=== PATIENT | female | born 1940 | race Caucasian/White ===

== ENCOUNTER 2016-08-23 03:33 | Inpatient (IN) | payer MEDICARE, BC ==
[2016-08-23] MEDS ORDERED: ONDANSETRON 4 MG/2 ML VIAL IVP STA (04:11)
[2016-08-23 04:33] LABS: Basophils % (A) 0 %; CH 25.3; CHCM 30.8; Eosinophils # (A) 0.2 k/uL (0-0.7); Eosinophils % (A) 2 %; HDW 3.01; HGB 10.3 gm/dL (11.4-16.0); Hypochromasia Moderate; Luc # (Auto) 0.08; Luc % (Auto) 1; Lymphocytes # (A) 0.9 k/uL (1.0-4.8); Lymphocytes % (A) 8 %; MCH 25.7 pg (25.0-35.0); MCHC 31.2 g/dL (31.0-37.0); MCV 82.6 fL (80.0-100.0); Mean Platelet Volume 7.1; Monocytes # (A) 0.6 k/uL (0-1.0); Monocytes % (A) 5 %; Neutrophils # (A) 9.7 k/uL (1.3-7.7); Neutrophils % (A) 85 %; RDW 15.3 % (11.5-15.5); WBC 11.5 k/uL (3.8-10.6); WBC (Perox) 11.06
[2016-08-23 04:45] LABS: Calcium 9.3 mg/dL (8.4-10.2); Potassium 4.7 mmol/L (3.5-5.1); Total Bilirubin 0.3 mg/dL (0.2-1.3); Total Protein 6.6 g/dL (6.3-8.2)
--- NOTE | 2016-08-23 05:02 | XR ---
EXAM: XR Chest, 1 View CLINICAL HISTORY: Reason: Fever TECHNIQUE: Frontal view of the chest. COMPARISON: No relevant prior studies available. FINDINGS: Lungs: Unremarkable. No consolidation. Pleural space: Unremarkable. No pneumothorax. Heart: Unremarkable. No cardiomegaly. Mediastinum: Unremarkable. Bones/joints: Unremarkable. Soft tissues: Left axillary surgical clips. Vasculature: Atherosclerosis of the aorta. IMPRESSION: No acute findings.
[2016-08-23 05:05] LABS: Appearance,Urine Clear (Clear); Bacteria,Urine Rare /hpf; Bilirubin,Urine Negative (Negative); Glucose,Urine (UA) Negative (Negative); Ketones,Urine Negative (Negative); Leukocyte Esterase,Urine Negative (Negative); Nitrite,Urine Negative (Negative); Particle Count 752; Protein,Urine Negative (Negative); RBC,Urine 1 /hpf (0-5); Specific Gravity,Urine 1.009 (1.001-1.035); Squamous Epithelial Cell,Urine <1 /hpf (0-4); UA Billing (MACRO vs. MICRO) MICRO; Urobilinogen,Urine <2.0 mg/dL (<2.0); WBC,Urine 1 /hpf (0-5)
[2016-08-23 05:07] LABS: Partial Thromboplastin Time 21.5 sec (22.0-30.0)
[2016-08-23] MEDS ORDERED: ACETAMINOPHEN TAB 325 MG TAB PO STA (05:14)
[2016-08-23] MEDS ORDERED: IV VANCOMYCIN PER PHARMACY 1 EACH MISC MISCELLANE PRN (05:15)
[2016-08-23] MEDS ORDERED: LEVOFLOXACIN 750MG-D5W PMX 750 MG in DEXTROSE/WATER 1 150ML.BAG IVPB STA (05:15)
--- NOTE | 2016-08-23 05:25 | ED ---
Skin/Abscess/FB HPI - General Chief complaint: Skin/Abscess/Foreign Body Stated complaint: Sick Time Seen by Provider: 08/23/16 04:00 Source: patient Mode of arrival: wheelchair Limitations: no limitations - History of Present Illness Initial comments: This patient is a 76-year-old woman who presents tonight because she was having shaking chills. The symptoms started earlier in the night and continued until she felt that she was shaking so bad she can no longer stay home. The patient also noted that she had some redness to the skin of her breasts and that she has previously had this with cellulitis. She did not measure her temperature but she did feel warm. MD complaint: rash, discoloration -: hour(s) Tetanus Up to Date: yes Location: chest Severity: moderate Improves with: none Worsens with: none Associated symptoms: chills, rigors Treatments Prior to Arrival: none - Related Data Home Medications Medication Instructions Recorded Confirmed Aspirin 81 mg PO DAILY 08/23/16 08/23/16 Atenolol 100 mg PO DAILY 08/23/16 08/23/16 Furosemide [Lasix] 20 mg PO DAILY 08/23/16 08/23/16 Levothyroxine Sodium [Tirosint] 100 mcg PO DAILY 08/23/16 08/23/16 Lisinopril [Zestril] 10 mg PO DAILY 08/23/16 08/23/16 Omeprazole 20 mg PO DAILY 08/23/16 08/23/16 Potassium Chloride [Klor-Con 10] 10 meq PO BID 08/23/16 08/23/16 Simvastatin [Zocor] 20 mg PO DAILY 08/23/16 08/23/16 amLODIPine BESYLATE [Norvasc] 10 mg PO DAILY 08/23/16 08/23/16 rOPINIRole HCL 1 mg PO HS 08/23/16 08/23/16 Allergies Allergy/AdvReac Type Severity Reaction Status Date / Time meperidine [From Demerol] AdvReac Nausea & Verified 08/23/16 04:04 Vomiting Review of Systems ROS Statement: Those systems with pertinent positive or pertinent negative responses have been documented in the HPI. ROS Other: All systems not noted in ROS Statement are negative. Constitutional: Reports: fever, chills. Denies: weakness Respiratory: Reports: cough. Denies: dyspnea, wheezes, hemoptysis Cardiovascular: Denies: chest pain, palpitations, edema Gastrointestinal: Denies: abdominal pain, nausea, vomiting, diarrhea Genitourinary: Denies: dysuria, hematuria Musculoskeletal: Denies: back pain Skin: Reports: as per HPI, rash, change in color Neurological: Denies: headache, weakness, numbness Past Medical History Past Medical History: Cancer, GERD/Reflux, Hyperlipidemia, Hypertension, Osteoarthritis (OA), Thyroid Disorder Additional Past Medical History / Comment(s): bilat breast CA "25 yrs ago" History of Any Multi-Drug Resistant Organisms: None Reported Past Surgical History: Appendectomy, Section, Orthopedic Surgery Additional Past Surgical History / Comment(s): portion of left breast and right breast removed, c- sect x 4, "tailbone removed" Past Psychological History: No Psychological Hx Reported Smoking Status: Former smoker Past Alcohol Use History: None Reported Past Drug Use History: None Reported General Exam Limitations: no limitations General appearance: alert, in no apparent distress Head exam: Present: atraumatic, normocephalic Eye exam: Present: normal appearance. Absent: scleral icterus, conjunctival injection Neck exam: Present: normal inspection. Absent: meningismus Respiratory exam: Present: normal lung sounds bilaterally. Absent: respiratory distress, wheezes, rales, rhonchi, stridor Cardiovascular Exam: Present: regular rate, normal rhythm, normal heart sounds. Absent: systolic murmur, diastolic murmur, rubs, gallop GI/Abdominal exam: Present: soft. Absent: distended, tenderness, guarding, rebound, mass Extremities exam: Present: normal inspection, normal capillary refill. Absent: pedal edema, calf tenderness Neurological exam: Present: alert Skin exam: Present: warm, dry, erythema, other (There is erythema, warmth to the anterior chest, overlying the breasts. The area of involvement of the right breast is larger than on the left side. There is no ulceration. No drainage.) Course Vital Signs 08/23/16 08/23/16 03:45 05:16 Temperature 100.7 F H 102.4 F H Pulse Rate 86 85 Respiratory 18 18 Rate Blood Pressure 195/77 167/72 O2 Sat by Pulse 95 98 Oximetry Medical Decision Making - Lab Data Result diagrams: 08/23/16 04:03 08/23/16 04:03 Lab Results 0508/23/16 08/23/16 Range/Units 04:03 04:03 04:03 WBC 11.5 H (3.8-10.6) k/uL RBC 4.00 (3.80-5.40) m/uL Hgb 10.3 L (11.4-16.0) gm/dL Hct 33.0 L (34.0-46.0) % MCV 82.6 (80.0-100.0) fL MCH 25.7 (25.0-35.0) pg MCHC 31.2 (31.0-37.0) g/dL RDW 15.3 (11.5-15.5) % Plt Count 233 (150-450) k/uL Neutrophils % 85 % Lymphocytes % 8 % Monocytes % 5 % Eosinophils % 2 % Basophils % 0 % Neutrophils # 9.7 H (1.3-7.7) k/uL Lymphocytes # 0.9 L (1.0-4.8) k/uL Monocytes # 0.6 (0-1.0) k/uL Eosinophils # 0.2 (0-0.7) k/uL Basophils # 0.0 (0-0.2) k/uL Hypochromasia Moderate PT (9.0-12.0) sec INR (<1.1) APTT (22.0-30.0) sec Sodium 141 (137-145) mmol/L Potassium 4.7 (3.5-5.1) mmol/L Chloride 110 H (98-107) mmol/L Carbon Dioxide 22 (22-30) mmol/L Anion Gap 9 mmol/L BUN 21 H (7-17) mg/dL Creatinine 1.10 H (0.52-1.04) mg/dL Est GFR (MDRD) Af Amer 58 (>60 ml/min/1.73 sqM) Est GFR (MDRD) Non-Af 48 (>60 ml/min/1.73 sqM) Glucose 112 H (74-99) mg/dL Plasma Lactic Acid Jovani 1.6 (0.7-2.0) mmol/L Calcium 9.3 (8.4-10.2) mg/dL Total Bilirubin 0.3 (0.2-1.3) mg/dL AST 21 (14-36) U/L ALT 22 (9-52) U/L Alkaline Phosphatase 77 (38-126) U/L Total Protein 6.6 (6.3-8.2) g/dL Albumin 3.8 (3.5-5.0) g/dL Urine Color Urine Appearance (Clear) Urine pH (5.0-8.0) Ur Specific [place] (1.001-1.035) Urine Protein (Negative) Urine Glucose (UA) (Negative) Urine Ketones (Negative) Urine Blood (Negative) Urine Nitrite (Negative) Urine Bilirubin (Negative) Urine Urobilinogen (<2.0) mg/dL Ur Leukocyte Esterase (Negative) Urine RBC (0-5) /hpf Urine WBC (0-5) /hpf Ur Squamous Epith Cells (0-4) /hpf Urine Bacteria (None) /hpf 08/23/16 08/23/16 Range/Units 04:03 04:39 WBC (3.8-10.6) k/uL RBC (3.80-5.40) m/uL Hgb (11.4-16.0) gm/dL Hct (34.0-46.0) % MCV (80.0-100.0) fL MCH (25.0-35.0) pg MCHC (31.0-37.0) g/dL RDW (11.5-15.5) % Plt Count (150-450) k/uL Neutrophils % % Lymphocytes % % Monocytes % % Eosinophils % % Basophils % % Neutrophils # (1.3-7.7) k/uL Lymphocytes # (1.0-4.8) k/uL Monocytes # (0-1.0) k/uL Eosinophils # (0-0.7) k/uL Basophils # (0-0.2) k/uL Hypochromasia PT 10.0 (9.0-12.0) sec INR 1.0 (<1.1) APTT 21.5 L (22.0-30.0) sec Sodium (137-145) mmol/L Potassium (3.5-5.1) mmol/L Chloride (98-107) mmol/L Carbon Dioxide (22-30) mmol/L Anion Gap mmol/L BUN (7-17) mg/dL Creatinine (0.52-1.04) mg/dL Est GFR (MDRD) Af Amer (>60 ml/min/1.73 sqM) Est GFR (MDRD) Non-Af (>60 ml/min/1.73 sqM) Glucose (74-99) mg/dL Plasma Lactic Acid Jovani (0.7-2.0) mmol/L Calcium (8.4-10.2) mg/dL Total Bilirubin (0.2-1.3) mg/dL AST (14-36) U/L ALT (9-52) U/L Alkaline Phosphatase (38-126) U/L Total Protein (6.3-8.2) g/dL Albumin (3.5-5.0) g/dL Urine Color Light Yellow Urine Appearance Clear (Clear) Urine pH 5.0 (5.0-8.0) Ur Specific [place] 1.009 (1.001-1.035) Urine Protein Negative (Negative) Urine Glucose (UA) Negative (Negative) Urine Ketones Negative (Negative) Urine Blood Trace H (Negative) Urine Nitrite Negative (Negative) Urine Bilirubin Negative (Negative) Urine Urobilinogen <2.0 (<2.0) mg/dL Ur Leukocyte Esterase Negative (Negative) Urine RBC 1 (0-5) /hpf Urine WBC 1 (0-5) /hpf Ur Squamous Epith Cells <1 (0-4) /hpf Urine Bacteria Rare H (None) /hpf Disposition Clinical Impression: Cellulitis Disposition: ADMITTED IP TO THIS HOSP Condition: Fair Referrals: Marta Burgess DO [Primary Care Provider] - 1-2 days
[2016-08-23] MEDS ORDERED: NALOXONE 0.4 MG/ML 1 ML VIAL IV PRN (05:26)
[2016-08-23] MEDS ORDERED: VANCOMYCIN 1,500 MG in SODIUM CHLORIDE 0.9% 250 ML IVPB STA (05:27)
[2016-08-23] MEDS: SODIUM CHLORIDE 0.9% 1,000 ML IV SCH ×2 (05:36→17:49)
[2016-08-23] MEDS: ATORVASTATIN 10 MG TAB PO SCH (09:54)
[2016-08-23] MEDS: amLODIPine 10 MG TAB PO SCH (09:55)
[2016-08-23] MEDS: ASPIRIN 81 MG CHEW PO SCH (09:55)
[2016-08-23] MEDS: POTASSIUM CHLORIDE ER 10 MEQ TAB.ER.PRT PO SCH ×2 (09:55→19:54)
[2016-08-23] MEDS: LISINOPRIL 10 MG TAB PO SCH (09:55)
[2016-08-23] MEDS: FUROSEMIDE 20 MG TAB PO SCH (09:55)
[2016-08-23] MEDS: PANTOPRAZOLE 40 MG TABLET PO SCH (09:55)
[2016-08-23] MEDS: LEVOTHYROXINE 100 MCG TAB PO SCH (09:55)
[2016-08-23] MEDS: ATENOLOL 50 MG TAB PO SCH (09:55)
[2016-08-23] MEDS: NAFCILLIN 2 GM in SODIUM CHLORIDE 0.9% 100 ML IVPB SCH ×3 (11:20→17:53)
--- NOTE | 2016-08-23 11:22 | P.HPIM ---
History of Present Illness H&P Date: 08/23/16 Chief Complaint: Fever chills cellulitis both breasts Pleasant 76-year-old female whose primary care provider is Dr. santiago who Dr. Moya is covering for presented to the emergency room with a chief complaint of waking up shaking feeling chilled. Patient stated that she got up out of bed went into the bathroom stated she had pain in her bilateral breast noted significant redness to the skin of the breast right greater than the left.. Patient stated that she did not take her temperature felt warm. Patient stated that she was concerned and came into the emergency room to be evaluated for the above-mentioned symptoms. In the emergency room the temp was elevated 102.4. With a white count of 11.5 Patient states she has had a similar episode a cellulitis involving the bilateral breasts. Patient states about 6-8 weeks ago she was treated in the outpatient setting for cellulitis involving the left breast. Patient states she was given a prescription for an oral antibiotic not sure of the name of the antibiotic took it until it was gone did note that there was an improvement in the redness involving the left breast. Patient does give a history of having breast cancer left breast 25 years ago treated with radiation treatment and chemotherapy. Patient stated about 15 years ago had bilateral breast reductions done. Patient's states that the right breast increased swelling and increased tenderness compared to the left breast. Denies any chest pain dizziness lightheadedness or shortness of breath states that she is normally an active individual is on no new medication Review of Systems Essentially unremarkable except as mentioned in the present illness Past Medical History Past Medical History: Cancer, GERD/Reflux, Hyperlipidemia, Hypertension, Osteoarthritis (OA), Thyroid Disorder Additional Past Medical History / Comment(s): bilat breast CA "25 yrs ago" History of Any Multi-Drug Resistant Organisms: None Reported Past Surgical History: Appendectomy, Section, Orthopedic Surgery Additional Past Surgical History / Comment(s): portion of left breast and right breast removed, c- sect x 4, "tailbone removed" Past Psychological History: No Psychological Hx Reported Smoking Status: Former smoker Past Alcohol Use History: None Reported Past Drug Use History: None Reported - Past Family History Sister(s) Family Medical History: Cancer Additional Family Medical History / Comment(s): Patient's sister had leukemia Brother(s) Family Medical History: Coronary Artery Disease (CAD) Medications and Allergies Home Medications Medication Instructions Recorded Confirmed Type Acetaminophen [Tylenol Arthritis] 1,300 mg PO DAILY 08/23/16 08/23/16 History Aspirin 81 mg PO DAILY 08/23/16 08/23/16 History Atenolol 100 mg PO DAILY 08/23/16 08/23/16 History Celecoxib [CeleBREX] 200 mg PO DAILY 08/23/16 08/23/16 History Diclofenac Sodium [Voltaren Gel] 1 applic TOPICAL Q6H PRN 08/23/16 08/23/16 History Fexofenadine HCl [Anali Allergy] 180 mg PO DAILY 08/23/16 08/23/16 History Furosemide [Lasix] 20 mg PO DAILY 08/23/16 08/23/16 History Levothyroxine Sodium [Tirosint] 100 mcg PO DAILY 08/23/16 08/23/16 History Lisinopril [Zestril] 10 mg PO DAILY 08/23/16 08/23/16 History Omeprazole 20 mg PO DAILY PRN 08/23/16 08/23/16 History Potassium Chloride [Klor-Con 10] 10 meq PO BID 08/23/16 08/23/16 History Simvastatin [Zocor] 20 mg PO DAILY@1200 08/23/16 08/23/16 History amLODIPine BESYLATE [Norvasc] 10 mg PO DAILY 08/23/16 08/23/16 History rOPINIRole HCL 1 mg PO HS 08/23/16 08/23/16 History rOPINIRole HCL [Requip] 0.5 mg PO DAILY PRN 08/23/16 08/23/16 History Allergies Allergy/AdvReac Type Severity Reaction Status Date / Time meperidine [From Demerol] AdvReac Nausea & Verified 08/23/16 13:27 Vomiting Physical Exam Vitals: Vital Signs Temp Pulse Pulse Resp BP BP Pulse Ox 08/23/16 08:00 99.4 F 73 16 128/67 93 L 08/23/16 06:39 97.2 F L 74 18 137/63 98 08/23/16 05:37 100.8 F H 72 18 165/75 98 08/23/16 05:16 102.4 F H 85 18 167/72 98 08/23/16 03:45 100.7 F H 86 18 195/77 95 Intake and Output 08/22/16 08/23/16 08/23/16 22:59 06:59 14:59 Other: Weight 78.925 kg GENERAL APPEARANCE: 76-year-old female pleasant talkative patient is alert, oriented, in no acute distress. VITAL SIGNS: Reviewed HEENT: Head is normocephalic and atraumatic. Pupils are equal and reactive. The nares are patent. Oropharynx is clear without lesions. NECK: Supple without lymphadenopathy. Traches midline. Chest significant erythrema warmth to the anterior chest wall involving the bilateral breast. The right breast is larger with more tenderness compared to the left breast. There is no open ulceration areas. The skin is intact. With palpitation the right breast is tender. Surgically the nipples have been removed HEART: S1, S2. Regular rate and rhythm. No murmur noted denying chest pain LUNGS: No crackles or wheezes are heard. On room air adequate air movement ABDOMEN: Soft, nontender, nondistended with good bowel sounds. No peritoneal signs. No palpable organomegaly or masses. EXTREMITIES: Normal skin color and turgor. No cyanosis, rash, ulceration, clubbing or edema. Radial pedal pulses are 2/4 bilaterally. NEUROLOGICAL: No focal deficits. Strength and sensation are grossly intact. Results CBC & Chem 7: 08/24/16 07:16 08/24/16 07:16 Labs: Abnormal Lab Results - Last 24 Hours (Table) 08/23/16 08/23/16 08/23/16 Range/Units 04:03 04:03 04:03 WBC 11.5 H (3.8-10.6) k/uL Hgb 10.3 L (11.4-16.0) gm/dL Hct 33.0 L (34.0-46.0) % Neutrophils # 9.7 H (1.3-7.7) k/uL Lymphocytes # 0.9 L (1.0-4.8) k/uL APTT 21.5 L (22.0-30.0) sec Chloride 110 H (98-107) mmol/L BUN 21 H (7-17) mg/dL Creatinine 1.10 H (0.52-1.04) mg/dL Glucose 112 H (74-99) mg/dL Urine Blood (Negative) Urine Bacteria (None) /hpf 08/23/16 Range/Units 04:39 WBC (3.8-10.6) k/uL Hgb (11.4-16.0) gm/dL Hct (34.0-46.0) % Neutrophils # (1.3-7.7) k/uL Lymphocytes # (1.0-4.8) k/uL APTT (22.0-30.0) sec Chloride (98-107) mmol/L BUN (7-17) mg/dL Creatinine (0.52-1.04) mg/dL Glucose (74-99) mg/dL Urine Blood Trace H (Negative) Urine Bacteria Rare H (None) /hpf Assessment and Plan Plan: Impression Present on admission leukocytosis febrile suspect sepsis due to cellulitis bilateral breast Present on admission cellulitis bilateral breasts failed outpatient treatment oral antibiotic treatment 6 weeks prior History of breast cancer left breast 25 years ago History of breast reduction 15 years ago Hypertension essential benign Plan Resume home meds as appropriate Infectious disease consultation IV vancomycin and nafcillin as ordered DVT and GI prophylaxis Repeat labs in the morning Further recommendations pending will follow Pain control The above dictated assessment and findings were discussed with dr moya . Impression and the plan of care have been dictated as directed. Johana Frausto nurse practitioner acting as a scribe for dr moya
[2016-08-23 14:42] VITALS: BMI 31.8
[2016-08-23] MEDS: MELOXICAM 7.5 MG TAB PO SCH (19:04)
[2016-08-23] MEDS: ACETAMINOPHEN TAB 325 MG TAB PO PRN (19:53)
[2016-08-23] MEDS ORDERED: VANCOMYCIN 1,250 MG in SODIUM CHLORIDE 0.9% 250 ML IVPB SCH (21:00)
[2016-08-24] MEDS: NAFCILLIN 2 GM in SODIUM CHLORIDE 0.9% 100 ML IVPB SCH ×2 (00:31→06:15)
[2016-08-24] MEDS: SODIUM CHLORIDE 0.9% 1,000 ML IV SCH ×3 (00:31→21:38)
[2016-08-24] MEDS: LEVOTHYROXINE 100 MCG TAB PO SCH (06:15)
[2016-08-24 08:10] LABS: Basophils % (A) 0 %; CH 25.1; CHCM 29.5; Eosinophils # (A) 0.1 k/uL (0-0.7); Eosinophils % (A) 1 %; HCT 28.7 % (34.0-46.0); HDW 2.84; Hypochromasia Marked; Luc # (Auto) 0.12; Luc % (Auto) 2; Lymphocytes % (A) 16 %; MCHC 30.4 g/dL (31.0-37.0); MCV 85.4 fL (80.0-100.0); Mean Platelet Volume 6.7; Monocytes # (A) 0.3 k/uL (0-1.0); Monocytes % (A) 5 %; Neutrophils # (A) 4.6 k/uL (1.3-7.7); Neutrophils % (A) 76 %; RBC 3.36 m/uL (3.80-5.40); RDW 15.6 % (11.5-15.5); WBC 6.1 k/uL (3.8-10.6); WBC (Perox) 6.19
[2016-08-24 08:14] LABS: HGB 8.7 gm/dL (11.4-16.0)
[2016-08-24 08:20] LABS: Calcium 8.3 mg/dL (8.4-10.2); Total Bilirubin 0.8 mg/dL (0.2-1.3); Total Protein 5.2 g/dL (6.3-8.2)
[2016-08-24] MEDS: LISINOPRIL 10 MG TAB PO SCH (09:46)
[2016-08-24] MEDS: MELOXICAM 7.5 MG TAB PO SCH (09:46)
[2016-08-24] MEDS: FUROSEMIDE 20 MG TAB PO SCH (09:46)
[2016-08-24] MEDS: amLODIPine 10 MG TAB PO SCH (09:46)
[2016-08-24] MEDS: PANTOPRAZOLE 40 MG TABLET PO SCH (09:46)
[2016-08-24] MEDS: ASPIRIN 81 MG CHEW PO SCH (09:46)
[2016-08-24] MEDS: ATORVASTATIN 10 MG TAB PO SCH (09:46)
[2016-08-24] MEDS: POTASSIUM CHLORIDE ER 10 MEQ TAB.ER.PRT PO SCH ×2 (09:47→21:37)
--- NOTE | 2016-08-24 09:59 | P.PN ---
Subjective 76-year-old female being seen on rounds this morning there is increased redness and tenderness to the bilateral breast impaired to admission patient states the breast more "tender to the touch" patient's temp this morning 97.9 with white count down to 6.1 Hospital course Patient's initial presentation to the emergency room with a sudden onset of fever chills with bilateral cellulitis involving both breasts. In the emergency room the temp was 102 with a white count 11.5. Patient stated that she had a similar episode 6-8 weeks ago was treated in the outpatient setting for cellulitis involving the left breast with a course of antibiotics that she did complete and did follow-up with one week later and the PCPs office with a noted improvement. Patient does have a history of having breast cancer left breast 25 years ago with bilateral breast reduction 15 years ago the breast cancer on the left breast was treated with radiation treatment 25 years ago no chemotherapy Objective - Vital Signs Vital signs: Vital Signs Temp 97.9 F 08/24/16 07:00 Pulse 58 L 08/24/16 09:44 Resp 16 08/24/16 07:00 BP 124/60 08/24/16 09:44 Pulse Ox 95 08/24/16 07:00 Intake & Output 08/23/16 08/24/16 08/24/16 18:59 06:59 18:59 Intake Total 2019 1099 Balance 2019 1100 Weight 79 kg Intake: Intake, IV Titration 1300 800 Amount Nafcillin 2 gm In Sodium 100 100 Chloride 0.9% 100 ml @ 100 mls/min IVPB Q6H [facility] Rx#:[id number] Sodium Chloride 0.9% 1, 800 700 000 ml @ 100 mls/hr IV . Q10H [facility] Rx#:[id number] Vancomycin 1,250 mg In 250 Sodium Chloride 0.9% 250 ml @ 125 mls/hr IVPB Q24H [facility] Rx#:[id number] Vancomycin 1,500 mg In 150 Sodium Chloride 0.9% 250 ml @ 125 mls/hr IVPB ONCE STA Rx#:[id number] Oral 720 300 Other: Voiding Method Toilet # Voids 3 1 - Exam Physical exam 76-year-old female resting in bed states the bilateral breast are more tender to the touch Lungs essentially clear adequate air movement on room air Heart S1-S2 audible and regular Abdomen soft nontender no reports of nausea vomiting no frequent stooling Chest bilateral breast cellulitis positive tenderness soft Extremities no edema noted - Labs CBC & Chem 7: 08/24/16 07:16 08/24/16 07:16 Labs: Abnormal Lab Results - Last 24 Hours (Table) 08/24/16 08/24/16 Range/Units 07:16 07:16 RBC 3.36 L (3.80-5.40) m/uL Hgb 8.7 L D (11.4-16.0) gm/dL Hct 28.7 L (34.0-46.0) % MCHC 30.4 L (31.0-37.0) g/dL RDW 15.6 H (11.5-15.5) % Chloride 110 H (98-107) mmol/L BUN 18 H (7-17) mg/dL Creatinine 1.30 H (0.52-1.04) mg/dL Calcium 8.3 L (8.4-10.2) mg/dL Total Protein 5.2 L (6.3-8.2) g/dL Albumin 2.6 L (3.5-5.0) g/dL Microbiology - Last 24 Hours (Table) 08/23/16 04:03 Blood Culture - Preliminary Blood No Growth after 24 hours 08/23/16 04:39 Urine Culture - Preliminary Urine,Voided Assessment and Plan Plan: Impression Present on admission leukocytosis febrile suspect sepsis due to cellulitis bilateral breast Present on admission cellulitis bilateral breasts failed outpatient treatment oral antibiotic treatment 6 weeks prior History of breast cancer left breast 25 years ago treated with radiation therapy History of breast reduction 15 years ago Hypertension essential benign Present on admission acute renal failure suspect due to poor oral intake Plan Resume home meds as appropriate Infectious disease consultation IV vancomycin and nafcillin as ordered DVT and GI prophylaxis Repeat labs in the morning Further recommendations pending will follow Pain control The above dictated assessment and findings were discussed with dr mack . Impression and the plan of care have been dictated as directed. Johana Frausto nurse practitioner acting as a scribe for dr mack
[2016-08-24] MEDS: ACETAMINOPHEN TAB 325 MG TAB PO PRN ×2 (10:50→20:21)
--- NOTE | 2016-08-24 11:30 | P.CONS ---
History of Present Illness - Reason for Consult Consult date: 08/24/16 - Chief Complaint Pain and swelling to the breasts - History of Present Illness 76-year-old female who presents to Hospital with a several-day history of present discomfort to her right breast. Associated with increasing amounts of erythema. She had fever and chills occurred. The erythema crossed onto her left breast. The patient relates that in the past she's had more difficulties with her left breast with cellulitis. She has the somewhat remote history of a left breast carcinoma. She underwent a lumpectomy and axillary dissection at the time of her cancer. She was treated with radiation therapy and chemotherapy therapy. She relates in the years since that she's had an occasional bout of difficulty with her left breast. She relates that she did not search developed cellulitis events until she had a bilateral breast reduction. She does believe that this is the first time that the right breast has been in the first point of infection. She does relate that she is still having some discomfort. Fever has slightly improved. The redness to the chest has not had significant improvement as of yet. Review of Systems Gen. she did have fever and chills. HEENT:Denies headache or acute visual change. Denies sinus or mouth discomforts. Denies neck stiffness or pain. Denies significant oral cavity pain. Denies difficulty on swallowing. Lungs: Denies significant shortness of breath, cough, sputum production, or hemoptysis. Cardiovascular: Denies significant shortness of breath, chest pain, chest wall pain, orthopnea, dyspnea on exertion, syncope Gastrointestinal:Denies nausea, vomiting, diarrhea, constipation, hematemesis, melena, hematochezia. No no significant change of bowel habit noticed. Musculoskeletal: denies significant myalgias or arthralgias. No new joint swelling. Denies new back pain. Skin: The significant erythema and tenderness the bilateral breast as noted in the HPI no other skin lesions. Denies any significant difficulty with upper extremity swelling after her surgeries. Does not have difficulties with lymphedema or lymphangitis in the past. Neuro: Denies headache or visual change. Denies any new onset weakness or difficulty with ambulation. Denies falls or seizures. Psychiatric:Denies anxiety or depression. Endocrine: Denies significant fatigue, denies significant weight loss or weight gain. Past Medical History Past Medical History: Cancer, GERD/Reflux, Hyperlipidemia, Hypertension, Osteoarthritis (OA), Thyroid Disorder Additional Past Medical History / Comment(s): bilat breast CA "25 yrs ago" History of Any Multi-Drug Resistant Organisms: None Reported Past Surgical History: Appendectomy, Section, Orthopedic Surgery Additional Past Surgical History / Comment(s): portion of left breast and right breast removed, c- sect x 4, "tailbone removed" Past Psychological History: No Psychological Hx Reported Additional Psychological History / Comment(s): lives with the family. No animal exposures. Retired. No experience. Travel history Smoking Status: Former smoker (Briefly many years ago for no more than about a month) Past Alcohol Use History: None Reported Past Drug Use History: None Reported - Past Family History Sister(s) Family Medical History: Cancer Additional Family Medical History / Comment(s): Patient's sister had leukemia Brother(s) Family Medical History: Coronary Artery Disease (CAD) Medications and Allergies Home Medications and Allergies Comment(s): Current Medications Acetaminophen (Tylenol Tab) 650 mg PO Q6HR PRN PRN Reason: Mild Pain or Fever > 100.5 Last Admin: 08/24/16 10:50 Dose: 650 mg Amlodipine Besylate (Norvasc) 10 mg PO DAILY [facility] Last Admin: 08/24/16 09:46 Dose: 10 mg Aspirin (Aspirin) 81 mg PO DAILY [facility] Last Admin: 08/24/16 09:46 Dose: 81 mg Atenolol (Tenormin) 100 mg PO DAILY [facility] Last Admin: 08/23/16 09:55 Dose: 100 mg Atorvastatin Calcium (Lipitor) 10 mg PO DAILY [facility] Last Admin: 08/24/16 09:46 Dose: 10 mg Furosemide (Lasix) 20 mg PO DAILY [facility] Last Admin: 08/24/16 09:46 Dose: 20 mg Sodium Chloride (Saline 0.9%) 1,000 mls @ 100 mls/hr IV .Q10H [facility] Last Admin: 08/24/16 00:31 Dose: 100 mls/hr Daptomycin 500 mg/ Sodium (Chloride) 50 mls @ 100 mls/hr IV Q24H [facility] Ketorolac Tromethamine (Toradol) 15 mg IVP Q6HR [facility] Stop: 08/25/16 06:01 Levothyroxine Sodium (Synthroid) 100 mcg PO 0630 [facility] Last Admin: 08/24/16 06:15 Dose: 100 mcg Lisinopril (Zestril) 10 mg PO DAILY [facility] Last Admin: 08/24/16 09:46 Dose: 10 mg Naloxone HCl (Narcan) 0.2 mg IV Q2M PRN PRN Reason: Opioid Reversal Pantoprazole Sodium (Protonix) 40 mg PO AC-BRKFST [facility] Last Admin: 08/24/16 09:46 Dose: 40 mg Potassium Chloride (K-Dur 10) 10 meq PO BID [facility] Last Admin: 08/24/16 09:47 Dose: 10 meq Ropinirole HCl (Requip) 1 mg PO HS [facility] Last Admin: 08/23/16 19:54 Dose: 1 mg Home Medications Medication Instructions Recorded Confirmed Type Acetaminophen [Tylenol Arthritis] 1,300 mg PO DAILY 08/23/16 08/23/16 History Aspirin 81 mg PO DAILY 08/23/16 08/23/16 History Atenolol 100 mg PO DAILY 08/23/16 08/23/16 History Celecoxib [CeleBREX] 200 mg PO DAILY 08/23/16 08/23/16 History Diclofenac Sodium [Voltaren Gel] 1 applic TOPICAL Q6H PRN 08/23/16 08/23/16 History Fexofenadine HCl [Anali Allergy] 180 mg PO DAILY 08/23/16 08/23/16 History Furosemide [Lasix] 20 mg PO DAILY 08/23/16 08/23/16 History Levothyroxine Sodium [Tirosint] 100 mcg PO DAILY 08/23/16 08/23/16 History Lisinopril [Zestril] 10 mg PO DAILY 08/23/16 08/23/16 History Omeprazole 20 mg PO DAILY PRN 08/23/16 08/23/16 History Potassium Chloride [Klor-Con 10] 10 meq PO BID 08/23/16 08/23/16 History Simvastatin [Zocor] 20 mg PO DAILY@1200 08/23/16 08/23/16 History amLODIPine BESYLATE [Norvasc] 10 mg PO DAILY 08/23/16 08/23/16 History rOPINIRole HCL 1 mg PO HS 08/23/16 08/23/16 History rOPINIRole HCL [Requip] 0.5 mg PO DAILY PRN 08/23/16 08/23/16 History Allergies Allergy/AdvReac Type Severity Reaction Status Date / Time meperidine [From Demerol] AdvReac Nausea & Verified 08/23/16 13:27 Vomiting Physical Exam Vitals: Vital Signs Temp Pulse Resp BP BP Pulse Ox 08/24/16 09:44 58 L 124/60 08/24/16 07:00 97.9 F 64 16 98/46 95 08/23/16 23:25 98.5 F 65 16 111/52 93 L 08/23/16 15:41 73 16 08/23/16 15:00 99 F 68 16 137/63 96 Intake and Output 08/23/16 08/24/16 08/24/16 22:59 06:59 14:59 Intake Total 1100 Balance 1100 Intake: Intake, IV Titration 800 Amount Nafcillin 2 gm In Sodium 100 Chloride 0.9% 100 ml @ 100 mls/min IVPB Q6H [facility] Rx#:[id number] Sodium Chloride 0.9% 1, 700 000 ml @ 100 mls/hr IV . Q10H [facility] Rx#:[id number] Oral 300 Other: Voiding Method Toilet # Voids 3 1 Pleasant 76-year-old woman who is mildly uncomfortable but not in distress HEENT: Anicteric conjunctiva are pink and moist nasal mucosa grossly intact without significant lesions, there is no thrush. Neck: The neck is supple without significant lymphadenopathy or thyromegaly. Lungs: Good bilateral air entry without significant crackles or wheezing. There is no significant bronchial sounds. There is no egophony or dullness. Heart: Regular rate and rhythm with an audible S1-S2, no S3 no S4. There is no significant murmur click or rub, PMI was nondisplaced. Abdomen: Obese, Positive bowel sounds soft and nontender without palpable masses or organomegaly. There was no guarding or rebound. Extremities: The upper extremities have excellent pulses they are symmetric, no significant petechiae or telangiectasia. No splinter hemorrhages were noted. The lower extremities are free from significant edema. The peripheral pulses were 2+ and symmetric. Neuro: Awake alert oriented to person place and time. There are no acute new gross focal sensory motor deficits. Breasts: With the nurse present the patient is evaluated. There is evidence of the prior breast reduction. There is not extensive swelling to either breast. However there is dense erythema to both breasts. The left breast does have evidence of the prior surgery. And there is the woody texture to the breast since his radiation therapy. It however is not very tender. There is no left axillary tenderness. No other abnormal lymph nodes are noted. In the left arm has no evidence of any lymphedema or lymphangitis. The erythema does travel minimally onto the left chest wall just above the breast Results CBC & Chem 7: 08/24/16 07:16 08/24/16 07:16 Labs: Abnormal Lab Results - Last 24 Hours (Table) 08/24/16 08/24/16 Range/Units 07: 07:16 RBC 3.36 L (3.80-5.40) m/uL Hgb 8.7 L D (11.4-16.0) gm/dL Hct 28.7 L (34.0-46.0) % MCHC 30.4 L (31.0-37.0) g/dL RDW 15.6 H (11.5-15.5) % Chloride 110 H (98-107) mmol/L BUN 18 H (7-17) mg/dL Creatinine 1.30 H (0.52-1.04) mg/dL Calcium 8.3 L (8.4-10.2) mg/dL Total Protein 5.2 L (6.3-8.2) g/dL Albumin 2.6 L (3.5-5.0) g/dL Microbiology - Last 24 Hours (Table) 08/23/16 04:03 Blood Culture - Preliminary Blood No Growth after 24 hours 08/23/16 04:39 Urine Culture - Preliminary Urine,Voided Laboratory Results WBC 6.1 k/uL (3.8-10.6) 08/24/16 07:16 RBC 3.36 m/uL (3.80-5.40) L 08/24/16 07:16 Hgb 8.7 gm/dL (11.4-16.0) L D 08/24/16 07:16 Hct 28.7 % (34.0-46.0) L 08/24/16 07:16 MCV 85.4 fL (80.0-100.0) 08/24/16 07:16 MCH 26.0 pg (25.0-35.0) 08/24/16 07:16 MCHC 30.4 g/dL (31.0-37.0) L 08/24/16 07:16 RDW 15.6 % (11.5-15.5) H 08/24/16 07:16 Plt Count 172 k/uL (150-450) 08/24/16 07:16 Neutrophils % 76 % 08/24/16 07:16 Lymphocytes % 16 % 08/24/16 07:16 Monocytes % 5 % 08/24/16 07:16 Eosinophils % 1 % 08/24/16 07:16 Basophils % 0 % 08/24/16 07:16 Neutrophils # 4.6 k/uL (1.3-7.7) 08/24/16 07:16 Lymphocytes # 1.0 k/uL (1.0-4.8) 08/24/16 07:16 Monocytes # 0.3 k/uL (0-1.0) 08/24/16 07:16 Eosinophils # 0.1 k/uL (0-0.7) 08/24/16 07:16 Basophils # 0.0 k/uL (0-0.2) 08/24/16 07:16 Hypochromasia Marked 08/24/16 07:16 PT 10.0 sec (9.0-12.0) 08/23/16 04:03 INR 1.0 (<1.1) 08/23/16 04:03 APTT 21.5 sec (22.0-30.0) L 08/23/16 04:03 Sodium 138 mmol/L (137-145) 08/24/16 07:16 Potassium 4.0 mmol/L (3.5-5.1) 08/24/16 07:16 Chloride 110 mmol/L (98-107) H 08/24/16 07:16 Carbon Dioxide 22 mmol/L (22-30) 08/24/16 07:16 Anion Gap 6 mmol/L 08/24/16 07:16 BUN 18 mg/dL (7-17) H 08/24/16 07:16 Creatinine 1.30 mg/dL (0.52-1.04) H 08/24/16 07:16 Est GFR (MDRD) Af Amer 48 (>60 ml/min/1.73 sqM) 08/24/16 07:16 Est GFR (MDRD) Non-Af 40 (>60 ml/min/1.73 sqM) 08/24/16 07:16 Glucose 89 mg/dL (74-99) 08/24/16 07:16 Plasma Lactic Acid Jovani 1.6 mmol/L (0.7-2.0) 08/23/16 04:03 Calcium 8.3 mg/dL (8.4-10.2) L 08/24/16 07:16 Total Bilirubin 0.8 mg/dL (0.2-1.3) 08/24/16 07:16 AST 26 U/L (14-36) 08/24/16 07:16 ALT 29 U/L (9-52) 08/24/16 07:16 Alkaline Phosphatase 65 U/L (38-126) 08/24/16 07:16 Total Protein 5.2 g/dL (6.3-8.2) L 08/24/16 07:16 Albumin 2.6 g/dL (3.5-5.0) L 08/24/16 07:16 Urine Color Light Yellow 08/23/16 04:39 Urine Appearance Clear (Clear) 08/23/16 04:39 Urine pH 5.0 (5.0-8.0) 08/23/16 04:39 Ur Specific [place] 1.009 (1.001-1.035) 08/23/16 04:39 Urine Protein Negative (Negative) 08/23/16 04:39 Urine Glucose (UA) Negative (Negative) 08/23/16 04:39 Urine Ketones Negative (Negative) 08/23/16 04:39 Urine Blood Trace (Negative) H 08/23/16 04:39 Urine Nitrite Negative (Negative) 08/23/16 04:39 Urine Bilirubin Negative (Negative) 08/23/16 04:39 Urine Urobilinogen <2.0 mg/dL (<2.0) 08/23/16 04:39 Ur Leukocyte Esterase Negative (Negative) 08/23/16 04:39 Urine RBC 1 /hpf (0-5) 08/23/16 04:39 Urine WBC 1 /hpf (0-5) 08/23/16 04:39 Ur Squamous Epith Cells <1 /hpf (0-4) 08/23/16 04:39 Urine Bacteria Rare /hpf (None) H 08/23/16 04:39 Microbiology 08/23/16 04:03 Blood Blood Culture - Preliminary No Growth after 24 hours 08/23/16 04:39 Urine,Voided Urine Culture - Preliminary Assessment and Plan (1) Cellulitis of female breast Narrative/Plan: 76-year-old female who has a remote history of left breast carcinoma status post lumpectomy, left axillary dissection followed by radiation and chemotherapy. His is some difficulties with intermittent bouts of left breast cellulitis. This time over she developed some erythema to her right breast. Despite a course of oral antibiotic therapy did not improve and then it spread to her left breast. Developed a fever to 102. Developed leukocytosis and discomfort. Because he presented to the hospital for failure of outpatient antibiotic therapy. Here she's been treated with nafcillin and vancomycin therapy. Her fever has improved but she still feels somewhat poorly. The breasts are still erythematous slightly swollen and tender. If this time would alter antibiotic therapy to daptomycin. This will give us a rapidly bacteriocidal treatment for potentially resistant pathogens. Nafcillin and vancomycin are discontinued. A couple doses of Toradol will be utilized in [place] meloxicam. Her creatinine is being monitored. Will expect improvement in the next 24-48 hours. Status: Acute (2) History of left breast cancer Status: Acute (3) Leukocytosis Status: Acute (4) Fever Status: Acute
[2016-08-24] MEDS: ATENOLOL 50 MG TAB PO SCH (13:04)
[2016-08-24] MEDS: KETOROLAC 30 MG/ML 1 ML VIAL IVP SCH ×3 (13:07→23:59)
[2016-08-24] MEDS: DAPTOmycin 500 MG in SODIUM CHLORIDE 0.9% 50 ML IV SCH (13:08)
[2016-08-25] MEDS: LEVOTHYROXINE 100 MCG TAB PO SCH (06:21)
[2016-08-25] MEDS: KETOROLAC 30 MG/ML 1 ML VIAL IVP SCH (06:21)
[2016-08-25 07:52] LABS: Basophils % (A) 0 %; CH 24.8; CHCM 28.5; Eosinophils # (A) 0.2 k/uL (0-0.7); Eosinophils % (A) 4 %; HDW 2.88; HGB 8.1 gm/dL (11.4-16.0); Hypochromasia Marked; Luc % (Auto) 4; Lymphocytes # (A) 1.1 k/uL (1.0-4.8); Lymphocytes % (A) 21 %; MCH 25.4 pg (25.0-35.0); MCHC 29.1 g/dL (31.0-37.0); MCV 87.4 fL (80.0-100.0); Mean Platelet Volume 7.9; Monocytes # (A) 0.4 k/uL (0-1.0); Monocytes % (A) 7 %; Neutrophils # (A) 3.4 k/uL (1.3-7.7); Neutrophils % (A) 64 %; RDW 15.8 % (11.5-15.5); WBC 5.3 k/uL (3.8-10.6)
[2016-08-25 08:19] LABS: Calcium 8.5 mg/dL (8.4-10.2); Potassium 4.1 mmol/L (3.5-5.1); Total Bilirubin 0.4 mg/dL (0.2-1.3); Total Protein 5.4 g/dL (6.3-8.2)
[2016-08-25] MEDS: PANTOPRAZOLE 40 MG TABLET PO SCH (09:39)
[2016-08-25] MEDS: ATENOLOL 50 MG TAB PO SCH (09:39)
[2016-08-25] MEDS: POTASSIUM CHLORIDE ER 10 MEQ TAB.ER.PRT PO SCH ×2 (09:39→19:16)
[2016-08-25] MEDS: LISINOPRIL 10 MG TAB PO SCH (09:39)
[2016-08-25] MEDS: FUROSEMIDE 20 MG TAB PO SCH (09:39)
[2016-08-25] MEDS: amLODIPine 10 MG TAB PO SCH (09:40)
[2016-08-25] MEDS: ASPIRIN 81 MG CHEW PO SCH (09:40)
[2016-08-25] MEDS: SODIUM CHLORIDE 0.9% 1,000 ML IV SCH (09:40)
[2016-08-25] MEDS: ATORVASTATIN 10 MG TAB PO SCH (09:40)
[2016-08-25 12:29] LABS: % Iron Saturation 4.2 % (20-50)
[2016-08-25] MEDS: DAPTOmycin 500 MG in SODIUM CHLORIDE 0.9% 50 ML IV SCH (13:19)
--- NOTE | 2016-08-25 13:53 | P.PN ---
Subjective This is a 76-year-old female who presented with redness and swelling of bilateral breasts. She is being treated for acute cellulitis. Dr. Merchant's adjusted antibiotics and has placed her on daptomycin. She reports a slight increase in redness up into the chest wall on the left side of her breast. Patient also reporting diarrhea she had about 3 watery stools. Stool for C. diff has been ordered. She also reported a nonproductive cough. Her fluids will be hep-locked. She denies any chest pain. Denies any nausea or vomiting. Denies any urinary symptoms. Objective - Vital Signs Vital signs: Vital Signs Temp 98 F 08/25/16 07:00 Pulse 65 08/25/16 07:00 Resp 16 08/25/16 08:00 BP 138/54 08/25/16 07:00 Pulse Ox 93 L 08/25/16 07:00 Intake & Output 08/24/16 08/25/16 08/25/16 18:59 06:59 18:59 Intake Total 1870 1500 Balance 1870 1500 Intake: Intake, IV Titration 1150 1500 Amount Nafcillin 2 gm In Sodium 100 Chloride 0.9% 100 ml @ 100 mls/min IVPB Q6H [facility] Rx#:[id number] Sodium Chloride 0.9% 1, 800 1500 000 ml @ 100 mls/hr IV . Q10H [facility] Rx#:[id number] Vancomycin 1,250 mg In 250 Sodium Chloride 0.9% 250 ml @ 125 mls/hr IVPB Q24H [facility] Rx#:[id number] Oral 720 Other: Voiding Method Toilet Toilet Toilet # Voids 1 2 - Exam Head normocephalic Neck supple Lungs clear to auscultation bilaterally no wheezing or crackles Heart regular rate and rhythm S1-S2, no rub or gallop Abdomen is soft nontender nondistended positive bowel sounds no hepatosplenomegaly Extremities no edema Neuro alert and orientated to 3 Breast exam patient's breasts are swollen and red bilaterally. There is slight increase in the erythema into the chest wall on the left side - Labs CBC & Chem 7: 08/25/16 07:30 08/25/16 07:30 Labs: Abnormal Lab Results - Last 24 Hours (Table) 08/25/16 08/25/16 08/25/16 Range/Units 07:30 07:30 07:30 RBC 3.20 L (3.80-5.40) m/uL Hgb 8.1 L (11.4-16.0) gm/dL Hct 28.0 L (34.0-46.0) % MCHC 29.1 L (31.0-37.0) g/dL RDW 15.8 H (11.5-15.5) % Chloride 117 H (98-107) mmol/L Carbon Dioxide 18 L (22-30) mmol/L BUN 19 H (7-17) mg/dL Creatinine 1.27 H (0.52-1.04) mg/dL Iron 12 L (37-170) ug/dL % Saturation 4.2 L (20-50) % Total Protein 5.4 L (6.3-8.2) g/dL Albumin 2.7 L (3.5-5.0) g/dL Microbiology - Last 24 Hours (Table) 08/23/16 04:03 Blood Culture - Preliminary Blood No Growth after 48 hours 08/23/16 04:39 Urine Culture - Final Urine,Voided Assessment and Plan Plan: 1. Bilateral breast cellulitis failed outpatient antibiotic treatment. Evaluated by infectious disease. Antibiotics switched to daptomycin. Continue to monitor. Continue with current pain control 2. Sepsis secondary to bilateral breast cellulitis. Improving 3. History of breast cancer of the left breast 25 years ago treated with radiation treatment 4. History of breast reduction about 15 years ago 5. Essential hypertension 6. Acute kidney injury likely related to poor oral intake. Monitor closely. Slight improvement in creatinine to 1.27 continue with oral intake of fluids 7. Iron deficiency anemia: Hemoglobin 8.1. Start patient on ferrous sulfate 325 mg twice a day. Repeat labs in a.m. 8. Check stool for C. diff patient reporting diarrhea 9. Hep-Lock IV fluids patient complaining of cough GI prophylaxis Protonix and DVT prophylaxis subcu heparin I performed an examination of the patient and discussed their management with the physician Diagrammer And Seamer. I have reviewed the Physician Diagrammer And Seamer's notes and agree with the documented findings and plan of care
[2016-08-25] MEDS: ACETAMINOPHEN TAB 325 MG TAB PO PRN (16:08)
[2016-08-25] MEDS: FERROUS SULFATE 325 MG TAB PO SCH (19:15)
[2016-08-25] MEDS: HEPARIN SODIUM,PORCINE 5,000 UNIT/ML 1 ML VIAL SQ SCH (19:16)
[2016-08-26] MEDS: LEVOTHYROXINE 100 MCG TAB PO SCH (06:24)
[2016-08-26 07:44] LABS: Basophils % (A) 0 %; CH 25.4; Eosinophils # (A) 0.2 k/uL (0-0.7); Eosinophils % (A) 4 %; HGB 8.4 gm/dL (11.4-16.0); Hypochromasia Marked; Luc # (Auto) 0.14; Luc % (Auto) 3; Lymphocytes # (A) 1.3 k/uL (1.0-4.8); Lymphocytes % (A) 25 %; MCH 26.6 pg (25.0-35.0); MCHC 31.2 g/dL (31.0-37.0); MCV 85.2 fL (80.0-100.0); Mean Platelet Volume 7.4; Monocytes # (A) 0.3 k/uL (0-1.0); Monocytes % (A) 5 %; Neutrophils # (A) 3.2 k/uL (1.3-7.7); Neutrophils % (A) 62 %; RBC 3.17 m/uL (3.80-5.40); RDW 15.9 % (11.5-15.5); WBC 5.1 k/uL (3.8-10.6); WBC (Perox) 4.92
[2016-08-26] MEDS: FERROUS SULFATE 325 MG TAB PO SCH ×2 (07:46→20:31)
[2016-08-26] MEDS: HEPARIN SODIUM,PORCINE 5,000 UNIT/ML 1 ML VIAL SQ SCH ×2 (07:46→20:31)
[2016-08-26] MEDS: ATENOLOL 50 MG TAB PO SCH (07:46)
[2016-08-26] MEDS: amLODIPine 10 MG TAB PO SCH (07:46)
[2016-08-26] MEDS: PANTOPRAZOLE 40 MG TABLET PO SCH (07:46)
[2016-08-26] MEDS: ATORVASTATIN 10 MG TAB PO SCH (07:46)
[2016-08-26] MEDS: LISINOPRIL 10 MG TAB PO SCH (07:46)
[2016-08-26] MEDS: FUROSEMIDE 20 MG TAB PO SCH (07:46)
[2016-08-26] MEDS: ASPIRIN 81 MG CHEW PO SCH (07:46)
[2016-08-26] MEDS: ACETAMINOPHEN TAB 325 MG TAB PO PRN ×2 (07:48→14:45)
[2016-08-26] MEDS: POTASSIUM CHLORIDE ER 10 MEQ TAB.ER.PRT PO SCH ×2 (07:48→20:31)
[2016-08-26 08:11] LABS: Calcium 8.6 mg/dL (8.4-10.2); Potassium 4.3 mmol/L (3.5-5.1); Total Bilirubin 0.4 mg/dL (0.2-1.3); Total Protein 5.4 g/dL (6.3-8.2)
[2016-08-26] MEDS: DAPTOmycin 500 MG in SODIUM CHLORIDE 0.9% 50 ML IV SCH (14:47)
--- NOTE | 2016-08-26 20:09 | P.PN ---
Subjective This is a 76-year-old female who presented with redness and swelling of bilateral breasts. She is being treated for acute cellulitis. Dr. Merchant's adjusted antibiotics and has placed her on daptomycin. She reports a slight increase in redness up into the chest wall on the left side of her breast. Patient also reporting diarrhea she had about 3 watery stools. Stool for C. diff has been ordered. She also reported a nonproductive cough. Her fluids will be hep-locked. She denies any chest pain. Denies any nausea or vomiting. Denies any urinary symptoms. Objective - Vital Signs Vital signs: Vital Signs Temp 97.9 F 08/26/16 15:00 Pulse 63 08/26/16 15:00 Resp 16 08/26/16 15:48 BP 179/69 08/26/16 15:00 Pulse Ox 96 08/26/16 15:00 Intake & Output 08/26/16 08/26/16 08/27/16 06:59 18:59 06:59 Intake Total 1120 50 Balance 1120 50 Intake: Intake, IV Titration 50 Amount DAPTOmycin 500 mg In 50 Sodium Chloride 0.9% 50 ml @ 100 mls/hr IV Q24H [facility] Rx#:[id number] Oral 1120 Other: Voiding Method Toilet Toilet # Voids 2 - Exam Breast exam patient's breasts are swollen and red bilaterally. There is slight improvement in the erythema into the chest wall on the left side HEENT head normocephalic and atraumatic Neck is supple no JVD no goiter no lymphadenopathy Chest is clear to auscultation no wheezing Cardiac exam reveals regular heart sounds no gallops no murmurs Abdomen is soft nontender no organomegaly Extremity exam reveals no edema - Labs CBC & Chem 7: 08/26/16 07:13 08/26/16 07:13 Labs: Abnormal Lab Results - Last 24 Hours (Table) 08/26/16 08/26/16 Range/Units 07:13 07:13 RBC 3.17 L (3.80-5.40) m/uL Hgb 8.4 L (11.4-16.0) gm/dL Hct 27.0 L (34.0-46.0) % RDW 15.9 H (11.5-15.5) % Chloride 113 H (98-107) mmol/L Creatinine 1.12 H (0.52-1.04) mg/dL Total Protein 5.4 L (6.3-8.2) g/dL Albumin 2.7 L (3.5-5.0) g/dL Microbiology - Last 24 Hours (Table) 08/23/16 04:03 Blood Culture - Preliminary Blood No Growth after 72 hours Assessment and Plan Plan: 1. Bilateral breast cellulitis failed outpatient antibiotic treatment. Evaluated by infectious disease. Antibiotics switched to daptomycin. Continue to monitor. Continue with current pain control 2. Sepsis secondary to bilateral breast cellulitis. Improving 3. History of breast cancer of the left breast 25 years ago treated with radiation treatment 4. History of breast reduction about 15 years ago 5. Essential hypertension 6. Acute kidney injury likely related to poor oral intake. Monitor closely. Slight improvement in creatinine to 1.27 continue with oral intake of fluids 7. Iron deficiency anemia: Hemoglobin 8.1. Start patient on ferrous sulfate 325 mg twice a day. Repeat labs in a.m. 8. Check stool for C. diff patient reporting diarrhea 9. Hep-Lock IV fluids patient complaining of cough GI prophylaxis Protonix and DVT prophylaxis subcu heparin
--- NOTE | 2016-08-26 22:30 | P.PN ---
Subjective Principal diagnosis: bilat breast cellulitis 76-year-old female who presents to Hospital with a several-day history of present discomfort to her right breast. Associated with increasing amounts of erythema. She had fever and chills occurred. The erythema crossed onto her left breast. The patient relates that in the past she's had more difficulties with her left breast with cellulitis. She has the somewhat remote history of a left breast carcinoma. She underwent a lumpectomy and axillary dissection at the time of her cancer. She was treated with radiation therapy and chemotherapy therapy. She relates in the years since that she's had an occasional bout of difficulty with her left breast. She relates that she did not search developed cellulitis events until she had a bilateral breast reduction. She does believe that this is the first time that the right breast has been in the first point of infection. She does relate that she is still having some discomfort. Fever has improved. The redness to the chest started to improve. There is much less tenderness to Left axillary tenderness is also improved. Objective - Vital Signs Vital signs: Vital Signs Temp 97.9 F 08/26/16 15:00 Pulse 63 08/26/16 15:00 Resp 16 08/26/16 15:48 BP 140/80 08/26/16 22:23 Pulse Ox 96 08/26/16 15:00 Intake & Output 08/26/16 08/26/16 08/27/16 06:59 18:59 06:59 Intake Total 1120 50 Balance 1120 50 Intake: Intake, IV Titration 50 Amount DAPTOmycin 500 mg In 50 Sodium Chloride 0.9% 50 ml @ 100 mls/hr IV Q24H [facility] Rx#:[id number] Oral 1120 Other: Voiding Method Toilet Toilet # Voids 2 - Exam Pleasant 76-year-old woman who is mildly uncomfortable but not in distress HEENT: Anicteric conjunctiva are pink and moist nasal mucosa grossly intact without significant lesions, there is no thrush. Neck: The neck is supple without significant lymphadenopathy or thyromegaly. Lungs: Good bilateral air entry without significant crackles or wheezing. There is no significant bronchial sounds. There is no egophony or dullness. Heart: Regular rate and rhythm with an audible S1-S2, no S3 no S4. There is no significant murmur click or rub, PMI was nondisplaced. Abdomen: Obese, Positive bowel sounds soft and nontender without palpable masses or organomegaly. There was no guarding or rebound. Extremities: The upper extremities have excellent pulses they are symmetric, no significant petechiae or telangiectasia. No splinter hemorrhages were noted. The lower extremities are free from significant edema. The peripheral pulses were 2+ and symmetric. Neuro: Awake alert oriented to person place and time. There are no acute new gross focal sensory motor deficits. Breasts: With the nurse present the patient is evaluated. There is evidence of the prior breast reduction. There is not extensive swelling to either breast. However there is dense erythema to both breasts. The left breast does have evidence of the prior surgery. And there is the woody texture to the breast since his radiation therapy. It however is not very tender. There is mild left axillary tenderness. No other abnormal lymph nodes are noted. In the left arm has no evidence of any lymphedema or lymphangitis. The erythema has no spreading today, is improved. - Labs CBC & Chem 7: 08/26/16 07:13 08/26/16 07:13 Labs: Abnormal Lab Results - Last 24 Hours (Table) 08/26/16 08/26/16 Range/Units 07:13 07:13 RBC 3.17 L (3.80-5.40) m/uL Hgb 8.4 L (11.4-16.0) gm/dL Hct 27.0 L (34.0-46.0) % RDW 15.9 H (11.5-15.5) % Chloride 113 H (98-107) mmol/L Creatinine 1.12 H (0.52-1.04) mg/dL Total Protein 5.4 L (6.3-8.2) g/dL Albumin 2.7 L (3.5-5.0) g/dL Microbiology - Last 24 Hours (Table) 08/23/16 04:03 Blood Culture - Preliminary Blood No Growth after 72 hours Laboratory Results WBC 5.1 k/uL (3.8-10.6) 08/26/16 07:13 RBC 3.17 m/uL (3.80-5.40) L 08/26/16 07:13 Hgb 8.4 gm/dL (11.4-16.0) L 08/26/16 07:13 Hct 27.0 % (34.0-46.0) L 08/26/16 07:13 MCV 85.2 fL (80.0-100.0) 08/26/16 07:13 MCH 26.6 pg (25.0-35.0) 08/26/16 07:13 MCHC 31.2 g/dL (31.0-37.0) 08/26/16 07:13 RDW 15.9 % (11.5-15.5) H 08/26/16 07:13 Plt Count 187 k/uL (150-450) 08/26/16 07:13 Neutrophils % 62 % 08/26/16 07:13 Lymphocytes % 25 % 08/26/16 07:13 Monocytes % 5 % 08/26/16 07:13 Eosinophils % 4 % 08/26/16 07:13 Basophils % 0 % 08/26/16 07:13 Neutrophils # 3.2 k/uL (1.3-7.7) 08/26/16 07:13 Lymphocytes # 1.3 k/uL (1.0-4.8) 08/26/16 07:13 Monocytes # 0.3 k/uL (0-1.0) 08/26/16 07:13 Eosinophils # 0.2 k/uL (0-0.7) 08/26/16 07:13 Basophils # 0.0 k/uL (0-0.2) 08/26/16 07:13 Hypochromasia Marked 08/26/16 07:13 PT 10.0 sec (9.0-12.0) 08/23/16 04:03 INR 1.0 (<1.1) 08/23/16 04:03 APTT 21.5 sec (22.0-30.0) L 08/23/16 04:03 Sodium 142 mmol/L (137-145) 08/26/16 07:13 Potassium 4.3 mmol/L (3.5-5.1) 08/26/16 07:13 Chloride 113 mmol/L (98-107) H 08/26/16 07:13 Carbon Dioxide 24 mmol/L (22-30) 08/26/16 07:13 Anion Gap 5 mmol/L 08/26/16 07:13 BUN 14 mg/dL (7-17) 08/26/16 07:13 Creatinine 1.12 mg/dL (0.52-1.04) H 08/26/16 07:13 Est GFR (MDRD) Af Amer 57 (>60 ml/min/1.73 sqM) 08/26/16 07:13 Est GFR (MDRD) Non-Af 47 (>60 ml/min/1.73 sqM) 08/26/16 07:13 Glucose 91 mg/dL (74-99) 08/26/16 07:13 Plasma Lactic Acid Jovani 1.6 mmol/L (0.7-2.0) 08/23/16 04:03 Calcium 8.6 mg/dL (8.4-10.2) 08/26/16 07:13 Iron 12 ug/dL (37-170) L 08/25/16 07:30 TIBC 284 ug/dL (265-497) 08/25/16 07:30 % Saturation 4.2 % (20-50) L 08/25/16 07:30 Ferritin 24 ng/mL (11-264) 08/25/16 07:30 Total Bilirubin 0.4 mg/dL (0.2-1.3) 08/26/16 07:13 AST 14 U/L (14-36) 08/26/16 07:13 ALT 26 U/L (9-52) 08/26/16 07:13 Alkaline Phosphatase 67 U/L (38-126) 08/26/16 07:13 Total Protein 5.4 g/dL (6.3-8.2) L 08/26/16 07:13 Albumin 2.7 g/dL (3.5-5.0) L 08/26/16 07:13 Urine Color Light Yellow 08/23/16 04:39 Urine Appearance Clear (Clear) 08/23/16 04:39 Urine pH 5.0 (5.0-8.0) 08/23/16 04:39 Ur Specific [place] 1.009 (1.001-1.035) 08/23/16 04:39 Urine Protein Negative (Negative) 08/23/16 04:39 Urine Glucose (UA) Negative (Negative) 08/23/16 04:39 Urine Ketones Negative (Negative) 08/23/16 04:39 Urine Blood Trace (Negative) H 08/23/16 04:39 Urine Nitrite Negative (Negative) 08/23/16 04:39 Urine Bilirubin Negative (Negative) 08/23/16 04:39 Urine Urobilinogen <2.0 mg/dL (<2.0) 08/23/16 04:39 Ur Leukocyte Esterase Negative (Negative) 08/23/16 04:39 Urine RBC 1 /hpf (0-5) 08/23/16 04:39 Urine WBC 1 /hpf (0-5) 08/23/16 04:39 Ur Squamous Epith Cells <1 /hpf (0-4) 08/23/16 04:39 Urine Bacteria Rare /hpf (None) H 08/23/16 04:39 Microbiology 08/23/16 04:03 Blood Blood Culture - Preliminary No Growth after 72 hours 08/23/16 04:39 Urine,Voided Urine Culture - Final Assessment and Plan (1) Cellulitis of female breast Narrative/Plan: 76-year-old female who has a remote history of left breast carcinoma status post lumpectomy, left axillary dissection followed by radiation and chemotherapy. His is some difficulties with intermittent bouts of left breast cellulitis. This time over she developed some erythema to her right breast. Despite a course of oral antibiotic therapy did not improve and then it spread to her left breast. Developed a fever to 102. Developed leukocytosis and discomfort. Because he presented to the hospital for failure of outpatient antibiotic therapy. Here she's been treated with nafcillin and vancomycin therapy. Her fever has improved but she still feels somewhat poorly. The breasts are still erythematous slightly swollen and tender. If this time would alter antibiotic therapy to daptomycin. This will give us a rapidly bacteriocidal treatment for potentially resistant pathogens. Nafcillin and vancomycin are discontinued. A couple doses of Toradol will be utilized and meloxicam is held with improvement of pain. Her creatinine is being monitored. Will expect improvement in the next 24-48 hours. Status: Acute (2) History of left breast cancer Status: Acute (3) Leukocytosis Status: Acute (4) Fever Status: Acute
[2016-08-27] MEDS: LEVOTHYROXINE 100 MCG TAB PO SCH (06:15)
[2016-08-27] MEDS: ASPIRIN 81 MG CHEW PO SCH (07:50)
[2016-08-27] MEDS: FERROUS SULFATE 325 MG TAB PO SCH ×2 (07:50→21:44)
[2016-08-27] MEDS: LISINOPRIL 10 MG TAB PO SCH ×2 (07:50→21:45)
[2016-08-27] MEDS: FUROSEMIDE 20 MG TAB PO SCH (07:50)
[2016-08-27] MEDS: PANTOPRAZOLE 40 MG TABLET PO SCH (07:50)
[2016-08-27] MEDS: POTASSIUM CHLORIDE ER 10 MEQ TAB.ER.PRT PO SCH ×2 (07:50→21:44)
[2016-08-27] MEDS: amLODIPine 10 MG TAB PO SCH (07:50)
[2016-08-27] MEDS: HEPARIN SODIUM,PORCINE 5,000 UNIT/ML 1 ML VIAL SQ SCH ×2 (07:51→21:44)
[2016-08-27] MEDS: ATORVASTATIN 10 MG TAB PO SCH (07:51)
[2016-08-27] MEDS: ATENOLOL 50 MG TAB PO SCH (07:51)
[2016-08-27 09:15] LABS: Calcium 8.8 mg/dL (8.4-10.2); Potassium 4.4 mmol/L (3.5-5.1); Total Bilirubin 0.5 mg/dL (0.2-1.3); Total Protein 5.7 g/dL (6.3-8.2)
[2016-08-27 09:53] LABS: Basophils % (A) 1 %; CH 25.2; CHCM 29.2; Eosinophils # (A) 0.2 k/uL (0-0.7); Eosinophils % (A) 4 %; HCT 28.1 % (34.0-46.0); HDW 2.97; HGB 8.3 gm/dL (11.4-16.0); Hypochromasia Marked; Luc # (Auto) 0.14; Luc % (Auto) 3; Lymphocytes # (A) 1.2 k/uL (1.0-4.8); Lymphocytes % (A) 24 %; MCH 25.8 pg (25.0-35.0); MCHC 29.7 g/dL (31.0-37.0); MCV 86.9 fL (80.0-100.0); Mean Platelet Volume 7.4; Monocytes # (A) 0.3 k/uL (0-1.0); Monocytes % (A) 6 %; Neutrophils # (A) 3.3 k/uL (1.3-7.7); Neutrophils % (A) 64 %; RBC 3.23 m/uL (3.80-5.40); RDW 15.8 % (11.5-15.5); WBC 5.2 k/uL (3.8-10.6); WBC (Perox) 5.42
[2016-08-27] MEDS ORDERED: DAPTOmycin 500 MG in SODIUM CHLORIDE 0.9% 50 ML IV SCH (12:00)
--- NOTE | 2016-08-27 12:50 | P.PN ---
Subjective This is a 76-year-old female who presented with redness and swelling of bilateral breasts. She is being treated for acute cellulitis. Dr. Mecrhant's adjusted antibiotics and has placed her on daptomycin. She reports a slight increase in redness up into the chest wall on the left side of her breast. Patient also reporting diarrhea she had about 3 watery stools. Stool for C. diff has been ordered. She also reported a nonproductive cough. Her fluids will be hep-locked. She denies any chest pain. Denies any nausea or vomiting. Denies any urinary symptoms. Objective - Vital Signs Vital signs: Vital Signs Temp 97.6 F 08/27/16 07:30 Pulse 53 L 08/27/16 10:37 Resp 16 08/27/16 10:37 BP 172/73 08/27/16 10:37 Pulse Ox 97 08/27/16 10:37 Intake & Output 08/26/16 08/27/16 08/27/16 18:59 06:59 18:59 Intake Total 50 740 Balance 50 740 Weight 79 kg Intake: Intake, IV Titration 50 Amount DAPTOmycin 500 mg In 50 Sodium Chloride 0.9% 50 ml @ 100 mls/hr IV Q24H [facility] Rx#:[id number] Oral 740 Other: Voiding Method Toilet Toilet Toilet # Voids 1 1 - Exam Breast exam patient's breasts are swollen and red bilaterally. There is slight improvement in the erythema into the chest wall on the left side HEENT head normocephalic and atraumatic Neck is supple no JVD no goiter no lymphadenopathy Chest is clear to auscultation no wheezing Cardiac exam reveals regular heart sounds no gallops no murmurs Abdomen is soft nontender no organomegaly Extremity exam reveals no edema - Labs CBC & Chem 7: 08/27/16 07:58 08/27/16 07:58 Labs: Abnormal Lab Results - Last 24 Hours (Table) 08/27/16 08/27/16 Range/Units 07:58 07:58 RBC 3.23 L (3.80-5.40) m/uL Hgb 8.3 L (11.4-16.0) gm/dL Hct 28.1 L (34.0-46.0) % MCHC 29.7 L (31.0-37.0) g/dL RDW 15.8 H (11.5-15.5) % Chloride 111 H (98-107) mmol/L Creatinine 1.09 H (0.52-1.04) mg/dL Total Protein 5.7 L (6.3-8.2) g/dL Albumin 2.9 L (3.5-5.0) g/dL Microbiology - Last 24 Hours (Table) 08/23/16 04:03 Blood Culture - Preliminary Blood No Growth after 96 hours Assessment and Plan Plan: 1. Bilateral breast cellulitis failed outpatient antibiotic treatment. Evaluated by infectious disease. Antibiotics switched to daptomycin. Continue to monitor. Continue with current pain control 2. Sepsis secondary to bilateral breast cellulitis. Improving 3. History of breast cancer of the left breast 25 years ago treated with radiation treatment 4. History of breast reduction about 15 years ago 5. Essential hypertension, not well controlled we will increase lisinopril dose to 10 mg twice daily 6. Acute kidney injury likely related to poor oral intake. Monitor closely. Slight improvement in creatinine to 1.27 continue with oral intake of fluids 7. Iron deficiency anemia: Hemoglobin 8.1. Start patient on ferrous sulfate 325 mg twice a day. Repeat labs in a.m. 8. Check stool for C. diff patient reporting diarrhea 9. Hep-Lock IV fluids patient complaining of cough GI prophylaxis Protonix and DVT prophylaxis subcu heparin
[2016-08-27] MEDS: DAPTOmycin 500 MG in SODIUM CHLORIDE 0.9% 50 ML IV SCH (15:24)
[2016-08-27] MEDS: ACETAMINOPHEN TAB 325 MG TAB PO PRN (17:11)
--- NOTE | 2016-08-27 21:22 | P.PN ---
Subjective Principal diagnosis: bilat breast cellulitis 76-year-old female who presents to Hospital with a several-day history of present discomfort to her right breast. Associated with increasing amounts of erythema. She had fever and chills occurred. The erythema crossed onto her left breast. The patient relates that in the past she's had more difficulties with her left breast with cellulitis. She has the somewhat remote history of a left breast carcinoma. She underwent a lumpectomy and axillary dissection at the time of her cancer. She was treated with radiation therapy and chemotherapy therapy. She relates in the years since that she's had an occasional bout of difficulty with her left breast. She relates that she did not search developed cellulitis events until she had a bilateral breast reduction. She does believe that this is the first time that the right breast has been in the first point of infection. She does relate that she is still having some discomfort. Fever has improved. The redness to the chest started to improve. There is much less tenderness and Left axillary tenderness is resolved. Patient now developed some shortness of breath improved this PM. Objective - Vital Signs Vital signs: Vital Signs Temp 97.2 F L 08/27/16 14:48 Pulse 53 L 08/27/16 15:36 Resp 16 08/27/16 15:36 BP 134/85 08/27/16 14:48 Pulse Ox 95 08/27/16 14:48 Intake & Output 08/27/16 08/27/16 08/28/16 06:59 18:59 06:59 Intake Total 740 480 Balance 740 480 Weight 79 kg Intake: Oral 740 480 Other: Voiding Method Toilet Toilet # Voids 1 4 # Bowel Movements 2 - Exam Pleasant 76-year-old woman who is mildly uncomfortable but not in distress HEENT: Anicteric conjunctiva are pink and moist nasal mucosa grossly intact without significant lesions, there is no thrush. Neck: The neck is supple without significant lymphadenopathy or thyromegaly. Lungs: Good bilateral air entry few basilar crackles no wheezing. There are no significant bronchial sounds. There is no egophony or dullness. Heart: Regular rate and rhythm with an audible S1-S2, no S3 no S4. There is no significant murmur click or rub, PMI was nondisplaced. Abdomen: Obese, Positive bowel sounds soft and nontender without palpable masses or organomegaly. There was no guarding or rebound. Extremities: The upper extremities have excellent pulses they are symmetric, no significant petechiae or telangiectasia. No splinter hemorrhages were noted. The lower extremities are free from significant edema. The peripheral pulses were 2+ and symmetric. Neuro: Awake alert oriented to person place and time. There are no acute new gross focal sensory motor deficits. Breasts: With the nurse present the patient is evaluated. There is evidence of the prior breast reduction. There is not extensive swelling to either breast. However there is dense erythema to both breasts. The left breast does have evidence of the prior surgery. And there is the woody texture to the breast since his radiation therapy. It however is not very tender. There isno left axillary tenderness. No other abnormal lymph nodes are noted. In the left arm has no evidence of any lymphedema or lymphangitis. The erythema has no spreading today, is improved. - Labs CBC & Chem 7: 08/27/16 07:58 08/27/16 07:58 Labs: Abnormal Lab Results - Last 24 Hours (Table) 08/27/16 08/27/16 Range/Units 07:58 07:58 RBC 3.23 L (3.80-5.40) m/uL Hgb 8.3 L (11.4-16.0) gm/dL Hct 28.1 L (34.0-46.0) % MCHC 29.7 L (31.0-37.0) g/dL RDW 15.8 H (11.5-15.5) % Chloride 111 H (98-107) mmol/L Creatinine 1.09 H (0.52-1.04) mg/dL Total Protein 5.7 L (6.3-8.2) g/dL Albumin 2.9 L (3.5-5.0) g/dL Microbiology - Last 24 Hours (Table) 08/23/16 04:03 Blood Culture - Preliminary Blood No Growth after 96 hours Assessment and Plan (1) Cellulitis of female breast Narrative/Plan: 76-year-old female who has a remote history of left breast carcinoma status post lumpectomy, left axillary dissection followed by radiation and chemotherapy. His is some difficulties with intermittent bouts of left breast cellulitis. This time over she developed some erythema to her right breast. Despite a course of oral antibiotic therapy did not improve and then it spread to her left breast. Developed a fever to 102. Developed leukocytosis and discomfort. Because he presented to the hospital for failure of outpatient antibiotic therapy. Here she's been treated with nafcillin and vancomycin therapy. Her fever has improved but some SOB. The breasts are improved less erythema and tenderness. antibiotic therapy with daptomycin. This will give us a rapidly bacteriocidal treatment for potentially resistant pathogens. Nafcillin and vancomycin are discontinued. A couple doses of Toradol were utilized and meloxicam is held with improvement of pain. Her creatinine is being monitored. Now improved. As improves will transition to oral cefuroxime for home therapy. Status: Acute (2) History of left breast cancer Status: Acute (3) Leukocytosis Status: Acute (4) Fever Status: Acute
[2016-08-28] MEDS: LEVOTHYROXINE 100 MCG TAB PO SCH (06:20)
[2016-08-28 07:49] VITALS: BP 149/96; RESP 20; TEMP 97.4
[2016-08-28] MEDS: ATORVASTATIN 10 MG TAB PO SCH (08:45)
[2016-08-28] MEDS: amLODIPine 10 MG TAB PO SCH (08:45)
[2016-08-28] MEDS: FUROSEMIDE 20 MG TAB PO SCH (08:45)
[2016-08-28] MEDS: POTASSIUM CHLORIDE ER 10 MEQ TAB.ER.PRT PO SCH (08:45)
[2016-08-28] MEDS: PANTOPRAZOLE 40 MG TABLET PO SCH (08:45)
[2016-08-28] MEDS: FERROUS SULFATE 325 MG TAB PO SCH (08:45)
[2016-08-28] MEDS: ATENOLOL 50 MG TAB PO SCH (08:46)
[2016-08-28] MEDS: ASPIRIN 81 MG CHEW PO SCH (08:46)
[2016-08-28] MEDS: HEPARIN SODIUM,PORCINE 5,000 UNIT/ML 1 ML VIAL SQ SCH (08:46)
[2016-08-28] MEDS: LISINOPRIL 10 MG TAB PO SCH (08:46)
[2016-08-28 09:09] LABS: Basophils % (A) 0 %; CH 25.3; CHCM 29.7; Eosinophils # (A) 0.3 k/uL (0-0.7); Eosinophils % (A) 7 %; HCT 31.4 % (34.0-46.0); HDW 3.02; HGB 9.5 gm/dL (11.4-16.0); Hypochromasia Marked; Luc % (Auto) 2; Lymphocytes # (A) 1.3 k/uL (1.0-4.8); Lymphocytes % (A) 28 %; MCH 25.8 pg (25.0-35.0); MCHC 30.1 g/dL (31.0-37.0); MCV 85.5 fL (80.0-100.0); Monocytes # (A) 0.2 k/uL (0-1.0); Monocytes % (A) 4 %; Neutrophils # (A) 2.7 k/uL (1.3-7.7); Neutrophils % (A) 59 %; RBC 3.67 m/uL (3.80-5.40); RDW 15.8 % (11.5-15.5); WBC 4.6 k/uL (3.8-10.6); WBC (Perox) 4.57
[2016-08-28 09:48] LABS: Calcium 9.1 mg/dL (8.4-10.2); Potassium 4.1 mmol/L (3.5-5.1); Total Bilirubin 0.5 mg/dL (0.2-1.3); Total Protein 6.3 g/dL (6.3-8.2)
[2016-08-28 10:49] VITALS: PULSE 60
--- NOTE | 2016-08-28 12:26 | P.DS ---
Providers Date of admission: 08/23/16 05:25 Expected date of discharge: 08/28/16 Attending physician: Mayda Moya Consults: 08/23/16 10:21 Consult Physician Urgent Consulting Provider: Christianne Yee Consult Reason/Comments: Periodic recommendations cellulitis breast Do you want consulting provider notified?: Yes Dr. Merchant Primary care physician: [facility] Course: Discharge diagnosis 1. Bilateral breast cellulitis failed outpatient antibiotic treatment. Evaluated by infectious disease. Patient be discharged with Ceftin for 14 days 2. Sepsis secondary to bilateral breast cellulitis. Improving 3. History of breast cancer of the left breast 25 years ago treated with radiation treatment 4. History of breast reduction about 15 years ago 5. Essential hypertension 6. Acute kidney injury likely related to poor oral intake. Monitor closely. Creatinine at discharge is 1.12 improved with fluids and increasing her oral intake 7. Iron deficiency anemia: Hemoglobin 8.1. Start patient on ferrous sulfate 325 mg twice a day. Repeat labs in a.m. Hospital course This is a 76-year-old female who presented with redness and swelling of the bilateral breasts. She's was treated for an acute cellulitis. Started on IV antibiotics and was evaluated by infectious disease. He did treat her with daptomycin. In the recommending to switch patient over to Ceftin at the time of discharge for 14 days. Patient did fail outpatient antibiotic treatment. Her symptoms have improved greatly. And she is stable for discharge. She did have evidence of iron deficiency anemia was started on ferrous sulfate. Hemoglobin at discharge is 9.5. Patient also had evidence of some acute kidney injury creatinine as high as 1.30. At discharge creatinine is 1.12. Her kidney function did improve with IV fluids. Recommend to monitor his in the outpatient setting. Her actual baseline creatinine is unknown. On admission creatinine was 1.10. We will have her check a CBC and BMP in 1 week when she follows up with her PCP. Patient Condition at Discharge: Stable Plan - Discharge Summary New Discharge Prescriptions: Cefuroxime Axetil [Cefuroxime] 500 mg PO BID #14 tab Ferrous Sulfate [Iron (65 MG Elemental)] 325 mg PO BID #60 tab Discharge Medication List Acetaminophen [Tylenol Arthritis] 1,300 mg PO DAILY 08/23/16 [History] Aspirin 81 mg PO DAILY 08/23/16 [History] Atenolol 100 mg PO DAILY 08/23/16 [History] Celecoxib [CeleBREX] 200 mg PO DAILY 08/23/16 [History] Diclofenac Sodium [Voltaren Gel] 1 applic TOPICAL Q6H PRN 08/23/16 [History] Fexofenadine HCl [Anali Allergy] 180 mg PO DAILY 08/23/16 [History] Furosemide [Lasix] 20 mg PO DAILY 08/23/16 [History] Levothyroxine Sodium [Tirosint] 100 mcg PO DAILY 08/23/16 [History] Lisinopril [Zestril] 10 mg PO DAILY 08/23/16 [History] Omeprazole 20 mg PO DAILY PRN 08/23/16 [History] Potassium Chloride [Klor-Con 10] 10 meq PO BID 08/23/16 [History] Simvastatin [Zocor] 20 mg PO DAILY@1200 08/23/16 [History] amLODIPine BESYLATE [Norvasc] 10 mg PO DAILY 08/23/16 [History] rOPINIRole HCL 1 mg PO HS 08/23/16 [History] rOPINIRole HCL [Requip] 0.5 mg PO DAILY PRN 08/23/16 [History] Cefuroxime Axetil [Cefuroxime] 500 mg PO BID #14 tab 08/28/16 [Rx] Ferrous Sulfate [Iron (65 MG Elemental)] 325 mg PO BID #60 tab 08/28/16 [Rx] Follow up Appointment(s)/Referral(s): Marta Burgess DO [Primary Care Provider] - 1 Week Activity/Diet/Wound Care/Special Instructions: Diet: cardiac Activity: as tolerated Check CBC, BMP in 1 week Discharge Disposition: HOME SELF-CARE
[2016-08-28] MEDS: DAPTOmycin 500 MG in SODIUM CHLORIDE 0.9% 50 ML IV SCH (12:59)
[2016-08-28] MEDS: ACETAMINOPHEN TAB 325 MG TAB PO PRN (13:03)
--- NOTE | 2016-08-28 20:44 | P.PN ---
Subjective Principal diagnosis: bilat breast cellulitis 76-year-old female who presents to Hospital with a several-day history of present discomfort to her right breast. Associated with increasing amounts of erythema. She had fever and chills occurred. The erythema crossed onto her left breast. The patient relates that in the past she's had more difficulties with her left breast with cellulitis. She has the somewhat remote history of a left breast carcinoma. She underwent a lumpectomy and axillary dissection at the time of her cancer. She was treated with radiation therapy and chemotherapy therapy. She relates in the years since that she's had an occasional bout of difficulty with her left breast. She relates that she did not search developed cellulitis events until she had a bilateral breast reduction. She does believe that this is the first time that the right breast has been in the first point of infection. She does relate that she is still having some discomfort. Fever has improved. The redness to the chest started to improve. There is much less tenderness and Left axillary tenderness is resolved. Feeling better today Objective - Vital Signs Vital signs: Vital Signs Temp 97.4 F L 08/28/16 07:00 Pulse 60 08/28/16 08:00 Resp 20 08/28/16 08:00 BP 149/96 08/28/16 07:00 Pulse Ox 97 08/28/16 07:00 Intake & Output 08/28/16 08/28/16 08/29/16 06:59 18:59 06:59 Intake Total 790 340 Balance 790 340 Weight 79 kg Intake: Intake, IV Titration 100 Amount DAPTOmycin 500 mg In 100 Sodium Chloride 0.9% 50 ml @ 100 mls/hr IV Q24H [facility] Rx#:[id number] Oral 790 240 Other: Voiding Method Toilet Toilet # Voids 2 2 - Exam Pleasant 76-year-old woman who is mildly uncomfortable but not in distress HEENT: Anicteric conjunctiva are pink and moist nasal mucosa grossly intact without significant lesions, there is no thrush. Neck: The neck is supple without significant lymphadenopathy or thyromegaly. Lungs: Good bilateral air entry few basilar crackles no wheezing. There are no significant bronchial sounds. There is no egophony or dullness. Heart: Regular rate and rhythm with an audible S1-S2, no S3 no S4. There is no significant murmur click or rub, PMI was nondisplaced. Abdomen: Obese, Positive bowel sounds soft and nontender without palpable masses or organomegaly. There was no guarding or rebound. Extremities: The upper extremities have excellent pulses they are symmetric, no significant petechiae or telangiectasia. No splinter hemorrhages were noted. The lower extremities are free from significant edema. The peripheral pulses were 2+ and symmetric. Neuro: Awake alert oriented to person place and time. There are no acute new gross focal sensory motor deficits. Breasts: With the nurse present the patient is evaluated. There is evidence of the prior breast reduction. There is not extensive swelling to either breast. However there is dense erythema to both breasts. The left breast does have evidence of the prior surgery. And there is the woody texture to the breast since his radiation therapy. It however is not very tender. There is no left axillary tenderness. No other abnormal lymph nodes are noted. In the left arm has no evidence of any lymphedema or lymphangitis. The erythema has no spreading today, is improved. - Labs CBC & Chem 7: 08/28/16 08:32 08/28/16 08:32 Labs: Abnormal Lab Results - Last 24 Hours (Table) 08/28/16 08/28/16 Range/Units 08:32 08:32 RBC 3.67 L (3.80-5.40) m/uL Hgb 9.5 L (11.4-16.0) gm/dL Hct 31.4 L (34.0-46.0) % MCHC 30.1 L (31.0-37.0) g/dL RDW 15.8 H (11.5-15.5) % Chloride 110 H (98-107) mmol/L Creatinine 1.12 H (0.52-1.04) mg/dL Glucose 121 H (74-99) mg/dL Albumin 3.3 L (3.5-5.0) g/dL Microbiology - Last 24 Hours (Table) 08/23/16 04:03 Blood Culture - Preliminary Blood No Growth after 120 hours Laboratory Results WBC 4.6 k/uL (3.8-10.6) 08/28/16 08:32 RBC 3.67 m/uL (3.80-5.40) L 08/28/16 08:32 Hgb 9.5 gm/dL (11.4-16.0) L 08/28/16 08:32 Hct 31.4 % (34.0-46.0) L 08/28/16 08:32 MCV 85.5 fL (80.0-100.0) 08/28/16 08:32 MCH 25.8 pg (25.0-35.0) 08/28/16 08:32 MCHC 30.1 g/dL (31.0-37.0) L 08/28/16 08:32 RDW 15.8 % (11.5-15.5) H 08/28/16 08:32 Plt Count 226 k/uL (150-450) 08/28/16 08:32 Neutrophils % 59 % 08/28/16 08:32 Lymphocytes % 28 % 08/28/16 08:32 Monocytes % 4 % 08/28/16 08:32 Eosinophils % 7 % 08/28/16 08:32 Basophils % 0 % 08/28/16 08:32 Neutrophils # 2.7 k/uL (1.3-7.7) 08/28/16 08:32 Lymphocytes # 1.3 k/uL (1.0-4.8) 08/28/16 08:32 Monocytes # 0.2 k/uL (0-1.0) 08/28/16 08:32 Eosinophils # 0.3 k/uL (0-0.7) 08/28/16 08:32 Basophils # 0.0 k/uL (0-0.2) 08/28/16 08:32 Hypochromasia Marked 08/28/16 08:32 PT 10.0 sec (9.0-12.0) 08/23/16 04:03 INR 1.0 (<1.1) 08/23/16 04:03 APTT 21.5 sec (22.0-30.0) L 08/23/16 04:03 Sodium 141 mmol/L (137-145) 08/28/16 08:32 Potassium 4.1 mmol/L (3.5-5.1) 08/28/16 08:32 Chloride 110 mmol/L (98-107) H 08/28/16 08:32 Carbon Dioxide 23 mmol/L (22-30) 08/28/16 08:32 Anion Gap 8 mmol/L 08/28/16 08:32 BUN 16 mg/dL (7-17) 08/28/16 08:32 Creatinine 1.12 mg/dL (0.52-1.04) H 08/28/16 08:32 Est GFR (MDRD) Af Amer 57 (>60 ml/min/1.73 sqM) 08/28/16 08:32 Est GFR (MDRD) Non-Af 47 (>60 ml/min/1.73 sqM) 08/28/16 08:32 Glucose 121 mg/dL (74-99) H 08/28/16 08:32 Plasma Lactic Acid Jovani 1.6 mmol/L (0.7-2.0) 08/23/16 04:03 Calcium 9.1 mg/dL (8.4-10.2) 08/28/16 08:32 Iron 12 ug/dL (37-170) L 08/25/16 07:30 TIBC 284 ug/dL (265-497) 08/25/16 07:30 % Saturation 4.2 % (20-50) L 08/25/16 07:30 Ferritin 24 ng/mL (11-264) 08/25/16 07:30 Total Bilirubin 0.5 mg/dL (0.2-1.3) 08/28/16 08:32 AST 17 U/L (14-36) 08/28/16 08:32 ALT 21 U/L (9-52) 08/28/16 08:32 Alkaline Phosphatase 81 U/L (38-126) 08/28/16 08:32 Total Protein 6.3 g/dL (6.3-8.2) 08/28/16 08:32 Albumin 3.3 g/dL (3.5-5.0) L 08/28/16 08:32 Urine Color Light Yellow 08/23/16 04:39 Urine Appearance Clear (Clear) 08/23/16 04:39 Urine pH 5.0 (5.0-8.0) 08/23/16 04:39 Ur Specific [place] 1.009 (1.001-1.035) 08/23/16 04:39 Urine Protein Negative (Negative) 08/23/16 04:39 Urine Glucose (UA) Negative (Negative) 08/23/16 04:39 Urine Ketones Negative (Negative) 08/23/16 04:39 Urine Blood Trace (Negative) H 08/23/16 04:39 Urine Nitrite Negative (Negative) 08/23/16 04:39 Urine Bilirubin Negative (Negative) 08/23/16 04:39 Urine Urobilinogen <2.0 mg/dL (<2.0) 08/23/16 04:39 Ur Leukocyte Esterase Negative (Negative) 08/23/16 04:39 Urine RBC 1 /hpf (0-5) 08/23/16 04:39 Urine WBC 1 /hpf (0-5) 08/23/16 04:39 Ur Squamous Epith Cells <1 /hpf (0-4) 08/23/16 04:39 Urine Bacteria Rare /hpf (None) H 08/23/16 04:39 Microbiology 08/23/16 04:03 Blood Blood Culture - Preliminary No Growth after 120 hours 08/23/16 04:39 Urine,Voided Urine Culture - Final Assessment and Plan (1) Cellulitis of female breast Narrative/Plan: 76-year-old female who has a remote history of left breast carcinoma status post lumpectomy, left axillary dissection followed by radiation and chemotherapy. His is some difficulties with intermittent bouts of left breast cellulitis. This time over she developed some erythema to her right breast. Despite a course of oral antibiotic therapy did not improve and then it spread to her left breast. Developed a fever to 102. Developed leukocytosis and discomfort. Because he presented to the hospital for failure of outpatient antibiotic therapy. Here she's been treated with nafcillin and vancomycin therapy. Her fever has improved but some SOB. The breasts are improved less erythema and tenderness. antibiotic therapy with daptomycin. This will give us a rapidly bacteriocidal treatment for potentially resistant pathogens. Nafcillin and vancomycin are discontinued. A couple doses of Toradol were utilized and meloxicam is held with improvement of pain. Her creatinine is being monitored. Now improved. Since improved will transition to oral cefuroxime for home therapy. Status: Acute (2) History of left breast cancer Status: Acute (3) Leukocytosis Status: Acute (4) Fever Status: Acute
== END 2016-08-28 15:05 | disposition home or self-care (01) | DRG 872 ==
LOC: EC 03:33 → 5MS5E 05:25 → 5ONC 17:57
PROVIDERS: ADMIT Internal Medicine; ATTEND Internal Medicine
DX: A41.9 Sepsis, unspecified organism (principal); N17.9 Acute kidney failure, unspecified; I10 Essential (primary) hypertension; N61.0 Mastitis without abscess; K21.9 Gastro-esophageal reflux disease without esophagitis; E78.5 Hyperlipidemia, unspecified; D50.9 Iron deficiency anemia, unspecified; E07.9 Disorder of thyroid, unspecified; M19.91 Primary osteoarthritis, unspecified site; Z87.891 Personal history of nicotine dependence; Z85.3 Personal history of malignant neoplasm of breast; Z92.3 Personal history of irradiation; Z92.21 Personal history of antineoplastic chemotherapy; Z90.49 Acquired absence of other specified parts of digestive tract; Z79.82 Long term (current) use of aspirin; Z79.1 Long term (current) use of non-steroidal anti-inflammatories (NSAID); Z79.899 Other long term (current) drug therapy
CPT/HCPCS: 36415; 71010; 80053; 81001; 82728; 83540; 83550; 83605; 85025; 85610; 85730; 87040; 87086; 93005

== ENCOUNTER 2016-10-22 19:21 | Emergency (ER) | payer MEDICARE, BC ==
[2016-10-22 19:26] VITALS: BP 153/67; PULSE 59; RESP 18; TEMP 98.1
--- NOTE | 2016-10-22 19:56 | ED ---
Wound/Laceration HPI - General Chief Complaint: Wound/Laceration Stated Complaint: L leg laceration Time Seen by Provider: 10/22/16 19:38 Source: patient, family, RN notes reviewed Mode of arrival: ambulatory Limitations: no limitations - History of Present Illness Initial Comments: Patient is 76-year-old female presents to the emergency room for evaluation of left lower leg laceration. Patient states she was opening her car door and sliced her left anterior mercedes area. Patient denies taking blood thinners. Patient states she is up-to-date on her tetanus vaccine. Patient states having a burning pain at the laceration area. Patient denies any other injuries during incident. - Related Data Home Medications Medication Instructions Recorded Confirmed Acetaminophen [Tylenol Arthritis] 1,300 mg PO DAILY 08/23/16 10/22/16 Aspirin 81 mg PO DAILY 08/23/16 10/22/16 Atenolol 100 mg PO DAILY 08/23/16 10/22/16 Celecoxib [CeleBREX] 200 mg PO DAILY 08/23/16 10/22/16 Diclofenac Sodium [Voltaren Gel] 1 applic TOPICAL Q6H PRN 08/23/16 10/22/16 Fexofenadine HCl [Anali Allergy] 180 mg PO DAILY 08/23/16 10/22/16 Furosemide [Lasix] 20 mg PO DAILY 08/23/16 10/22/16 Levothyroxine Sodium [Tirosint] 100 mcg PO DAILY 08/23/16 10/22/16 Lisinopril [Zestril] 10 mg PO DAILY 08/23/16 10/22/16 Omeprazole 20 mg PO DAILY PRN 08/23/16 10/22/16 Potassium Chloride [Klor-Con 10] 10 meq PO BID 08/23/16 10/22/16 Simvastatin [Zocor] 20 mg PO DAILY@1200 08/23/16 10/22/16 amLODIPine BESYLATE [Norvasc] 10 mg PO DAILY 08/23/16 10/22/16 rOPINIRole HCL 1 mg PO HS 08/23/16 10/22/16 rOPINIRole HCL [Requip] 0.5 mg PO DAILY PRN 08/23/16 10/22/16 Previous Rx's Medication Instructions Recorded Cefuroxime Axetil [Cefuroxime] 500 mg PO BID #14 tab 08/28/16 Ferrous Sulfate [Iron (65 MG 325 mg PO BID #60 tab 08/28/16 Elemental)] Allergies Allergy/AdvReac Type Severity Reaction Status Date / Time meperidine [From Demerol] AdvReac Nausea & Verified 10/22/16 19:26 Vomiting Review of Systems ROS Statement: Those systems with pertinent positive or pertinent negative responses have been documented in the HPI. ROS Other: All systems not noted in ROS Statement are negative. Past Medical History Past Medical History: Cancer, GERD/Reflux, Hyperlipidemia, Hypertension, Osteoarthritis (OA), Thyroid Disorder Additional Past Medical History / Comment(s): bilat breast CA "25 yrs ago" History of Any Multi-Drug Resistant Organisms: None Reported Past Surgical History: Appendectomy, Section, Orthopedic Surgery Additional Past Surgical History / Comment(s): portion of left breast and right breast removed, c- sect x 4, "tailbone removed" Past Psychological History: No Psychological Hx Reported Smoking Status: Never smoker Past Alcohol Use History: None Reported Past Drug Use History: None Reported - Past Family History Sister(s) Family Medical History: Cancer Additional Family Medical History / Comment(s): Patient's sister had leukemia Brother(s) Family Medical History: Coronary Artery Disease (CAD) General Exam - General Exam Comments Initial Comments: Sitting in exam room in no acute distress. Limitations: no limitations General appearance: alert, in no apparent distress Head exam: Present: atraumatic, normocephalic, normal inspection Eye exam: Present: normal appearance ENT exam: Present: normal exam Neck exam: Present: normal inspection Respiratory exam: Absent: respiratory distress Left Hip exam: Present: normal inspection Upper Leg exam: Present: normal inspection Knee exam: Present: normal inspection Lower Leg exam: Present: laceration (3 inch V-shaped laceration on mid-anterior mercedes) Ankle exam: Present: normal inspection Foot/Toe exam: Present: normal inspection Neurovascular tendon exam: Present: no vascular compromise. Absent: pulse deficit (2+ dorsal pedal and posterior tibial pulses), abnormal cap refill ( Capillary refill less than 2 seconds) Back exam: Present: normal inspection Neurological exam: Present: alert, oriented X3, CN II-XII intact, normal gait Psychiatric exam: Present: normal affect, normal mood Skin exam: Present: warm, dry. Absent: rash Course Vital Signs 10/22/16 19:22 Temperature 98.1 F Pulse Rate 59 L Respiratory 18 Rate Blood Pressure 153/67 O2 Sat by Pulse 98 Oximetry Procedures - Laceration Laceration #1 Consent Obtained: verbal consent Indication: laceration Site: other (left anterior mid mercedes) Size (cm): 5 Description: flap Depth: simple, single layer Anesthetic Used: lidocaine 1% Anesthesia Technique: local infiltration Amount (mls): 6 Pre-repair: wound explored, irrigated extensively Type of Sutures: nylon Size of Sutures: 5-0 Number of Sutures: 10 Technique: simple, interrupted Complications: pain, bleeding Medical Decision Making - Medical Decision Making Patient is 76-year-old female presents to the emergency room for evaluation of chin laceration. Laceration repaired with sutures. Patient handled procedure well. Advised patient to return in 7-10 days for suture removal. Patient states she understands everything that was discussed with her. Return parameters discussed. Disposition Clinical Impression: Laceration of left leg Disposition: HOME SELF-CARE Condition: Good Instructions: Care For Your Stitches (ED), Laceration (ED) Additional Instructions: Do not soak suture area in water. Clean suture area with a damp cloth. Please return in 7-10 days for suture removal. Take Tylenol or Motrin as needed for pain. If any new symptom arises or symptoms worsen, return to ER as soon as possible. Referrals: Marta Burgess DO [Primary Care Provider] - 1-2 days Time of Disposition: 20:35
== END 2016-10-22 20:47 | disposition home or self-care (01) ==
LOC: EC 19:21
DX: S81.812A Laceration without foreign body, left lower leg, initial encounter (principal); K21.9 Gastro-esophageal reflux disease without esophagitis; E78.5 Hyperlipidemia, unspecified; I10 Essential (primary) hypertension; E07.9 Disorder of thyroid, unspecified; M19.90 Unspecified osteoarthritis, unspecified site; Z79.82 Long term (current) use of aspirin; Z79.891 Long term (current) use of opiate analgesic; Z79.899 Other long term (current) drug therapy; Z88.5 Allergy status to narcotic agent; Z85.3 Personal history of malignant neoplasm of breast; W45.8XXA Other foreign body or object entering through skin, initial encounter; Y93.89 Activity, other specified
CPT/HCPCS: 12002; 99282

== ENCOUNTER 2016-10-29 12:03 | Emergency (ER) | payer MEDICARE, BC ==
[2016-10-29] MEDS ORDERED: IPRATROPIUM-ALBUTEROL 3 ML NEB INHALATION STA (12:34)
[2016-10-29] MEDS ORDERED: SODIUM CHLORIDE 0.9% 500 ML IV STA (12:34)
[2016-10-29] MEDS ORDERED: SODIUM CHLORIDE 0.9% 1,000 ML IV STA (12:34)
[2016-10-29 12:53] LABS: Basophils % (A) 0 %; CH 27.9; Eosinophils # (A) 0.1 k/uL (0-0.7); Eosinophils % (A) 2 %; HCT 37.4 % (34.0-46.0); HDW 2.84; HGB 12.2 gm/dL (11.4-16.0); Hypochromasia Slight; Luc # (Auto) 0.19; Luc % (Auto) 3; Lymphocytes % (A) 36 %; MCH 28.4 pg (25.0-35.0); MCHC 32.6 g/dL (31.0-37.0); MCV 87.3 fL (80.0-100.0); Mean Platelet Volume 7.7; Monocytes # (A) 0.3 k/uL (0-1.0); Monocytes % (A) 5 %; Neutrophils # (A) 2.9 k/uL (1.3-7.7); Neutrophils % (A) 52 %; RBC 4.29 m/uL (3.80-5.40); RDW 14.4 % (11.5-15.5); WBC 5.5 k/uL (3.8-10.6)
--- NOTE | 2016-10-29 12:59 | ED ---
General Adult HPI - General Chief complaint: Shortness of Breath Stated complaint: SOB/Anxiety Time Seen by Provider: 10/29/16 12:10 Source: EMS, RN notes reviewed, old records reviewed Mode of arrival: EMS Limitations: no limitations - History of Present Illness Initial comments: This is a 68-year-old female to the ER for evaluation today. Today's this patient presents to ER for evaluation regarding shortness of breath. Patient states she was doing some activity today and became severely short of breath, she uses oxygen but did not help. She usually uses oxygen all taking showers or doing any real exertional episodes. But is unsure what the cause of her underlying shortness of breath or difficulty breathing is. Denies chest pain. No travel history or sick contacts pain. No recent fevers cough or congestion. Patient states last night and today she was feeling fine until she decided to vacuum the house - Related Data Home Medications Medication Instructions Recorded Confirmed Acetaminophen [Tylenol Arthritis] 1,300 mg PO DAILY 08/23/16 10/29/16 Aspirin 81 mg PO DAILY 08/23/16 10/29/16 Atenolol 100 mg PO DAILY 08/23/16 10/29/16 Celecoxib [CeleBREX] 200 mg PO DAILY 08/23/16 10/29/16 Diclofenac Sodium [Voltaren Gel] 1 applic TOPICAL Q6H PRN 08/23/16 10/29/16 Fexofenadine HCl [Anali Allergy] 180 mg PO DAILY 08/23/16 10/29/16 Furosemide [Lasix] 20 mg PO DAILY 08/23/16 10/29/16 Levothyroxine Sodium [Tirosint] 100 mcg PO DAILY 08/23/16 10/29/16 Lisinopril [Zestril] 10 mg PO DAILY 08/23/16 10/29/16 Omeprazole 20 mg PO DAILY PRN 08/23/16 10/29/16 Potassium Chloride [Klor-Con 10] 10 meq PO BID 08/23/16 10/29/16 Simvastatin [Zocor] 20 mg PO DAILY@1200 08/23/16 10/29/16 amLODIPine BESYLATE [Norvasc] 10 mg PO DAILY 08/23/16 10/29/16 rOPINIRole HCL 1 mg PO HS 08/23/16 10/29/16 rOPINIRole HCL [Requip] 0.5 mg PO DAILY PRN 08/23/16 10/29/16 Previous Rx's Medication Instructions Recorded Cefuroxime Axetil [Cefuroxime] 500 mg PO BID #14 tab 08/28/16 Ferrous Sulfate [Iron (65 MG 325 mg PO BID #60 tab 08/28/16 Elemental)] Allergies Allergy/AdvReac Type Severity Reaction Status Date / Time meperidine [From Demerol] AdvReac Nausea & Verified 10/29/16 12:54 Vomiting Review of Systems ROS Statement: Those systems with pertinent positive or pertinent negative responses have been documented in the HPI. ROS Other: All systems not noted in ROS Statement are negative. Past Medical History Past Medical History: Cancer, GERD/Reflux, Hyperlipidemia, Hypertension, Osteoarthritis (OA), Thyroid Disorder Additional Past Medical History / Comment(s): bilat breast CA "25 yrs ago" History of Any Multi-Drug Resistant Organisms: None Reported Past Surgical History: Appendectomy, Section, Orthopedic Surgery Additional Past Surgical History / Comment(s): portion of left breast and right breast removed, c- sect x 4, "tailbone removed" Past Psychological History: No Psychological Hx Reported Smoking Status: Never smoker Past Alcohol Use History: None Reported Past Drug Use History: None Reported - Past Family History Sister(s) Family Medical History: Cancer Additional Family Medical History / Comment(s): Patient's sister had leukemia Brother(s) Family Medical History: Coronary Artery Disease (CAD) General Exam Limitations: no limitations General appearance: alert, anxious, in distress Head exam: Present: atraumatic, normocephalic, normal inspection Eye exam: Present: normal appearance, PERRL, EOMI. Absent: scleral icterus, conjunctival injection, periorbital swelling ENT exam: Present: normal exam, mucous membranes moist Neck exam: Present: normal inspection. Absent: tenderness, meningismus, lymphadenopathy Respiratory exam: Present: normal lung sounds bilaterally. Absent: respiratory distress, wheezes, rales, rhonchi, stridor Cardiovascular Exam: Present: regular rate, normal rhythm, normal heart sounds. Absent: systolic murmur, diastolic murmur, rubs, gallop, clicks GI/Abdominal exam: Present: soft, normal bowel sounds. Absent: distended, tenderness, guarding, rebound, rigid Extremities exam: Present: normal inspection, full ROM, normal capillary refill. Absent: tenderness, pedal edema, joint swelling, calf tenderness Back exam: Present: normal inspection Neurological exam: Present: alert, oriented X3, CN II-XII intact Psychiatric exam: Present: normal affect, normal mood Skin exam: Present: warm, dry, intact, normal color. Absent: rash Course Vital Signs 10/29/16 10/29/16 10/29/16 12:06 12:44 12:58 Temperature 97.1 F L Pulse Rate 54 L 54 L 67 Respiratory 18 18 Rate Blood Pressure 186/84 O2 Sat by Pulse 100 Oximetry 10/29/16 10/29/16 10/29/16 13:06 14:47 15:19 Temperature 97.3 F L Pulse Rate 69 61 62 Respiratory 18 16 20 Rate Blood Pressure 167/80 156/69 164/77 O2 Sat by Pulse 98 96 96 Oximetry EKG Findings - EKG Comments: EKG Findings:: EKG shows sinus bradycardia rate of 51, [place] 172, QRS 70, QTC 418 Medical Decision Making - Lab Data Result diagrams: 10/29/16 12:26 10/29/16 12:26 Lab Results 10/29/16 10/29/16 10/29/16 Range/Units 12:26 12:26 12:26 WBC 5.5 (3.8-10.6) k/uL RBC 4.29 (3.80-5.40) m/uL Hgb 12.2 (11.4-16.0) gm/dL Hct 37.4 (34.0-46.0) % MCV 87.3 (80.0-100.0) fL MCH 28.4 (25.0-35.0) pg MCHC 32.6 (31.0-37.0) g/dL RDW 14.4 (11.5-15.5) % Plt Count 209 (150-450) k/uL Neutrophils % 52 % Lymphocytes % 36 % Monocytes % 5 % Eosinophils % 2 % Basophils % 0 % Neutrophils # 2.9 (1.3-7.7) k/uL Lymphocytes # 2.0 (1.0-4.8) k/uL Monocytes # 0.3 (0-1.0) k/uL Eosinophils # 0.1 (0-0.7) k/uL Basophils # 0.0 (0-0.2) k/uL Hypochromasia Slight PT (9.0-12.0) sec INR (<1.2) APTT (22.0-30.0) sec D-Dimer (<0.60) mg/L FEU Sodium 139 (137-145) mmol/L Potassium 4.6 (3.5-5.1) mmol/L Chloride 107 (98-107) mmol/L Carbon Dioxide 23 (22-30) mmol/L Anion Gap 9 mmol/L BUN 19 H (7-17) mg/dL Creatinine 1.34 H (0.52-1.04) mg/dL Est GFR (MDRD) Af Amer 46 (>60 ml/min/1.73 sqM) Est GFR (MDRD) Non-Af 38 (>60 ml/min/1.73 sqM) Glucose 88 (74-99) mg/dL Calcium 9.4 (8.4-10.2) mg/dL Magnesium 1.8 (1.6-2.3) mg/dL Total Bilirubin 0.4 (0.2-1.3) mg/dL AST 19 (14-36) U/L ALT 26 (9-52) U/L Alkaline Phosphatase 90 (38-126) U/L Total Creatine Kinase 46 (30-135) U/L CK-MB (CK-2) 0.4 (0.0-2.4) ng/mL CK-MB (CK-2) Rel Index 0.9 Troponin I <0.012 (0.000-0.034) ng/mL NT-Pro-B Natriuret Pep pg/mL Total Protein 6.4 (6.3-8.2) g/dL Albumin 3.8 (3.5-5.0) g/dL 10/29/16 10/29/16 Range/Units 12:26 12:26 WBC (3.8-10.6) k/uL RBC (3.80-5.40) m/uL Hgb (11.4-16.0) gm/dL Hct (34.0-46.0) % MCV (80.0-100.0) fL MCH (25.0-35.0) pg MCHC (31.0-37.0) g/dL RDW (11.5-15.5) % Plt Count (150-450) k/uL Neutrophils % % Lymphocytes % % Monocytes % % Eosinophils % % Basophils % % Neutrophils # (1.3-7.7) k/uL Lymphocytes # (1.0-4.8) k/uL Monocytes # (0-1.0) k/uL Eosinophils # (0-0.7) k/uL Basophils # (0-0.2) k/uL Hypochromasia PT 10.0 (9.0-12.0) sec INR 1.0 (<1.2) APTT 21.3 L (22.0-30.0) sec D-Dimer 0.73 H (<0.60) mg/L FEU Sodium (137-145) mmol/L Potassium (3.5-5.1) mmol/L Chloride (98-107) mmol/L Carbon Dioxide (22-30) mmol/L Anion Gap mmol/L BUN (7-17) mg/dL Creatinine (0.52-1.04) mg/dL Est GFR (MDRD) Af Amer (>60 ml/min/1.73 sqM) Est GFR (MDRD) Non-Af (>60 ml/min/1.73 sqM) Glucose (74-99) mg/dL Calcium (8.4-10.2) mg/dL Magnesium (1.6-2.3) mg/dL Total Bilirubin (0.2-1.3) mg/dL AST (14-36) U/L ALT (9-52) U/L Alkaline Phosphatase (38-126) U/L Total Creatine Kinase (30-135) U/L CK-MB (CK-2) (0.0-2.4) ng/mL CK-MB (CK-2) Rel Index Troponin I (0.000-0.034) ng/mL NT-Pro-B Natriuret Pep 1620 pg/mL Total Protein (6.3-8.2) g/dL Albumin (3.5-5.0) g/dL Disposition Clinical Impression: Anxiety Disposition: HOME SELF-CARE Condition: Good Instructions: Bronchospasm (ED), Anxiety (ED) Referrals: Marta Burgess DO [Primary Care Provider] - 1-2 days
[2016-10-29 13:06] LABS: Calcium 9.4 mg/dL (8.4-10.2); Magnesium 1.8 mg/dL (1.6-2.3); Potassium 4.6 mmol/L (3.5-5.1); Total Bilirubin 0.4 mg/dL (0.2-1.3); Total Protein 6.4 g/dL (6.3-8.2)
[2016-10-29 13:18] LABS: Partial Thromboplastin Time 21.3 sec (22.0-30.0)
--- NOTE | 2016-10-29 13:22 | XR ---
EXAMINATION TYPE: XR chest 2V DATE OF EXAM: 10/29/2016 COMPARISON: Prior chest x-ray 08/23/2016 HISTORY: Difficulty breathing, weakness and shortness of breath TECHNIQUE: Frontal and lateral views of the chest are obtained. FINDINGS: There is no focal air space opacity, pleural effusion, or pneumothorax seen. The cardiac silhouette size is stable. There are overlying cardiac leads. Postop changes in the left axilla are stable. The osseous structures are intact. IMPRESSION: No acute cardiopulmonary process.
[2016-10-29 13:31] LABS: Creatine Kinase 46 U/L (30-135)
[2016-10-29 13:44] LABS: Creatine Kinase MB 0.4 ng/mL (0.0-2.4); Troponin I <0.012 ng/mL (0.000-0.034)
[2016-10-29] MEDS ORDERED: RX INFO: IV CONTRAST WAS GIVEN 1 EACH MISC MISCELLANE PRN (14:12)
[2016-10-29] MEDS ORDERED: LORazepam 2 MG/ML SYRINGE IV STA (15:10)
--- NOTE | 2016-10-29 15:54 | CT ---
EXAMINATION TYPE: CT angio chest DATE OF EXAM: 10/29/2016 COMPARISON: NONE HISTORY: Shortness of breath. CT DLP: 321.70 mGycm CONTRAST: CT chest with contrast and 3D reconstruction with MIP imaging is performed with IV Contrast, patient injected with 65 mL of Visipaque 320. Contrast-enhanced CT of the chest was performed through the course of the pulmonary arteries with alo g and mediastinal window settings submitted. 3D reconstruction with MIP imaging was also performed. PULMONARY ARTERIES: The pulmonary arteries and their major tributaries are patent. I do not see dmitri dence for sizable filling defect to suggest pulmonary embolic process. LUNGS: The lungs are clear and free of infiltrate. No evidence for atelectasis. No pulmonary nodule or mass is detected. No pleural effusion. MEDIASTINUM: Thoracic aorta is of normal caliber . The heart is not enlarged. No evidence for media stinal mass. No mediastinal lymph nodes greater than 1cm. HILAR STRUCTURES: No evidence for mass. No hilar lymph nodes greater than 1 cm. UPPER ABDOMEN: Small gallstone is seen within the gallbladder. IMPRESSION: 1. No evidence for Pulmonary embolism at this time.
[2016-10-29 16:20] VITALS: BP 152/65; PULSE 61; RESP 16; TEMP 97.5
== END 2016-10-29 16:19 | disposition home or self-care (01) ==
LOC: EC 12:03
DX: F41.9 Anxiety disorder, unspecified (principal); R06.02 Shortness of breath; R00.1 Bradycardia, unspecified; E07.9 Disorder of thyroid, unspecified; K21.9 Gastro-esophageal reflux disease without esophagitis; I10 Essential (primary) hypertension; Z88.5 Allergy status to narcotic agent; Z79.1 Long term (current) use of non-steroidal anti-inflammatories (NSAID); Z79.82 Long term (current) use of aspirin; Z79.899 Other long term (current) drug therapy
CPT/HCPCS: 99285; 96374; 96361 ×3; 36415; 94640; 93005; 85379; 83880; 80053; 82550; 82553; 83735; 84484; 85025; 85610; 85730; 71020; 71275; J2060; Q9967

== ENCOUNTER 2016-11-07 07:21 | Day surgery (SDC) | payer MEDICARE, BC ==
[2016-11-05 09:35] VITALS: BMI 32.0
[~2016-11-07 07:21] MED LIST: LACTATED RINGERS 1,000 ML IV SCH; LIDOCAINE 1% 20 ML VIAL (10MG/ML) FOR IV START INTRADERMA PRN
[2016-11-07 07:57] VITALS: RESP 18; TEMP 97.6
[2016-11-07] MEDS ORDERED: PROPOFOL 10 MG/ML 20 ML VIAL IV ONE (08:31)
--- NOTE | 2016-11-07 08:43 | P.GSHP ---
History of Present Illness H&P Date: 11/07/16 Chief Complaint: Screening colonoscopy Cyst 68-year-old female been safe for screening colonoscopy. Her last colonoscopy was over 10 years ago. She's had no GI complaints. - Constitutional Constitutional: Reports as per HPI Past Medical History Past Medical History: Cancer, GERD/Reflux, Hyperlipidemia, Hypertension, Osteoarthritis (OA), Thyroid Disorder Additional Past Medical History / Comment(s): bilat breast CA "25 yrs ago". RLS. HAS WELL HEALING CUT TO LLE THAT HAD STITCHES IN IT FROM LACERATION-NOW HAS STERI STRIPS History of Any Multi-Drug Resistant Organisms: None Reported Past Surgical History: Appendectomy, Back Surgery, Section, Orthopedic Surgery Additional Past Surgical History / Comment(s): BILAT LUMPECTOMY OF BREAST,c- sect x 4, "tailbone removed". COLONOSCOPY Past Anesthesia/Blood Transfusion Reactions: No Reported Reaction Smoking Status: Never smoker - Past Family History Sister(s) Family Medical History: Cancer Additional Family Medical History / Comment(s): Patient's sister had leukemia Brother(s) Family Medical History: Coronary Artery Disease (CAD) Medications and Allergies Home Medications Medication Instructions Recorded Confirmed Type Acetaminophen [Tylenol Arthritis] 1,300 mg PO DAILY 08/23/16 11/07/16 History Aspirin 162 mg PO DAILY 08/23/16 11/07/16 History Atenolol 33.33 mg PO DAILY 08/23/16 11/07/16 History Celecoxib [CeleBREX] 200 mg PO DAILY 08/23/16 11/07/16 History Diclofenac Sodium [Voltaren Gel] 1 applic TOPICAL Q6H PRN 08/23/16 11/07/16 History Fexofenadine HCl [Anali Allergy] 180 mg PO DAILY 08/23/16 11/07/16 History Furosemide [Lasix] 20 mg PO DAILY 08/23/16 11/07/16 History Levothyroxine Sodium [Tirosint] 100 mcg PO DAILY 08/23/16 11/07/16 History Lisinopril [Zestril] 10 mg PO DAILY 08/23/16 11/07/16 History Omeprazole 20 mg PO DAILY PRN 08/23/16 11/07/16 History Potassium Chloride [Klor-Con 10] 10 meq PO BID 08/23/16 11/07/16 History Simvastatin [Zocor] 20 mg PO DAILY@1200 08/23/16 11/07/16 History amLODIPine BESYLATE [Norvasc] 10 mg PO DAILY 08/23/16 11/07/16 History rOPINIRole HCL 1 mg PO HS 08/23/16 11/07/16 History rOPINIRole HCL [Requip] 0.5 mg PO DAILY PRN 08/23/16 11/05/16 History Allergies Allergy/AdvReac Type Severity Reaction Status Date / Time meperidine [From Demerol] AdvReac Nausea & Verified 11/07/16 07:53 Vomiting Surgical - Exam Vital Signs Temp Pulse Resp BP Pulse Ox 97.6 F 56 L 18 163/70 96 11/07/16 07:55 11/07/16 07:55 11/07/16 07:55 11/07/16 07:55 11/07/16 07:55 - General well developed, no distress - Eyes PERRL - ENT normal pinna - Neck no masses - Respiratory normal expansion - Cardiovascular Rhythm: regular - Abdomen Abdomen: soft, non tender Assessment and Plan Plan: We'll perform screening colonoscopy.
--- NOTE | 2016-11-07 09:00 | P.OP ---
Date of Procedure: 11/07/16 Preoperative Diagnosis: Screening colonoscopy Postoperative Diagnosis: Diverticulosis Procedure(s) Performed: Colonoscopy Implants: Anesthesia: MAC Surgeon: Herve Mcintosh Pathology: none sent Condition: stable Disposition: PACU Indications for Procedure: Operative Findings: Description of Procedure: Patient's placed on the endoscopy table in the lateral position. She received IV sedation. Digital rectal exam was performed which revealed no abnormalities. The flexible colonoscope was then placed patient anus passed throughout the entire colon. The ileocecal valve was visualized. The cecum, ascending colon, transverse colon appeared normal. In the descending and sigmoid colon there was extensive diverticular changes. The scope was then brought back the rectum and this appeared normal. Scope was withdrawn for patient.
[2016-11-07 09:28] VITALS: BP 150/64; PULSE 56
== END 2016-11-07 10:00 | disposition home or self-care (01) ==
LOC: ORWHC2ENDO 07:21
PROVIDERS: ATTEND Surgery
DX: Z12.11 Encounter for screening for malignant neoplasm of colon (principal); I10 Essential (primary) hypertension; M19.90 Unspecified osteoarthritis, unspecified site; E78.5 Hyperlipidemia, unspecified; K21.9 Gastro-esophageal reflux disease without esophagitis; E07.9 Disorder of thyroid, unspecified; G25.81 Restless legs syndrome; Z79.82 Long term (current) use of aspirin; Z79.899 Other long term (current) drug therapy; Z85.3 Personal history of malignant neoplasm of breast; Z88.5 Allergy status to narcotic agent
CPT/HCPCS: J2704; G0121

== ENCOUNTER → 2016-12-19 | Outpatient (CLI) | payer MEDICARE, BC ==
--- NOTE | 2016-12-22 10:02 | MM ---
Reason for exam: screening (asymptomatic). Last mammogram was performed 2 years and 3 months ago. History: Patient is postmenopausal and has history of breast cancer at age 51. Benign excisional biopsy of the right breast, 2011. Reductions of both breasts, 2004. Lumpectomy of the left breast, 1990. Radiation therapy of the left breast, 1990. 2 benign excisional biopsies of the left breast. Physical Findings: A clinical breast exam by your physician is recommended on an annual basis and results should be correlated with mammographic findings. MG 3D Screening Mammo W/Cad Bilateral CC and MLO view(s) were taken. Prior study comparison: September 13, 2014, mammogram. August 30, 2013, mammogram. There are scattered fibroglandular densities. Stable surgical scar upper outer quadrant right breast. Benign oil cyst calcifications in the right breast and areas of fat necrosis. Stable fat necrosis calcifications anterior left breast and prior mammoplasty changes. No significant changes when compared with prior studies. ASSESSMENT: Benign, BI-RAD 2 RECOMMENDATION: Routine screening mammogram of both breasts in 1 year.
== END | disposition home or self-care (01) ==
LOC: RADMAMWWP 10:28
PROVIDERS: ATTEND Family Medicine
DX: Z12.31 Encounter for screening mammogram for malignant neoplasm of breast (principal)
CPT/HCPCS: 77063; G0202

== ENCOUNTER → 2017-02-27 | Outpatient (CLI) | payer MEDICARE, BC ==
--- NOTE | 2017-02-27 08:26 | CT ---
EXAMINATION TYPE: CT brain wo con DATE OF EXAM: 02/27/2017 COMPARISON: NONE HISTORY: Mental Status Changes, dizziness, and weakness in the lower extremities. CT DLP: 981.7 mGycm. Automated Exposure Control for Dose Reduction was Utilized. TECHNIQUE: CT scan of the head is performed without contrast. FINDINGS: There is no acute intracranial hemorrhage or midline shift identified. There is diffuse v entricular and sulcal prominence consistent with diffuse age-related cerebral atrophy. There is low- attenuation in the periventricular white matter most commonly related to chronic small vessel ischemi c change. These findings are most confluent within the subcortical right parietal lobe on series 6 im age 27 and within the periventricular white matter. Old lacunar injury seen of the external capsule o n the right and series 6 image 24 measuring 5 mm. The globes are intact and the visualized sinuses ar e clear. Atherosclerosis is noted of the intracranial vasculature. Incidental note is made of hyper ostosis frontalis internus. IMPRESSION: 1. No acute intracranial hemorrhage or midline shift. 2. Old lacunar injury of the external capsule on the right. 3. Diffuse age-related cerebral atrophy and chronic small vessel ischemic change noted, most confluen t within the right parietal lobe.
== END | disposition home or self-care (01) ==
LOC: RADCTMAIN 07:45
PROVIDERS: ATTEND Family Medicine
DX: I67.82 Cerebral ischemia (principal); G31.1 Senile degeneration of brain, not elsewhere classified
CPT/HCPCS: 70450

== ENCOUNTER → 2018-02-03 | Outpatient (CLI) | payer MEDICARE, BC ==
--- NOTE | 2018-02-04 09:39 | MM ---
Reason for exam: additional evaluation requested from prior study. Last mammogram was performed 1 year and 2 months ago. History: Patient is postmenopausal and has history of breast cancer at age 51. Benign excisional biopsy of the right breast, 2011. Reductions of both breasts, 2004. Lumpectomy of the left breast, 1990. Radiation therapy of the left breast, 1990. 2 benign excisional biopsies of the left breast. Physical Findings: Nurse did not find any significant physical abnormalities on exam. MG 3D Diag Mammo W/Cad LIZ Bilateral CC and MLO view(s) were taken. Prior study comparison: December 19, 2016, bilateral MG 3d screening mammo w/cad. September 13, 2014, mammogram. The breast tissue is heterogeneously dense. This may lower the sensitivity of mammography. There is chronic nodularity bilaterally. There is no dominant lesion. Post operative changes bilaterally are stable. No significant new findings when compared with previous films. These results were verbally communicated with the patient and result sheet given to the patient on 02/03/18. ASSESSMENT: Benign, BI-RAD 2 RECOMMENDATION: Follow-up diagnostic mammogram of both breasts in 1 year.
== END | disposition home or self-care (01) ==
LOC: RADMAMWWP 13:09
PROVIDERS: ATTEND Family Medicine
DX: Z08 Encounter for follow-up examination after completed treatment for malignant neoplasm (principal); Z85.3 Personal history of malignant neoplasm of breast
CPT/HCPCS: 77066; G0279; 77062

== ENCOUNTER 2018-03-10 10:42 | Emergency (ER) | payer MEDICARE, BC ==
[2018-03-10 10:54] VITALS: BP 174/76; PULSE 65; RESP 18; TEMP 98.4
[2018-03-10] MEDS ORDERED: LIDOCAINE 1% INJ 10MG/ML (20 ML MDV) SQ ONE (11:08)
--- NOTE | 2018-03-10 11:08 | ED ---
General Adult HPI - General Chief complaint: Wound/Laceration Stated complaint: left leg laceration Time Seen by Provider: 03/10/18 10:57 Source: patient, RN notes reviewed, old records reviewed Mode of arrival: wheelchair Limitations: no limitations - History of Present Illness Initial comments: 78-year-old female presents with injury to the left leg. Patient states she cut her skin on the anterior portion of her left leg while getting out of the car. Denies significant pain in this extremity. No pain with ambulation. Her tetanus is up-to-date, she received immunization 1 year ago. No blood thinners. No other injury. - Related Data Home Medications Medication Instructions Recorded Confirmed Fexofenadine HCl [Anali Allergy] 180 mg PO DAILY 08/23/16 03/13/17 Furosemide [Lasix] 20 mg PO DAILY 08/23/16 03/13/17 Levothyroxine Sodium [Tirosint] 100 mcg PO DAILY 08/23/16 03/13/17 Lisinopril [Zestril] 10 mg PO BID 08/23/16 03/13/17 Omeprazole 20 mg PO DAILY PRN 08/23/16 03/13/17 Potassium Chloride [Klor-Con 10] 20 meq PO QAM 08/23/16 03/13/17 Simvastatin [Zocor] 20 mg PO HS 08/23/16 03/13/17 amLODIPine BESYLATE [Norvasc] 10 mg PO DAILY 08/23/16 03/13/17 rOPINIRole HCL 1 mg PO HS 08/23/16 03/13/17 rOPINIRole HCL [Requip] 0.5 mg PO DAILY PRN 08/23/16 03/13/17 Acetaminophen Tab [Tylenol Tab] 1,000 mg PO Q6HR PRN 03/13/17 03/13/17 Aspirin 81 mg PO DAILY 03/13/17 03/13/17 Donepezil HCl [Aricept] 5 mg PO HS 03/13/17 03/13/17 Sertraline [Zoloft] 25 mg PO DAILY 03/13/17 03/13/17 Allergies Allergy/AdvReac Type Severity Reaction Status Date / Time meperidine [From Demerol] AdvReac Nausea & Verified 03/10/18 10:54 Vomiting Review of Systems ROS Statement: Those systems with pertinent positive or pertinent negative responses have been documented in the HPI. ROS Other: All systems not noted in ROS Statement are negative. Past Medical History Past Medical History: Hypertension Additional Past Medical History / Comment(s): bilat breast CA "25 yrs ago" History of Any Multi-Drug Resistant Organisms: None Reported Past Surgical History: Appendectomy, Section, Orthopedic Surgery Additional Past Surgical History / Comment(s): portion of left breast and right breast removed, c- sect x 4, "tailbone removed" Past Psychological History: No Psychological Hx Reported Smoking Status: Never smoker Past Alcohol Use History: None Reported Past Drug Use History: None Reported - Past Family History Sister(s) Family Medical History: Cancer Additional Family Medical History / Comment(s): Patient's sister had leukemia Brother(s) Family Medical History: Coronary Artery Disease (CAD) General Exam Limitations: no limitations General appearance: alert, in no apparent distress Head exam: Present: atraumatic, normocephalic Eye exam: Present: normal appearance, PERRL Respiratory exam: Present: normal lung sounds bilaterally. Absent: respiratory distress Cardiovascular Exam: Present: regular rate, normal rhythm Extremities exam: Present: other (6 cm laceration to the anterior mid leg) Course Vital Signs 03/10/18 10:52 Temperature 98.4 F Pulse Rate 65 Respiratory 18 Rate Blood Pressure 174/76 O2 Sat by Pulse 96 Oximetry Procedures - Laceration Laceration #1 Consent Obtained: verbal consent Time Out Performed: Yes Indication: laceration Site: lower extremity Description: stellate, flap, avulsion Depth: simple, single layer Anesthetic Used: lidocaine 1% Anesthesia Technique: local infiltration Amount (mls): 10 Pre-repair: wound explored, irrigated extensively, deep structures intact, extensive debridement, wound margins revised Type of Sutures: nylon Size of Sutures: 4-0 Number of Sutures: 6 Technique: simple, interrupted Patient Tolerated Procedure: well, no complications Medical Decision Making - Medical Decision Making 78-year-old female with laceration and skin avulsion to the left anterior mercedes. Patient's tetanus is up-to-date. Wound is anesthetized, irrigated and closed with nylon suture. Patient tolerates procedure well. She will change dressings daily, apply topical antibiotic ointment. Return to sinus infection. Return with the primary care physician or return to emergency department for suture removal in 14 days. Disposition Clinical Impression: Laceration Disposition: HOME SELF-CARE Condition: Good Instructions: Laceration (ED), Care For Your Stitches (ED) Additional Instructions: Return for suture removal in 14 days. Is patient prescribed a controlled substance at d/c from ED?: No Referrals: Marta Burgess DO [Primary Care Provider] - 1-2 days Time of Disposition: 11:36
== END 2018-03-10 11:53 | disposition home or self-care (01) ==
LOC: EC 10:42
DX: S81.812A Laceration without foreign body, left lower leg, initial encounter (principal); I10 Essential (primary) hypertension; Z88.5 Allergy status to narcotic agent; Z79.82 Long term (current) use of aspirin; Z79.899 Other long term (current) drug therapy; Z85.3 Personal history of malignant neoplasm of breast; Z98.890 Other specified postprocedural states; W45.8XXA Other foreign body or object entering through skin, initial encounter; Y93.89 Activity, other specified; Y92.89 Other specified places as the place of occurrence of the external cause
CPT/HCPCS: 99283; 12002; J2001

== ENCOUNTER → 2019-02-11 | Outpatient (CLI) | payer MEDICARE, BC ==
--- NOTE | 2019-02-14 09:04 | MM ---
Reason for exam: additional evaluation requested from prior study. Last mammogram was performed 1 year ago. History: Patient is postmenopausal and has history of breast cancer at age 51. Benign excisional biopsy of the right breast, 2011. Reductions of both breasts, 2004. Lumpectomy of the left breast, 1990. Radiation therapy of the left breast, 1990. 2 benign excisional biopsies of the left breast. Physical Findings: Nurse did not find any significant physical abnormalities on exam. MG 3D Diag Mammo W/Cad LIZ Bilateral CC and MLO view(s) were taken. XCCL view(s) were taken of the left breast. Prior study comparison: February 03, 2018, bilateral MG 3d diag mammo w/cad LIZ. December 19, 2016, bilateral MG 3d screening mammo w/cad. There are scattered fibroglandular densities. No suspicious abnormality. Bilateral post surgical change. Multiple areas of benign fat necrosis bilaterally. These results were verbally communicated with the patient and result sheet given to the patient on 02/11/19. ASSESSMENT: Benign, BI-RAD 2 RECOMMENDATION: Routine screening mammogram of both breasts in 1 year.
== END | disposition home or self-care (01) ==
LOC: RADMAMWWP 13:07
PROVIDERS: ATTEND Family Medicine
DX: R92.8 Other abnormal and inconclusive findings on diagnostic imaging of breast (principal)
CPT/HCPCS: 77066; G0279; 77062

== ENCOUNTER → 2019-04-07 | Outpatient (CLI) | payer MEDICARE, BC ==
--- NOTE | 2019-04-08 11:37 | CT ---
EXAMINATION TYPE: CT angio neck DATE OF EXAM: 04/07/2019 HISTORY: Carotid stenosis. COMPARISON: None CT DLP: 328.6 mGycm. Automated Exposure Control for Dose Reduction was Utilized. TECHNIQUE: CTA scan of the neck is performed with IV Contrast, patient injected with 65ml mL of Isov ue 370, axial images are obtained, coronal and sagittal reformatted images are reviewed. Three-D george nstructed images are created on an independent workstation and reviewed. Source images are reviewed. FINDINGS: Carotid/Vascular Structures: There is a three-vessel arch. Vertebral arteries are codominant. There m ay be some vascular narrowing at the right internal carotid artery origin measuring 50%. Mild plaque without significant stenosis is present on the left. Other: Certified Teacher Assistant spaces appear normal. Torus tubarius and fossa Rosenmuller appear within normal urena its. Parotid glands appear unremarkable. Submandibular glands appear normal. Lung apices within the f [id number] are clear. IMPRESSION: 1. 50% narrowing right internal carotid artery origin.
== END | disposition home or self-care (01) ==
LOC: RADCTMAIN 15:47
PROVIDERS: ATTEND Surgery
DX: I65.21 Occlusion and stenosis of right carotid artery (principal)
CPT/HCPCS: 82565; 84520; 70498; 36415; Q9967

== ENCOUNTER → 2019-12-23 | Outpatient (CLI) | payer MEDICARE, BC ==
--- NOTE | 2019-12-23 17:54 | CT ---
EXAMINATION TYPE: CT angio neck DATE OF EXAM: 12/23/2019 HISTORY: Carotid stenosis COMPARISON: CT neck 04/07/2019 CT DLP: 334 mGycm. Automated Exposure Control for Dose Reduction was Utilized. TECHNIQUE: CTA scan of the neck is performed without and with IV Contrast, patient injected with 65 ml mL of Isovue 370, axial images are obtained, coronal and sagittal reformatted images are reviewed. Three-D reconstructed images are created on an independent workstation and reviewed. NASCET criteria utilized. FINDINGS: Carotid/Vascular Structures: Three-vessel arch. Codominant vertebrobasilar system. Atherosclerotic di sease of the bilateral carotid bulbs. There is 50 narrowing of the proximal right internal carotid ar josé at the bulb. No significant stenosis on the left. Other: Lung apices unremarkable. No cervical lymphadenopathy seen. Degenerative changes of the cervic al spine. IMPRESSION: 50% stenosis of the origin of the right internal carotid artery, similar to 04/07/2019 CTA comparison.
== END | disposition home or self-care (01) ==
LOC: RADCTMAIN 09:59
PROVIDERS: ATTEND Surgery
DX: I65.21 Occlusion and stenosis of right carotid artery (principal)
CPT/HCPCS: 82565; 84520; 70498; 36415; Q9967

== ENCOUNTER 2020-02-03 07:50 | Day surgery (SDC) | payer MEDICARE, BC ==
[2020-01-27 13:44] VITALS: BMI 35.6
[~2020-02-03 07:50] MED LIST changes: +ASPIRIN 325 MG TAB PO STA; +CLOPIDOGREL 75 MG TAB PO STA; +DEXAMETHASONE SOD PHOSPHATE 10 MG/ML 1 ML VIAL IV ONE; +HYDROmorphone 0.5 MG/0.5 ML SYRINGE IVP PRN; +LIDOCAINE 1% (10MG/ML) FOR IV START INTRADERMA PRN; -LIDOCAINE 1% 20 ML VIAL (10MG/ML) FOR IV START INTRADERMA PRN; +NITROGLYCERIN SL TABS 0.4 MG TAB SUBLINGUAL PRN; +ONDANSETRON 4 MG/2 ML VIAL IVP ONE; +SODIUM CHLORIDE 0.9% 1,000 ML in EMPTY BAG 1 BAG IV ONE
[2020-02-03] MEDS ORDERED: SODIUM CHLORIDE 0.9% 1,000 ML IV ONE (08:08)
[2020-02-03 08:38] LABS: Basophils % (A) 1 %; Eosinophils # (A) 0.1 k/uL (0-0.7); Eosinophils % (A) 2 %; HGB 13.6 gm/dL (11.4-16.0); Lymphocytes # (A) 1.6 k/uL (1.0-4.8); Lymphocytes % (A) 25 %; MCH 30.1 pg (25.0-35.0); MCHC 31.6 g/dL (31.0-37.0); MCV 95.2 fL (80.0-100.0); Mean Platelet Volume 7.8; Monocytes # (A) 0.4 k/uL (0-1.0); Monocytes % (A) 7 %; Neutrophils # (A) 4.3 k/uL (1.3-7.7); Neutrophils % (A) 65 %; Platelet Count 184 k/uL (150-450); RBC 4.52 m/uL (3.80-5.40); RDW 12.7 % (11.5-15.5); WBC 6.6 k/uL (3.8-10.6)
[2020-02-03 08:57] LABS: Calcium 9.2 mg/dL (8.4-10.2); Potassium 4.6 mmol/L (3.5-5.1); Total Bilirubin 0.5 mg/dL (0.2-1.3); Total Protein 7.1 g/dL (6.3-8.2)
[2020-02-03] MEDS ORDERED: ceFAZolin 1,000 MG in SODIUM CHLORIDE 0.9% IRRIGATIO 250 ML IRRIGATION NR (09:00)
[2020-02-03] MEDS ORDERED: ceFAZolin 1,000 MG in SODIUM CHLORIDE 0.9% IRRIGATIO 1,000 ML IRRIGATION ONE (09:00)
[2020-02-03] MEDS ORDERED: DEXMEDETOMIDINE/0.9% NACL(PMX) 400 MCG in EMPTY BAG 1 BAG IV SCH (09:30)
[2020-02-03] MEDS ORDERED: ASPIRIN 81 MG ONE (10:22)
[2020-02-03] MEDS ORDERED: PHENYLEPHRINE-0.9% NACL SYG 1 MG/10 ML SYRINGE ONE (10:35)
[2020-02-03] MEDS ORDERED: HEPARIN SODIUM,PORCINE 10,000 UNIT/ML 1 ML VIAL ONE (10:35)
[2020-02-03] MEDS ORDERED: GLYCOPYRROLATE 0.2 MG/ML 2 ML VIAL ONE (10:35)
[2020-02-03] MEDS ORDERED: PROTAMINE SULFATE 10 MG/ML 5 ML VIAL IV ONE ×2 (10:35→12:00)
[2020-02-03] MEDS ORDERED: DEXMEDETOMIDINE 200 MCG/2 ML VIAL IV ONE (10:35)
[2020-02-03] MEDS ORDERED: fentaNYL (PF) 50 MCG/ML 2 ML AMP ONE (10:35)
[2020-02-03] MEDS ORDERED: LIDOCAINE 1% INJ 10MG/ML (20 ML MDV) SQ ONE (10:58)
[2020-02-03] MEDS ORDERED: IOPAMIDOL-370 100ML BTL INJ ONE (11:54)
[2020-02-03] MEDS ORDERED: SODIUM CHLORIDE 0.9% 500 ML 500 ML IV ONE (12:09)
[2020-02-03] MEDS ORDERED: ATROPINE SULFATE 0.1 MG/ML 10ML SYRINGE IV PRN (12:33)
[2020-02-03] MEDS ORDERED: RX INFO: IV CONTRAST WAS GIVEN 1 EACH MISC MISCELLANE PRN (12:33)
[2020-02-03] MEDS ORDERED: MAG HYDROX/AL HYDROX/SIMETH 30 ML CUP PO PRN (12:33)
--- NOTE | 2020-02-03 12:33 | P.OP ---
Description of Procedure: Date: 02/03/2020 Preoperative diagnosis: Asymptomatic right internal carotid artery stenosis greater than 90% Postoperative diagnosis: Same Procedure: 1. Right Transcarotid artery revascularization with stenting 2. Left common femoral vein ultrasound-guided central venous catheter 3. Right carotid angiogram Surgeon: Vicente Pa DO Hand Driller: Chacha Alonso DO Anesthesia: Local with sedation Complications: None Condition: Stable Findings: Complete resolution of stenosis after stenting Indication for procedure: 79-year-old female presented to the office secondary to carotid stenosis found on carotid Doppler and CT angiogram. Discussion was had about possible open versus transfer carotid artery revascularization and stenting and due to her comorbidities and age it was determined to perform a TCAR procedure. She presents today for such procedure. Operative narrative: After written and informed consent was obtained the patient all risks benefits and competitions were described the patient was brought to the [place] and laid in a supine position. The area of the neck and groins were prepped and draped in usual sterile fashion after appropriate anesthetic was performed per the anesthesiologist. A timeout was performed in normal fashion and antibiotics were administered prior to incision. Utilizing u ltrasound the right common carotid artery was located and a transverse incision was created overlying this area. Dissection was carried between the sternocleidomastoid musculature down to the carotid sheath. The sheath was then incised and the common carotid artery was located and dissected free in a circumferential manner and controlled with umbilical tape. Once controlled attention was placed down to the common femoral vein on the left and utilizing ultrasound the vein was cannulated and the 8-Maltese sheath was placed in normal fashion. Attention was then placed back to the carotid artery and the patient was administered heparin and followed with ACTs and redosed as needed for ACT above 200. A pursestring suture was then placed at the common carotid artery with 5-0 Prolene and utilizing a multipurpose needle the common carotid artery was accessed and wire was placed followed by a 4-Maltese sheath. Carotid angiogram was then obtained demonstrating significant stenosis 90% in the internal carotid artery. Stiff wire was then placed followed by the 8 Maltese Sil[place] sheath. Flow reversal was then established with the enroute DIRECTOR OF CODING system after patient's blood pressure was increased to above 160, heart rate above 60 and ACT above 250. 014 wire was then placed across the lesion followed by a 5.5x30mm Ingram balloon and balloon angioplasty was performed followed by an 9 x 40 mm Silkroad stent. Postdilatation was not performed and final angiogram was obtained demonstrating complete resolution of the stenosis. All guidewires and catheters were removed and the sheath was removed and the arteriotomy was secured with the previously placed pursestring suture. Hemostasis was assured with Surgicel. The femoral sheath was also removed and pressure was held for hemostasis. The patient all procedure well and was moving all extremities and following commands. She was then sent to PACU for recovery.
[2020-02-03] MEDS ORDERED: LORATADINE 10 MG TAB PO PRN (12:41)
[2020-02-03] MEDS ORDERED: GLYCOPYRROLATE 0.2 MG/ML 2 ML VIAL IVP ONE (13:02)
[2020-02-03 14:04] LABS: Glucose,Whole Blood 92 mg/dL (75-99)
[2020-02-03] MEDS: SODIUM CHLORIDE 0.9% 1,000 ML IV SCH ×2 (14:15→23:10)
--- NOTE | 2020-02-03 14:28 | IR ---
Fluoroscopy HISTORY: Carotid stenosis 5.7 minutes fluoroscopy time supplied to the referring clinician. 291 intraoperative C-arm images do cument the procedure. See dictated report from vascular surgery.
[2020-02-03] MEDS ORDERED: ACETAMINOPHEN TAB 325 MG TAB PO PRN (14:52)
[2020-02-03] MEDS ORDERED: MORPHINE SULFATE 2 MG/ML SYRINGE IVP PRN (14:52)
--- NOTE | 2020-02-03 16:06 | P.CNPUL ---
History of Present Illness Consult date: 02/03/20 Chief complaint: Asymptomatic internal carotid artery stenosis, TCAR History of present illness: 79-year-old here patient got transferred to the intensive care unit following a TCAR procedure. The patient had an asymptomatic right internal carotid artery stenosis in the order of 90%. She is currently postop day #0. She is in the intensive care unit. She is hemodynamically stable. Surgical wound site over the right neck area and the left groin is dry clean and intact. Patient is moving all 4 extremities. She has some mild bradycardia which is sinus in nature. No focal neurological deficit. No hoarseness. No difficulties in speech. No other complaints otherwise for now. Urine output is adequate. The patient is in for monitoring post her surgery. Review of Systems Constitutional: Denies chills, Denies fever Eyes: denies as per HPI, denies blurred vision, denies bulging eye, denies decreased vision, denies diplopia, denies discharge, denies dry eye, denies irritation, denies itching, denies pain, denies photophobia, denies loss of peripheral vision, denies loss of vision, denies tunnel vision/blind spots Ears: deny: decreased hearing, ear discharge, earache, tinnitus Ears, nose, mouth and throat: Reports as per HPI Breasts: absent: as per HPI, change in shape, gynecomastia, masses, nipple discharge, pain, skin changes, swelling Cardiovascular: Reports as per HPI Respiratory: Reports as per HPI Gastrointestinal: Reports as per HPI Genitourinary: Reports as per HPI Menstruation: Reports as per HPI Musculoskeletal: Reports as per HPI Musculoskeletal: absent: ankle pain, ankle stiffness, ankle swelling Integumentary: Reports as per HPI Neurological: Reports as per HPI Psychiatric: Reports as per HPI Endocrine: Reports as per HPI Hematologic/Lymphatic: Reports as per HPI Allergic/Immunologic: Reports as per HPI Past Medical History Past Medical History: Cancer, Dementia, Hearing Disorder / Deafness, Hyp erlipidemia, Hypertension, Osteoarthritis (OA), Thyroid Disorder, Vascular Disorder Additional Past Medical History / Comment(s): History of bilateral breast cancer, dementia, hearing impairment and the patient wears hearing aids, carotid artery stenosis symptomatic on the right in the order of 90%, history of vertigo, hypertension, hyperlipidemia, hypothyroidism and osteoarthritis. History of Any Multi-Drug Resistant Organisms: None Reported Past Surgical History: Appendectomy, Breast Surgery, Section, Orthope dic Surgery Additional Past Surgical History / Comment(s): "breast reduction" - portion of left breast and right breast removed, C-S x4, "tailbone removed" Past Anesthesia/Blood Transfusion Reactions: No Reported Reaction Smoking Status: Never smoker, Unknown if ever smoked - Past Family History Sister(s) Family Medical History: Cancer Additional Family Medical History / Comment(s): Patient's sister had leukemia Brother(s) Family Medical History: Coronary Artery Disease (CAD) Medications and Allergies Home Medications Medication Instructions Recorded Confirmed Type Fexofenadine HCl [Anali Allergy] 180 mg PO DAILY PRN 08/23/16 02/03/20 History Furosemide [Lasix] 20 mg PO DAILY 08/23/16 02/03/20 History Potassium Chloride [Klor-Con 10] 20 meq PO QAM 08/23/16 02/03/20 History amLODIPine BESYLATE [Norvasc] 10 mg PO DAILY 08/23/16 02/03/20 History Sertraline [Zoloft] 25 mg PO DAILY 03/13/17 02/03/20 History Levothyroxine Sodium [Synthroid] 125 mcg PO DAILY 03/10/18 02/03/20 History lisinopriL 40 mg PO DAILY 03/10/18 02/01/20 History risperiDONE [RisperDAL] 0.5 mg PO HS 03/10/18 02/03/20 History Acetaminophen [Tylenol Extra 500 - 1,000 mg PO DIRECTED PRN 01/27/20 02/01/20 History Strength] Atorvastatin [Lipitor] 80 mg PO HS 01/27/20 02/03/20 History Clopidogrel [Plavix] 75 mg PO HS 01/27/20 02/03/20 History Memantine [Namenda] 10 mg PO DAILY 01/27/20 02/03/20 History Prevalite 1 packet PO DAILY 01/27/20 02/03/20 History Allergies Allergy/AdvReac Type Severity Reaction Status Date / Time meperidine [From Demerol] AdvReac Nausea & Verified 02/01/20 11:51 Vomiting Physical Exam Vitals: Vital Signs Temp Pulse Pulse Resp BP BP Pulse Ox 02/03/20 15:30 51 L 15 120/62 02/03/20 15:15 55 L 14 134/63 02/03/20 15:00 56 L 17 126/59 94 L 02/03/20 14:45 55 L 17 122/60 02/03/20 14:30 44 L 19 121/62 02/03/20 14:15 96.7 F L 46 L 14 127/78 93 L 02/03/20 13:47 49 L 16 117/54 97 02/03/20 13:32 44 L 16 115/56 98 02/03/20 13:15 43 L 16 115/56 96 02/03/20 13:00 45 L 16 108/54 96 02/03/20 12:45 46 L 16 111/55 96 02/03/20 12:33 98.2 F 56 L 16 106/64 91 L 02/03/20 08:38 98.0 F 70 16 138/70 96 Intake and Output 02/03/20 02/03/20 02/03/20 06:59 14:59 22:59 Intake Total 1453 103 Output Total 100 Balance 1353 103 Intake: IV 1453 103 0.9 Normal Saline for 3 3 pressure bag @ 3 ml/hr Sodium Chloride 0.9% 1, 100 100 000 ml @ 100 mls/hr IV . Q10H [facility] Rx#:[id number] Output: Urine 100 Other: Weight 84.6 kg ABP, PAP, CO, CI - Last 8 Hours Arterial Blood Pressure 139/60 Arterial Blood Pressure 139/60 Arterial Blood Pressure 143/61 Arterial Blood Pressure 136/57 Arterial Blood Pressure 134/51 Arterial Blood Pressure 123/18 The patient appeared well nourished and normally developed. Vital signs as documented. Head exam is unremarkable. No scleral icterus or corneal arcus noted. Neck is without jugular venous distension, thyromegaly, or carotid bruits. Carotid upstrokes are brisk bilaterally. The surgical wound site over the right neck areas dry clean and intact. No hematoma formation. Lungs are clear to auscultation and percussion. Cardiac exam reveals the PMI to be normally sized and situated. Rhythm is regular. First and second heart sounds normal. No murmurs, rubs or gallops. Abdominal exam reveals normal bowel sounds, no masses, no organomegaly and no aortic enlargement. Extremities are nonedematous and both femoral and pedal pulses are normal.Examination of the skin revealed no evidence of significant rashes, suspicious appearing nevi or other concerning lesions.Neurologically, the patient is awake and alert and the patient does not have any focal neurological deficit. Cranial nerves are essentially intact. Results - Laboratory Findings CBC and BMP: 02/03/20 08:20 02/03/20 08:20 Abnormal lab findings: Abnormal Labs 02/03/20 08:20 Chloride 112 H BUN 27 H Creatinine 1.29 H Assessment and Plan Plan: 1 Asymptomatic right internal carotid artery stenosis greater than 90%, the patient is status post Right Transcarotid artery revascularization with stenting, postop day #0 2 history of breast cancer, left-sided with a previous lumpectomy and axillary lymph node dissection followed by radiation therapy 3 hypertension 4 hyperlipidemia 5 dementia, mild 6 hypothyroidism 7 osteoarthritis 8 acute kidney injury with drop in a GFR down to 39, we will like to monitor Plan The patient is having some mild sinus bradycardia postop and this needs to be monitored. Hemodynamically stable on no pressors No immediate surgical complications following the carotid artery surgery. No neurologic impairment Resume Risperdal and Coral Obtain a clearance from vascular surgery to restart Plavix Restart Lipitor 80 mg by mouth daily Lisinopril as long as the blood pressure is well maintained and there are no signs of hypotension Neurochecks We'll continue to follow
[2020-02-03] MEDS ORDERED: CLOPIDOGREL 75 MG TAB PO SCH (21:00)
[2020-02-03] MEDS ORDERED: ATORVASTATIN 40 MG TAB PO SCH (21:00)
[2020-02-03] MEDS ORDERED: risperiDONE 0.5 MG TAB PO SCH (21:00)
[2020-02-03] MEDS ORDERED: ATORVASTATIN 80 MG TAB PO SCH (21:00)
[2020-02-04 05:12] LABS: Basophils % (A) 1 %; Eosinophils # (A) 0.1 k/uL (0-0.7); Eosinophils % (A) 2 %; HCT 37.8 % (34.0-46.0); HGB 11.9 gm/dL (11.4-16.0); Hypochromasia Slight; Lymphocytes # (A) 1.1 k/uL (1.0-4.8); Lymphocytes % (A) 21 %; MCH 30.3 pg (25.0-35.0); MCHC 31.6 g/dL (31.0-37.0); Mean Platelet Volume 8.5; Monocytes # (A) 0.3 k/uL (0-1.0); Monocytes % (A) 6 %; Neutrophils # (A) 3.7 k/uL (1.3-7.7); Neutrophils % (A) 69 %; Platelet Count 150 k/uL (150-450); RBC 3.94 m/uL (3.80-5.40); RDW 12.7 % (11.5-15.5); WBC 5.3 k/uL (3.8-10.6)
[2020-02-04 05:22] LABS: Calcium 8.2 mg/dL (8.4-10.2); Potassium 4.3 mmol/L (3.5-5.1)
[2020-02-04] MEDS ORDERED: LEVOTHYROXINE 125 MCG TAB PO SCH (06:30)
[2020-02-04] MEDS ORDERED: PREVALITE PO SCH (09:00)
[2020-02-04] MEDS ORDERED: ASPIRIN 325 MG TAB PO SCH (09:00)
[2020-02-04] MEDS ORDERED: MEMANTINE 10 MG TAB PO SCH (09:00)
[2020-02-04] MEDS ORDERED: amLODIPine 10 MG TAB PO SCH (09:00)
[2020-02-04] MEDS ORDERED: lisinopriL 20 MG TAB PO SCH (09:00)
[2020-02-04] MEDS ORDERED: POTASSIUM CHLORIDE ER 20 MEQ TAB.ER PO SCH (09:00)
[2020-02-04] MEDS ORDERED: SERTRALINE 25 MG TAB PO SCH (09:00)
[2020-02-04] MEDS ORDERED: FUROSEMIDE 20 MG TAB PO SCH (09:00)
--- NOTE | 2020-02-04 11:12 | P.DS ---
Providers Attending physician: Vicente Pa DO Consults: 02/03/20 12:33 Consult Physician Routine Consulting Provider: Lefty Machado Consult Reason/Comments: icu care Do you want consulting provider notified?: Yes 02/03/20 12:34 Consult Physician Routine Consulting Provider: Sedrick Burgess Consult Reason/Comments: medical management Do you want consulting provider notified?: Yes Primary care physician: [facility] Course: The patient is an 79-year-old female who was admitted yesterday following a right trans-carotid artery revascularization for high-grade right internal carotid artery stenosis. She tolerated the procedure well without any significant issues. She was monitored in the ICU overnight without any issue. She's been voiding on her own solution. She continues to have an arterial line which will be removed today. She remains neurologically intact. The neck is clean and dry. No evidence of hematoma or ecchymosis. At this point we will remove her arterial line, get her up and moving around. If she is doing well without any significant issue we will plan to discharge her home later today. Patient Condition at Discharge: Good Plan - Discharge Summary Discharge Rx Participant: No New Discharge Prescriptions: No Action Furosemide [Lasix] 20 mg PO DAILY amLODIPine BESYLATE [Norvasc] 10 mg PO DAILY Potassium Chloride [Klor-Con 10] 20 meq PO QAM Fexofenadine HCl [Anali Allergy] 180 mg PO DAILY PRN PRN Reason: ALLERGY SX Sertraline [Zoloft] 25 mg PO DAILY lisinopriL 40 mg PO DAILY Levothyroxine Sodium [Synthroid] 125 mcg PO DAILY risperiDONE [RisperDAL] 0.5 mg PO HS Prevalite 1 packet PO DAILY Acetaminophen [Tylenol Extra Strength] 500 - 1,000 mg PO DIRECTED PRN PRN Reason: Pain Atorvastatin [Lipitor] 80 mg PO HS Clopidogrel [Plavix] 75 mg PO HS Memantine [Namenda] 10 mg PO DAILY Discharge Medication List Fexofenadine HCl [Anali Allergy] 180 mg PO DAILY PRN 08/23/16 [History] Furosemide [Lasix] 20 mg PO DAILY 08/23/16 [History] Potassium Chloride [Klor-Con 10] 20 meq PO QAM 08/23/16 [History] amLODIPine BESYLATE [Norvasc] 10 mg PO DAILY 08/23/16 [History] Sertraline [Zoloft] 25 mg PO DAILY 03/13/17 [History] Levothyroxine Sodium [Synthroid] 125 mcg PO DAILY 03/10/18 [History] lisinopriL 40 mg PO DAILY 03/10/18 [History] risperiDONE [RisperDAL] 0.5 mg PO HS 03/10/18 [History] Acetaminophen [Tylenol Extra Strength] 500 - 1,000 mg PO DIRECTED PRN 01/27/20 [History] Atorvastatin [Lipitor] 80 mg PO HS 01/27/20 [History] Clopidogrel [Plavix] 75 mg PO HS 01/27/20 [History] Memantine [Namenda] 10 mg PO DAILY 01/27/20 [History] Prevalite 1 packet PO DAILY 01/27/20 [History] Follow up Appointment(s)/Referral(s): Vicente Pa DO [STAFF PHYSICIAN] - 10 Days (Please call to make follow up appointment) Patient Instructions/Handouts: Carotid Artery Stent Placement (DC) Activity/Diet/Wound Care/Special Instructions: use walker as needed may shower 02/05/20 keep steri strips on right side of neck in place, they will fall off on their own Discharge Disposition: HOME SELF-CARE
[2020-02-04] MEDS ORDERED: CLOPIDOGREL 75 MG TAB PO SCH (12:00)
[2020-02-04 12:03] VITALS: BP 99/70; PULSE 56; RESP 18; TEMP 97.6
--- NOTE | 2020-02-04 12:28 | P.PN ---
Subjective Progress Note Date: 02/04/20 79-year-old here patient underwent a transplant carotid artery revascularization. The patient is postop day #1. She is doing well. Surgical incision dry clean and intact. No acute neurologic deficits. No hoarseness. No chest pain. BP is under good control. No bradycardia. No hematoma. The patient has not find that can be removed and the patient will be discharged home today. The patient was started on Plavix.outpatient medications of been ordered resume. She has dementia and she is currently on Namenda. Objective - Vital Signs Vital signs: Vital Signs Temp 97.6 F 02/04/20 12:00 Pulse 56 L 02/04/20 12:00 Resp 18 02/04/20 12:00 BP 99/70 02/04/20 12:00 Pulse Ox 93 L 02/04/20 12:00 Intake & Output 02/03/20 02/04/20 02/04/20 18:59 06:59 18:59 Intake Total 1865 1203 112 Output Total 100 200 0 Balance 1765 1003 112 Weight 84.6 kg 77 kg Intake: IV 1865 803 112 0.9 Normal Saline for 15 3 12 pressure bag @ 3 ml/hr Sodium Chloride 0.9% 1, 500 800 100 000 ml @ 100 mls/hr IV . Q10H [facility] Rx#:[id number] Intake, IV Titration 400 Amount Sodium Chloride 0.9% 1, 400 000 ml @ 100 mls/hr IV . Q10H [facility] Rx#:[id number] Output: Urine 100 200 0 Other: Voiding Method Toilet # Voids 1 1 ABP, PAP, CO, CI - Last Documented Arterial Blood Pressure 126/49 - Exam The patient appeared well nourished and normally developed. Vital signs as documented. Head exam is unremarkable. No scleral icterus or corneal arcus noted. Neck is without jugular venous distension, thyromegaly, or carotid bruits. Carotid upstrokes are brisk bilaterally. The surgical wound site over the right neck areas dry clean and intact. No hematoma formation. Lungs are clear to auscultation and percussion. Cardiac exam reveals the PMI to be normally sized and situated. Rhythm is regular. First and second heart sounds normal. No murmurs, rubs or gallops. Abdominal exam reveals normal bowel sounds, no masses, no organomegaly and no aortic enlargement. Extremities are no nedematous and both femoral and pedal pulses are normal.Examination of the skin revealed no evidence of significant rashes, suspicious appearing nevi or other concerning lesions.Neurologically, the patient is awake and alert and the patient does not have any focal neurological deficit. Cranial nerves are essentially intact. - Labs CBC & Chem 7: 02/04/20 05:00 02/04/20 05:00 Labs: Abnormal Lab Results - Last 24 Hours (Table) 02/04/20 Range/Units 05:00 Chloride 114 H (98-107) mmol/L Calcium 8.2 L (8.4-10.2) mg/dL Assessment and Plan Plan: 1 Asymptomatic right internal carotid artery stenosis greater than 90%, the patient is status post Right Transcarotid artery revascularization with stenting, postop day # 1 2 history of breast cancer, left-sided with a previous lumpectomy and axillary lymph node dissection followed by radiation therapy 3 hypertension 4 hyperlipidemia 5 dementia, mild 6 hypothyroidism 7 osteoarthritis 8 acute kidney injury with drop in a GFR down to 39, and the renal function from today's improvement in the creatinine is down to 0.8. Plan Discontinue the arterial line Patient is doing well and hemodynamically stable. No neurologic complications Resume all medication Renal function is improved Possible discharge home today once cleared by vascular surgery.
== END 2020-02-04 14:32 | disposition home or self-care (01) ==
LOC: CATHCVL 07:50 → 2SICU 13:25 → CATHCVL 02-04 14:32
PROVIDERS: ATTEND Surgery
DX: I65.21 Occlusion and stenosis of right carotid artery (principal); I10 Essential (primary) hypertension; E78.5 Hyperlipidemia, unspecified; F03.90 Unspecified dementia, unspecified severity, without behavioral disturbance, psychotic disturbance, mood disturbance, and anxiety; E03.9 Hypothyroidism, unspecified; M19.90 Unspecified osteoarthritis, unspecified site; Z85.3 Personal history of malignant neoplasm of breast; Z98.890 Other specified postprocedural states; Z92.3 Personal history of irradiation; F41.9 Anxiety disorder, unspecified; H91.90 Unspecified hearing loss, unspecified ear; Z82.49 Family history of ischemic heart disease and other diseases of the circulatory system; Z79.02 Long term (current) use of antithrombotics/antiplatelets; Z79.890 Hormone replacement therapy; Z79.899 Other long term (current) drug therapy; Z97.2 Presence of dental prosthetic device (complete) (partial); Z88.5 Allergy status to narcotic agent
CPT/HCPCS: 76937; 37215; 86900; 86901; 80053; 80048; 85025 ×2; 86850; C1725; C1769 ×3; C1876; C1894; C1884; J2720; J1644; J0690; J2001; J3010; J2270; J2370; Q9967; 37216

== ENCOUNTER 2020-02-27 14:25 | Observation (INO) | payer MEDICARE, BC ==
[2020-02-27] MEDS ORDERED: SODIUM CHLORIDE 0.9% 1,000 ML IV STA (15:36)
[2020-02-27] MEDS ORDERED: DIPH,PERTUS(ACELL)TETVAC-LF 0.5 ML VIAL IM ONE (15:43)
--- NOTE | 2020-02-27 15:43 | ED ---
General Adult HPI - General Chief complaint: Fall Stated complaint: Fall Head Injury Time Seen by Provider: 02/27/20 15:00 Source: patient, family, EMS, RN notes reviewed Mode of arrival: EMS Limitations: physical limitation - History of Present Illness Initial comments: Patient is a pleasant 79-year-old female presenting to the emergency department following a fall. Incident occurred sometime today. Patient was in the laundry room. Patient is unclear why or how she fell. Patient is unclear whether or not she passed out or lost consciousness. Patient states she does have a headache, moderate. Otherwise no complaints. No neck or back pain. No chest pain or dyspnea. No abdominal pain. No weakness. No area of injury other than the head. Patient does take Plavix. - Related Data Home Medications Medication Instructions Recorded Confirmed Fexofenadine HCl [Anali Allergy] 180 mg PO DAILY PRN 08/23/16 02/27/20 Furosemide [Lasix] 20 mg PO DAILY 08/23/16 02/27/20 Potassium Chloride [Klor-Con 10] 20 meq PO DAILY 08/23/16 02/27/20 amLODIPine BESYLATE [Norvasc] 10 mg PO DAILY 08/23/16 02/27/20 Sertraline [Zoloft] 25 mg PO DAILY 03/13/17 02/27/20 lisinopriL 40 mg PO DAILY 03/10/18 02/27/20 risperiDONE [RisperDAL] 0.5 mg PO HS 03/10/18 02/27/20 Acetaminophen [Tylenol Extra 500 - 1,000 mg PO Q6H PRN 01/27/20 02/27/20 Strength] Atorvastatin [Lipitor] 80 mg PO HS 01/27/20 02/27/20 Clopidogrel [Plavix] 75 mg PO HS 01/27/20 02/27/20 Memantine [Namenda] 20 mg PO HS 01/27/20 02/27/20 Prevalite 1 packet PO DAILY 01/27/20 02/27/20 Levothyroxine Sodium [Synthroid] 125 mcg PO DAILY 02/27/20 02/27/20 Allergies Allergy/AdvReac Type Severity Reaction Status Date / Time meperidine [From Demerol] AdvReac Nausea & Verified 02/27/20 16:30 Vomiting Review of Systems ROS Statement: Those systems with pertinent positive or pertinent negative responses have been documented in the HPI. ROS Other: All systems not noted in ROS Statement are negative. Constitutional: Denies: fever Eyes: Denies: eye pain ENT: Denies: ear pain Respiratory: Denies: cough Cardiovascular: Denies: chest pain Endocrine: Denies: fatigue Gastrointestinal: Denies: abdominal pain Genitourinary: Denies: dysuria Musculoskeletal: Denies: back pain Skin: Denies: rash Neurological: Reports: as per HPI, headache. Denies: weakness, confusion Past Medical History Past Medical History: Cancer, Dementia, Hearing Disorder / Deafness, Hyperlipidemia, Hypertension, Osteoarthritis (OA), Thyroid Disorder, Vascular Disorder Additional Past Medical History / Comment(s): History of bilateral breast cancer, dementia, hearing impairment and the patient wears hearing aids, carotid artery stenosis symptomatic on the right in the order of 90%, history of vertigo, hypertension, hyperlipidemia, hypothyroidism and osteoarthritis. History of Any Multi-Drug Resistant Organisms: None Reported Past Surgical History: Appendectomy, Breast Surgery, Section, Orthopedic Surgery Additional Past Surgical History / Comment(s): "breast reduction" - portion of left breast and right breast removed, C-S x4, "tailbone removed" Past Anesthesia/Blood Transfusion Reactions: No Reported Reaction Past Psychological History: Anxiety Smoking Status: Never smoker, Unknown if ever smoked Past Alcohol Use History: None Reported Past Drug Use History: None Reported - Past Family History Sister(s) Family Medical History: Cancer Additional Family Medical History / Comment(s): Patient's sister had leukemia Brother(s) Family Medical History: Coronary Artery Disease (CAD) General Exam Limitations: physical limitation General appearance: alert, in no apparent distress Head exam: Present: other (Scalp laceration with dried blood) Eye exam: Present: normal appearance, PERRL, EOMI. Absent: nystagmus ENT exam: Present: normal oropharynx Neck exam: Present: normal inspection, tenderness (Mild diffuse C-spine tenderness) Respiratory exam: Present: normal lung sounds bilaterally Cardiovascular Exam: Present: regular rate, normal rhythm Expanded Peripheral pulses: 2+: Radial (R), Radial (L), Dorsalis Pedis (R), Dorsalis Pedis (L) GI/Abdominal exam: Present: soft. Absent: tenderness Extremities exam: Present: normal inspection. Absent: pedal edema, calf tenderness Back exam: Present: normal inspection. Absent: tenderness Neurological exam: Present: alert, oriented X3, CN II-XII intact. Absent: motor sensory deficit Psychiatric exam: Present: normal affect, normal mood Skin exam: Present: normal color Course Vital Signs 02/27/20 02/27/20 14:48 16:00 Temperature 98.2 F Pulse Rate 89 78 Respiratory 18 18 Rate Blood Pressure 182/75 175/86 O2 Sat by Pulse 93 L 96 Oximetry EKG Findings - EKG Comments: EKG Findings:: Normal sinus rhythm 95. CO 160. QRS 70. QT 48. QTC 437. Normal axis. Normal QRS. No acute ST change. Procedures - Laceration Laceration #1 Consent Obtained: verbal consent Indication: laceration Site: scalp Size (cm): 12 Description: flap Depth: simple, single layer Pre-repair: wound explored, irrigated extensively Type of Sutures: other (ugo) Number of Sutures: 16 Patient Tolerated Procedure: well, no complications Medical Decision Making - Medical Decision Making Patient reevaluated. Patient and family updated. Case discussed with practitioner Tony, covering with Dr. Murrieta, covering for Dr. Gomez, who will admit. - Lab Data Result diagrams: 02/27/20 16:59 02/27/20 16:11 Lab Results 02/27/20 02/27/20 02/27/20 Range/Units 16:11 16:11 16:43 WBC (3.8-10.6) k/uL RBC (3.80-5.40) m/uL Hgb (11.4-16.0) gm/dL Hct (34.0-46.0) % MCV (80.0-100.0) fL MCH (25.0-35.0) pg MCHC (31.0-37.0) g/dL RDW (11.5-15.5) % Plt Count (150-450) k/uL MPV Neutrophils % % Lymphocytes % % Monocytes % % Eosinophils % % Basophils % % Neutrophils # (1.3-7.7) k/uL Lymphocytes # (1.0-4.8) k/uL Monocytes # (0-1.0) k/uL Eosinophils # (0-0.7) k/uL Basophils # (0-0.2) k/uL Sodium 137 (137-145) mmol/L Potassium 5.8 H (3.5-5.1) mmol/L Chloride 107 (98-107) mmol/L Carbon Dioxide 22 (22-30) mmol/L Anion Gap 8 mmol/L BUN 25 H (7-17) mg/dL Creatinine 1.28 H (0.52-1.04) mg/dL Est GFR (CKD-EPI)AfAm 46 (>60 ml/min/1.73 sqM) Est GFR (CKD-EPI)NonAf 40 (>60 ml/min/1.73 sqM) Glucose 107 H (74-99) mg/dL POC Glucose (mg/dL) 99 (75-99) mg/dL POC Glu [employer] ID Sreekanth Leiva Calcium 9.2 (8.4-10.2) mg/dL Total Bilirubin 0.7 (0.2-1.3) mg/dL AST 38 H (14-36) U/L ALT 22 (4-34) U/L Alkaline Phosphatase 110 (38-126) U/L Troponin I <0.012 (0.000-0.034) ng/mL Total Protein 7.6 (6.3-8.2) g/dL Albumin 4.3 (3.5-5.0) g/dL 02/27/20 Range/Units 16:59 WBC 7.6 (3.8-10.6) k/uL RBC 4.24 (3.80-5.40) m/uL Hgb 12.7 (11.4-16.0) gm/dL Hct 38.9 (34.0-46.0) % MCV 91.7 (80.0-100.0) fL MCH 29.9 (25.0-35.0) pg MCHC 32.6 (31.0-37.0) g/dL RDW 12.7 (11.5-15.5) % Plt Count 150 (150-450) k/uL MPV 7.7 Neutrophils % 79 % Lymphocytes % 14 % Monocytes % 5 % Eosinophils % 1 % Basophils % 0 % Neutrophils # 6.0 (1.3-7.7) k/uL Lymphocytes # 1.0 (1.0-4.8) k/uL Monocytes # 0.4 (0-1.0) k/uL Eosinophils # 0.1 (0-0.7) k/uL Basophils # 0.0 (0-0.2) k/uL Sodium (137-145) mmol/L Potassium (3.5-5.1) mmol/L Chloride (98-107) mmol/L Carbon Dioxide (22-30) mmol/L Anion Gap mmol/L BUN (7-17) mg/dL Creatinine (0.52-1.04) mg/dL Est GFR (CKD-EPI)AfAm (>60 ml/min/1.73 sqM) Est GFR (CKD-EPI)NonAf (>60 ml/min/1.73 sqM) Glucose (74-99) mg/dL POC Glucose (mg/dL) (75-99) mg/dL POC Glu [employer] Pre[employer]er ID Calcium (8.4-10.2) mg/dL Total Bilirubin (0.2-1.3) mg/dL AST (14-36) U/L ALT (4-34) U/L Alkaline Phosphatase (38-126) U/L Troponin I (0.000-0.034) ng/mL Total Protein (6.3-8.2) g/dL Albumin (3.5-5.0) g/dL - Radiology Data Radiology results: report reviewed (Computed tomography scan brain and C-spine reveal no acute process), image reviewed (Chest x-ray reveals no acute process) Disposition Clinical Impression: Syncope, Laceration of scalp Disposition: ADMITTED IP TO THIS HOSP Is patient prescribed a controlled substance at d/c from ED?: No Referrals: Sedrick Burgess MD [Primary Care Provider] - 1-2 days Decision Time: 17:53
[2020-02-27 16:42] LABS: Albumin 4.3 g/dL (3.5-5.0); Calcium 9.2 mg/dL (8.4-10.2); Total Bilirubin 0.7 mg/dL (0.2-1.3); Total Protein 7.6 g/dL (6.3-8.2)
[2020-02-27 16:44] LABS: Glucose,Whole Blood 99 mg/dL (75-99)
--- NOTE | 2020-02-27 16:54 | CT ---
EXAMINATION TYPE: CT brain pili bah con DATE OF EXAM: 02/27/2020 COMPARISON: 03/13/2017 CT brain HISTORY: Syncope. Fall and hit head. Neck pain. CT DLP: mGycm Automated exposure control for dose reduction was used. There is cerebral cortical atrophy. There is no mass effect nor midline shift. There is no sign of in tracranial hemorrhage. Cervical vertebra have normal alignment. There is disc space narrowing from C3 to C7 with spurring of the endplates. The facet joints are intact. Skull base is intact. There is evidence for some multilevel mild cervical bony spinal stenosis from C3 3 to C6. There is 2 cm area of white matter hypodensity right occipital lobe. Calvarium is intact. IMPRESSION: Cerebral atrophy and chronic small vessel ischemia. Brain unchanged compared to old exam. No acute in tracranial abnormality. Cervical multilevel spondylotic changes. No fracture seen.
[2020-02-27 17:06] LABS: Basophils % (A) 0 %; Eosinophils # (A) 0.1 k/uL (0-0.7); Eosinophils % (A) 1 %; HCT 38.9 % (34.0-46.0); HGB 12.7 gm/dL (11.4-16.0); Lymphocytes % (A) 14 %; MCH 29.9 pg (25.0-35.0); MCHC 32.6 g/dL (31.0-37.0); MCV 91.7 fL (80.0-100.0); Mean Platelet Volume 7.7; Monocytes # (A) 0.4 k/uL (0-1.0); Monocytes % (A) 5 %; Neutrophils % (A) 79 %; Platelet Count 150 k/uL (150-450); RBC 4.24 m/uL (3.80-5.40); RDW 12.7 % (11.5-15.5); WBC 7.6 k/uL (3.8-10.6)
[2020-02-27 17:13] LABS: Potassium 5.8 mmol/L (3.5-5.1)
--- NOTE | 2020-02-27 17:15 | XR ---
EXAMINATION TYPE: XR chest 2V DATE OF EXAM: 02/27/2020 COMPARISON: NONE HISTORY: Syncope TECHNIQUE: 2 views FINDINGS: There is no heart failure nor confluent pneumonic infiltrate. Costophrenic angles are clear . There are chest leads. There are clips at the left axilla. IMPRESSION: No active cardiopulmonary disease. Normal heart.
[2020-02-27 17:40] LABS: Prothrombin Time 10.2 sec (9.0-12.0)
[2020-02-27 17:52] LABS: Partial Thromboplastin Time 19.3 sec (22.0-30.0)
[2020-02-27] MEDS ORDERED: NITROGLYCERIN SL TABS 0.4 MG TAB SUBLINGUAL PRN (17:54)
[2020-02-27 22:44] LABS: Appearance,Urine Clear (Clear); Bilirubin,Urine Negative (Negative); Blood,Urine Trace (Negative); Color,Urine Light Yellow; Glucose,Urine (UA) Negative (Negative); Ketones,Urine Negative (Negative); Leukocyte Esterase,Urine Small (Negative); Mucus,Urine Rare /hpf; Nitrite,Urine Negative (Negative); Protein,Urine Negative (Negative); RBC,Urine 3 /hpf (0-5); Squamous Epithelial Cell,Urine 2 /hpf (0-4); Urobilinogen,Urine <2.0 mg/dL (<2.0); WBC,Urine 4 /hpf (0-5)
[2020-02-27] MEDS ORDERED: ACETAMINOPHEN TAB 500 MG TAB PO PRN (23:40)
[2020-02-28] MEDS ORDERED: LEVOTHYROXINE 125 MCG TAB PO SCH (06:30)
[2020-02-28 08:24] VITALS: RESP 16
[2020-02-28] MEDS ORDERED: amLODIPine 10 MG TAB PO SCH (09:00)
[2020-02-28] MEDS ORDERED: FUROSEMIDE 20 MG TAB PO SCH (09:00)
[2020-02-28] MEDS ORDERED: SERTRALINE 25 MG TAB PO SCH (09:00)
--- NOTE | 2020-02-28 09:20 | P.CRDCN ---
History of Present Illness Consult date: 02/28/20 Consult reason: sycope Chief complaint: Syncope History of present illness: This is a pleasant 79-year-old female with documented history of hypothyroidism, hypertension, hyperlipidemia, mild dementia, who presented to the hospital following a syncopal episode. According to the patient, she was doing 2 loads of laundry, sat down in a chair in the laundry room waiting for the laundry to finish, the next thing she recalls was awaking up in the emergency room. She states that she had no symptoms prior to this event, she had no dizziness, no palpitations, no chest discomfort, no difficulty in breathing. Patient was alert and oriented upon wakening. CAT scan of the head and spine was performed which revealed cerebral atrophy with chronic small vessel ischemia, no acute abnormality noted. Chest x-ray did not show any active disease, EKG showed a normal sinus rhythm with no acute changes. Temperature 97.7, blood pressure 150/70 with a heart rate in the 70s, 94% on room air. White blood cell count 7.6, hemoglobin 12.7, platelet count 150. Sodium 137, potassium 5.8, BUN 25 and creatinine 1.2, troponins were negative 3. The patient's home medications included Synthroid, Respiridol, lisinopril 40 mg daily, Norvasc 10 mg daily, Zoloft, potassium 20 mEq daily, Namenda, Lasix 20 mg daily, Anali. At the time of my examination this morning, patient overall feels well, denies any dizziness or lightheadedness. No chest discomfort, no palpitations. Past Medical History Past Medical History: Cancer, Dementia, Hearing Disorder / Deafness, Hyperlipidemia, Hypertension, Osteoarthritis (OA), Thyroid Disorder, Vascular Disorder Additional Past Medical History / Comment(s): History of bilateral breast cancer, dementia, hearing impairment and the patient wears hearing aids, carotid artery stenosis symptomatic on the right in the order of 90%, history of vertigo, hypertension, hyperlipidemia, hypothyroidism and osteoarthritis. History of Any Multi-Drug Resistant Organisms: None Reported Past Surgical History: Appendectomy, Breast Surgery, Section, Orthopedic Surgery Additional Past Surgical History / Comment(s): "breast reduction" - portion of left breast and right breast removed, C-S x4, "tailbone removed" Past Anesthesia/Blood Transfusion Reactions: No Reported Reaction Past Psychological History: Anxiety Additional Psychological History / Comment(s): lives with the family. No animal exposures. Retired. No experience. Travel history Smoking Status: Never smoker, Unknown if ever smoked Past Alcohol Use History: None Reported Past Drug Use History: None Reported - Past Family History Sister(s) Family Medical History: Cancer Additional Family Medical History / Comment(s): Patient's sister had leukemia Brother(s) Family Medical History: Coronary Artery Disease (CAD) Medications and Allergies Home Medications Medication Instructions Recorded Confirmed Type Fexofenadine HCl [Anali Allergy] 180 mg PO DAILY PRN 08/23/16 02/27/20 History Furosemide [Lasix] 20 mg PO DAILY 08/23/16 02/27/20 History Potassium Chloride [Klor-Con 10] 20 meq PO DAILY 08/23/16 02/27/20 History amLODIPine BESYLATE [Norvasc] 10 mg PO DAILY 08/23/16 02/27/20 History Sertraline [Zoloft] 25 mg PO DAILY 03/13/17 02/27/20 History lisinopriL 40 mg PO DAILY 03/10/18 02/27/20 History risperiDONE [RisperDAL] 0.5 mg PO HS 03/10/18 02/27/20 History Acetaminophen [Tylenol Extra 500 - 1,000 mg PO Q6H PRN 01/27/20 02/27/20 History Strength] Atorvastatin [Lipitor] 80 mg PO HS 01/27/20 02/27/20 History Clopidogrel [Plavix] 75 mg PO HS 01/27/20 02/27/20 History Memantine [Namenda] 20 mg PO HS 01/27/20 02/27/20 History Prevalite 1 packet PO DAILY 01/27/20 02/27/20 History Levothyroxine Sodium [Synthroid] 125 mcg PO DAILY 02/27/20 02/27/20 History Allergies Allergy/AdvReac Type Severity Reaction Status Date / Time meperidine [From Demerol] AdvReac Nausea & Verified 02/27/20 16:30 Vomiting Physical Exam Vitals: Vital Signs Temp Pulse Pulse Pulse Pulse Pulse Resp 02/28/20 08:23 97.9 F 72 16 02/28/20 08:07 72 87 70 02/28/20 04:10 97.7 F 72 02/27/20 22:09 97.8 F 80 02/27/20 19:45 97.8 F 80 02/27/20 19:00 98.1 F 71 20 02/27/20 18:00 77 18 02/27/20 17:45 71 20 02/27/20 17:00 80 20 02/27/20 16:00 78 18 02/27/20 14:48 98.2 F 89 18 BP BP BP BP BP Pulse Ox 02/28/20 08:23 150/73 96 02/28/20 08:07 150/77 132/76 159/76 02/28/20 04:10 151/78 94 L 02/27/20 22:09 151/77 94 L 02/27/20 19:45 151/77 94 L 02/27/20 19:00 148/72 96 02/27/20 18:00 142/60 99 02/27/20 17:45 155/78 96 02/27/20 17:00 170/89 98 02/27/20 16:00 175/86 96 02/27/20 14:48 182/75 93 L Intake and Output 02/27/20 02/28/20 02/28/20 22:59 06:59 14:59 Output Total 600 625 Balance -600 -625 Output: Urine 600 625 Other: Voiding Method Toilet Toilet Toilet # Voids 1 1 Weight 86.863 kg PHYSICAL EXAMINATION: GENERAL: 79-year-old female in no acute distress at the time of my examination HEENT: Head is atraumatic, normocephalic. Pupils equal, round. Sclera anicteric. Conjunctiva are clear. Mucous membranes of the mouth are moist. Ne ck is supple. There is no elevated jugular venous pressure. No carotid bruit is heard. HEART EXAMINATION: S1 and S2 systolic murmur is heard CHEST EXAMINATION: Lungs are clear to auscultation and precussion. No chest wall tenderness is noted on palpation or with deep breathing. ABDOMEN: Soft, nontender. Bowel sounds are heard. No organomegaly noted. EXTREMITIES: 2+ peripheral pulses with no evidence of peripheral edema and no calf tenderness noted. NEUROLOGIC patient is awake, alert and oriented 3 . Results 02/27/20 16:59 02/27/20 16:11 Cardiac Enzymes 02/27/20 02/27/2002/26/20 Range/Units 16:11 16:11 18:56 AST 38 H (14-36) U/L Troponin I <0.012 <0.012 (0.000-0.034) ng/mL 02/27/20 Range/Units 22:17 AST (14-36) U/L Troponin I <0.012 (0.000-0.034) ng/mL Coagulation 02/27/20 Range/Units 17:10 PT 10.2 (9.0-12.0) sec APTT 19.3 L (22.0-30.0) sec CBC 02/27/20 Range/Units 16:59 WBC 7.6 (3.8-10.6) k/uL RBC 4.24 (3.80-5.40) m/uL Hgb 12.7 (11.4-16.0) gm/dL Hct 38.9 (34.0-46.0) % Plt Count 150 (150-450) k/uL Comprehensive Metabolic Panel 02/27/20 Range/Units 16:11 Sodium 137 (137-145) mmol/L Potassium 5.8 H (3.5-5.1) mmol/L Chloride 107 (98-107) mmol/L Carbon Dioxide 22 (22-30) mmol/L BUN 25 H (7-17) mg/dL Creatinine 1.28 H (0.52-1.04) mg/dL Glucose 107 H (74-99) mg/dL Calcium 9.2 (8.4-10.2) mg/dL AST 38 H (14-36) U/L ALT 22 (4-34) U/L Alkaline Phosphatase 110 (38-126) U/L Total Protein 7.6 (6.3-8.2) g/dL Albumin 4.3 (3.5-5.0) g/dL Current Medications Generic Name Dose Route Start Last Admin Trade Name Freq PRN Reason Stop Dose Admin Acetaminophen 500 - 1,000 mg 02/27/20 23:40 02/28/20 04:21 Acetaminophen Tab 500 Mg Tab PO 500 mg Q6H PRN Administration Pain Amlodipine Besylate 10 mg 02/28/20 09:00 02/28/20 08:55 Amlodipine 10 Mg Tab PO 10 mg DAILY NISSA Administration Atorvastatin Calcium 80 mg 02/28/20 21:00 Atorvastatin 80 Mg Tab PO HS NISSA Clopidogrel Bisulfate 75 mg 02/28/20 21:00 Clopidogrel 75 Mg Tab PO HS NISSA Furosemide 20 mg 02/28/20 09:00 02/28/20 08:55 Furosemide 20 Mg Tab PO 20 mg DAILY NISSA Administration Levothyroxine Sodium 125 mcg 02/28/20 06:30 02/28/20 05:54 Levothyroxine 125 Mcg Tab PO 125 mcg DAILY@0630 NISSA Administration Memantine 20 mg 02/28/20 21:00 Memantine 10 Mg Tab PO HS NISSA Nitroglycerin 0.4 mg 02/27/20 17:54 Nitroglycerin Sl Tabs 0.4 Mg Tab SUBLINGUAL Q5M PRN Chest Pain Risperidone 0.5 mg 02/28/20 21:00 Risperidone 0.5 Mg Tab PO HS NISSA Sertraline HCl 25 mg 02/28/20 09:00 02/28/20 08:55 Sertraline 25 Mg Tab PO 25 mg DAILY NISSA Administration Intake and Output 02/27/20 02/28/20 02/28/20 22:59 06:59 14:59 Output Total 600 625 Balance -600 -625 Output: Urine 600 625 Other: Voiding Method Toilet Toilet Toilet # Voids 1 1 Weight 86.863 kg 02/27/20 16:59 02/27/20 16:11 EKG Interpretations (text) EKG shows a normal sinus rhythm with no acute changes. Assessment and Plan Plan: Assessment and plan #1 syncope, rule out cardiac causes #2 hypertension #3 hyperlipidemia #4 hypothyroidism #5 mild dementia #6 hyperkalemia Plan We will obtain an echocardiogram with Doppler study. We will also check orthostatic heart rate and blood pressure every shift. We will continue to monitor the patient for any tachycardia or bradycardia arrhythmias. Lisinopril and potassium currently on hold because of elevated potassium level on admissi on. Further recommendations to follow. DNP note has been reviewed, I agree with a documented findings and plan of care. Patient was seen and examined.
[2020-02-28 12:50] LABS: Cholesterol 143 mg/dL (<200); HDL Cholesterol 76 mg/dL (40-60); LDL Cholesterol,Calculated 54 mg/dL (0-99); Triglycerides 64 mg/dL (<150)
--- NOTE | 2020-02-28 14:05 | P.HPIM ---
History of Present Illness 79-year-old of present female came in after a syncopal episode patient doesn't erythema over the vent patient was a nondraining her clothes and next thing she knows is that she is in the ER. Patient denied any dizziness palpitations. Patient denied any chest discomfort. Patient had a computed tomography scan of the head which showed cerebral atrophy. Patient has positive orthostatic vitals patient has mildly elevated potassium with some hemolysis. Patient is on risperidone at nighttime patient's present creatinine is 1.28 baseline is within normal limits Review of Systems REVIEW OF SYSTEMS: CONSTITUTIONAL: No fever, no malaise, no fatigue. HEENT: No recent visual problems or hearing problems. Denied any sore throat. CARDIOVASCULAR: No chest pain, orthopnea, PND, no palpitations. PULMONARY: No shortness of breath, no cough, no hemoptysis. GASTROINTESTINAL: No diarrhea, no nausea, no vomiting, no abdominal pain. NEUROLOGICAL: No headaches, no weakness, no numbness. HEMATOLOGICAL: Denies any bleeding or petechiae. GENITOURINARY: Denies any burning micturition, frequency, or urgency. MUSCULOSKELETAL/RHEUMATOLOGICAL: Denies any joint pain, swelling, or any muscle pain. ENDOCRINE: Denies any polyuria or polydipsia. The rest of the 14-point review of systems is negative. Past Medical History Past Medical History: Cancer, Dementia, Hearing Disorder / Deafness, Hyperlipidemia, Hypertension, Osteoarthritis (OA), Thyroid Disorder, Vascular Disorder Additional Past Medical History / Comment(s): History of bilateral breast cancer, dementia, hearing impairment and the patient wears hearing aids, carotid artery stenosis symptomatic on the right in the order of 90%, history of vertigo, hypertension, hyperlipidemia, hypothyroidism and osteoarthritis. History of Any Multi-Drug Resistant Organisms: None Reported Past Surgical History: Appendectomy, Breast Surgery, Section, Orthopedic Surgery Additional Past Surgical History / Comment(s): "breast reduction" - portion of left breast and right breast removed, C-S x4, "tailbone removed" Past Anesthesia/Blood Transfusion Reactions: No Reported Reaction Past Psychological History: Anxiety Additional Psychological History / Comment(s): lives with the family. No animal exposures. Retired. No experience. Travel history Smoking Status: Never smoker, Unknown if ever smoked Past Alcohol Use History: None Reported Past Drug Use History: None Reported - Past Family History Sister(s) Family Medical History: Cancer Additional Family Medical History / Comment(s): Patient's sister had leukemia Brother(s) Family Medical History: Coronary Artery Disease (CAD) Medications and Allergies Home Medications Medication Instructions Recorded Confirmed Type Fexofenadine HCl [Anali Allergy] 180 mg PO DAILY PRN 08/23/16 02/27/20 History amLODIPine BESYLATE [Norvasc] 10 mg PO DAILY 08/23/16 02/27/20 History Sertraline [Zoloft] 25 mg PO DAILY 03/13/17 02/27/20 History risperiDONE [RisperDAL] 0.5 mg PO HS 03/10/18 02/27/20 History Acetaminophen [Tylenol Extra 500 - 1,000 mg PO Q6H PRN 01/27/20 02/27/20 History Strength] Atorvastatin [Lipitor] 80 mg PO HS 01/27/20 02/27/20 History Clopidogrel [Plavix] 75 mg PO HS 01/27/20 02/27/20 History Memantine [Namenda] 20 mg PO HS 01/27/20 02/27/20 History Prevalite 1 packet PO DAILY 01/27/20 02/27/20 History Levothyroxine Sodium [Synthroid] 125 mcg PO DAILY 02/27/20 02/27/20 History lisinopriL 20 mg PO DAILY #0 02/28/20 02/27/20 Rx Allergies Allergy/AdvReac Type Severity Reaction Status Date / Time meperidine [From Demerol] AdvReac Nausea & Verified 02/27/20 16:30 Vomiting Physical Exam Vitals: Vital Signs Temp Pulse Pulse Pulse Pulse Pulse Resp 02/28/20 08:23 97.9 F 72 16 02/28/20 08:07 72 87 70 02/28/20 04:10 97.7 F 72 02/27/20 22:09 97.8 F 80 02/27/20 19:45 97.8 F 80 02/27/20 19:00 98.1 F 71 20 02/27/20 18:00 77 18 02/27/20 17:45 71 20 02/27/20 17:00 80 20 02/27/20 16:00 78 18 02/27/20 14:48 98.2 F 89 18 BP BP BP BP BP Pulse Ox 02/28/20 08:23 150/73 96 02/28/20 08:07 150/77 132/76 159/76 02/28/20 04:10 151/78 94 L 02/27/20 22:09 151/77 94 L 02/27/20 19:45 151/77 94 L 02/27/20 19:00 148/72 96 02/27/20 18:00 142/60 99 02/27/20 17:45 155/78 96 02/27/20 17:00 170/89 98 02/27/20 16:00 175/86 96 02/27/20 14:48 182/75 93 L Intake and Output 02/27/20 02/28/20 02/28/20 22:59 06:59 14:59 Output Total 600 625 Balance -600 -625 Output: Urine 600 625 Other: Voiding Method Toilet Toilet Toilet # Voids 1 1 Weight 86.863 kg PHYSICAL EXAMINATION: GENERAL: The patient is alert and oriented x3, not in any acute distress. Well developed, well nourished. HEENT: Pupils are round and equally reacting to light. EOMI. No scleral icterus. No conjunctival pallor. Normocephalic, patient has his laceration on the scalp with ugo on the scalp. No pharyngeal erythema. No thyromegaly. CARDIOVASCULAR: S1 and S2 present. No murmurs, rubs, or gallops. PULMONARY: Chest is clear to auscultation, no wheezing or crackles. ABDOMEN: Soft, nontender, nondistended, normoactive bowel sounds. No palpable organomegaly. MUSCULOSKELETAL: No joint swelling or deformity. EXTREMITIES: No cyanosis, clubbing, or pedal edema. NEUROLOGICAL: Gross neurological examination did not reveal any focal deficits. SKIN: No rashes. Results CBC & Chem 7: 02/27/20 16:59 02/27/20 16:11 Labs: Abnormal Lab Results - Last 24 Hours (Table) 02/27/20 02/27/20 02/27/20 Range/Units 16:11 17:10 22:30 APTT 19.3 L (22.0-30.0) sec Potassium 5.8 H (3.5-5.1) mmol/L BUN 25 H (7-17) mg/dL Creatinine 1.28 H (0.52-1.04) mg/dL Glucose 107 H (74-99) mg/dL AST 38 H (14-36) U/L HDL Cholesterol (40-60) mg/dL Urine Blood Trace H (Negative) Ur Leukocyte Esterase Small H (Negative) Urine Mucus Rare H (None) /hpf 02/28/20 Range/Units 11:49 APTT (22.0-30.0) sec Potassium (3.5-5.1) mmol/L BUN (7-17) mg/dL Creatinine (0.52-1.04) mg/dL Glucose (74-99) mg/dL AST (14-36) U/L HDL Cholesterol 76 H (40-60) mg/dL Urine Blood (Negative) Ur Leukocyte Esterase (Negative) Urine Mucus (None) /hpf Thrombosis Risk Factor Assmnt - Choose All That Apply Each Factor Represents 1 point: Obesity (BMI >25) Thrombosis Risk Factor Assessment Total Risk Factor Score: 1 Thrombosis Risk Factor Assessment Level: Low Risk Assessment and Plan Plan: -Syncope: Patient is also orthostatic vitals further probably has hyperlipidemia Lasix will be discontinued patient will be continued on IV fluids. Was evaluated by cardiology will undergo an echocardiogram. Patient had normal sinus rhythm since yesterday and telemetry. If cleared by cardiology patient can be discharged after hydration. -Hypothyroidism -Hypertension continue the amlodipine will cut down the dose of lisinopril because of hyperkalemia. -Hyperkalemia: Secondary to renal failure, hemolysis, lisinopril -Acute renal failure: Probably secondary to intravascular depletion holding off on PHAN inhibitor will cut down the dose of lisinopril upon discharge discontinue diuretics upon discharge -Dementia -Hypothyroidism Patient will be discharged if cleared by cardiology
--- NOTE | 2020-02-28 14:06 | P.DS ---
Providers Date of admission: 02/27/20 17:59 Attending physician: Moses Murrieta Consults: 02/27/20 17:54 Consult Physician Urgent Consulting Provider: Julius Yoder Consult Reason/Comments: syncope Do you want consulting provider notified?: Yes Primary care physician: Sedrick Burgess MD Hospital Course: Refer to [facility] for further details Plan - Discharge Summary New Discharge Prescriptions: Continue amLODIPine BESYLATE [Norvasc] 10 mg PO DAILY Fexofenadine HCl [Anali Allergy] 180 mg PO DAILY PRN PRN Reason: Allergy Symptoms Sertraline [Zoloft] 25 mg PO DAILY risperiDONE [RisperDAL] 0.5 mg PO HS Prevalite 1 packet PO DAILY Acetaminophen [Tylenol Extra Strength] 500 - 1,000 mg PO Q6H PRN PRN Reason: Pain Atorvastatin [Lipitor] 80 mg PO HS Clopidogrel [Plavix] 75 mg PO HS Memantine [Namenda] 20 mg PO HS Levothyroxine Sodium [Synthroid] 125 mcg PO DAILY Changed lisinopriL 20 mg PO DAILY #0 Discontinued Furosemide [Lasix] 20 mg PO DAILY Potassium Chloride [Klor-Con 10] 20 meq PO DAILY Discharge Medication List Fexofenadine HCl [Aanli Allergy] 180 mg PO DAILY PRN 08/23/16 [History] amLODIPine BESYLATE [Norvasc] 10 mg PO DAILY 08/23/16 [History] Sertraline [Zoloft] 25 mg PO DAILY 03/13/17 [History] risperiDONE [RisperDAL] 0.5 mg PO HS 03/10/18 [History] Acetaminophen [Tylenol Extra Strength] 500 - 1,000 mg PO Q6H PRN 01/27/20 [History] Atorvastatin [Lipitor] 80 mg PO HS 01/27/20 [History] Clopidogrel [Plavix] 75 mg PO HS 01/27/20 [History] Memantine [Namenda] 20 mg PO HS 01/27/20 [History] Prevalite 1 packet PO DAILY 01/27/20 [History] Levothyroxine Sodium [Synthroid] 125 mcg PO DAILY 02/27/20 [History] lisinopriL 20 mg PO DAILY #0 02/28/20 [Rx] Follow up Appointment(s)/Referral(s): Sedrick Burgess MD [Primary Care Provider] - 3 Days Discharge Disposition: HOME SELF-CARE
[2020-02-28 15:12] VITALS: BP 133/72; PULSE 70; TEMP 98.4
[2020-02-28] MEDS ORDERED: ATORVASTATIN 80 MG TAB PO SCH (21:00)
[2020-02-28] MEDS ORDERED: risperiDONE 0.5 MG TAB PO SCH (21:00)
[2020-02-28] MEDS ORDERED: CLOPIDOGREL 75 MG TAB PO SCH (21:00)
[2020-02-28] MEDS ORDERED: MEMANTINE 10 MG TAB PO SCH (21:00)
--- NOTE | 2020-02-29 13:31 | ECHOF ---
Referral Reason:syncope MEASUREMENTS -------- HEIGHT: 157.5 cm WEIGHT: 86.6 kg BP: 159/76 IVSd: 1.3 cm (0.6 - 1.1) LVIDd: 3.0 cm (3.9 - 5.3) LVPWd: 1.2 cm (0.6 - 1.1) EDV(Teich): 34 ml IVSs: 1.1 cm LVIDs: 2.2 cm LVPWs: 1.4 cm %IVS Thck: -14 % ESV(Teich): 16 ml EF(Teich): 55 % %FS: 27 % SV(Teich): 19 ml LALs A4C: 5.8 cm LAAs A4C: 25.2 cm LAESV A-L A4C: 93 ml LAESV MOD A4C: 89 ml LALs A2C: 5.4 cm LAAs A2C: 17.1 cm LAESV A-L A2C: 45 ml LAESV MOD A2C: 41 ml LAESV(A-L): 67 ml LAESV Index (A-L): 35.90 ml/m MV E Ishaan: 0.64 m/s MV DecT: 265 ms MV Dec Swisher: 2.4 m/s MV A Ishaan: 1.09 m/s MV E/A Ratio: 0.59 MV PHT: 77 ms LVOT Vmax: 1.00 m/s LVOT maxP.00 mmHg AV Vmax: 2.01 m/s AV maxP.20 mmHg AV Vmax: 2.11 m/s AV Vmean: 1.60 m/s AV maxP.74 mmHg AV meanP.02 mmHg AV Env.Ti: 299 ms AV VTI: 47.9 cm TR Vmax: 3.10 m/s TR maxP.45 mmHg RAP: 5.00 mmHg RVSP: 43.45 mmHg FINDINGS -------- Sinus rhythm. This was a technically adequate study. This was a technically difficult study with suboptimal parasternal views. The left ventricular size is normal. There is mild concentric left ventricular hypertrophy. Overa ll left ventricular systolic function is normal with, an EF between 55 - 60 %. The RV was not well visualized. LA is moderately dilated 34-39 ml/m2 The right atrium was not well visualized. Interatrial and interventricular septum intact. The aortic valve was not well visualized. There is no evidence of aortic regurgitation. There is mild aortic stenosis present. Peak/mean gradient across the Aortic Valve is 17.74mmHg / 11.02mmHg. Moderate mitral regurgitation is present. Moderate tricuspid regurgitation present. There is moderate pulmonary hypertension. The right marek tricular systolic pressure, as measured by Doppler, is 43.45mmHg. The pulmonic valve was not well visualized. IVC Not well visulized. There is no pericardial effusion. CONCLUSIONS -------- 1. The left ventricular size is normal. 2. There is mild concentric left ventricular hypertrophy. 3. Overall left ventricular systolic function is normal with, an EF between 55 - 60 %. 4. LA is moderately dilated 34-39 ml/m2 5. There is mild aortic stenosis present. 6. Peak/mean gradient across the Aortic Valve is 17.74mmHg / 11.02mmHg. 7. Moderate mitral regurgitation is present. 8. Moderate tricuspid regurgitation present. 9. There is moderate pulmonary hypertension. 10. The right ventricular systolic pressure, as measured by Doppler, is 43.45mmHg. TRENCHING MACHINE OPERATOR: Latisha Denise RDCS
== END 2020-02-28 16:40 | disposition home or self-care (01) ==
LOC: EC 14:25 → 1SOBS 17:59
PROVIDERS: ADMIT Hospitalist; ATTEND Hospitalist
DX: R55 Syncope and collapse (principal); E87.5 Hyperkalemia; N17.9 Acute kidney failure, unspecified; H91.90 Unspecified hearing loss, unspecified ear; S01.01XA Laceration without foreign body of scalp, initial encounter; E78.5 Hyperlipidemia, unspecified; I10 Essential (primary) hypertension; M19.90 Unspecified osteoarthritis, unspecified site; E03.9 Hypothyroidism, unspecified; I65.21 Occlusion and stenosis of right carotid artery; F41.9 Anxiety disorder, unspecified; G31.9 Degenerative disease of nervous system, unspecified; F02.81 Dementia in other diseases classified elsewhere, unspecified severity, with behavioral disturbance; E66.9 Obesity, unspecified; I67.82 Cerebral ischemia; Z79.02 Long term (current) use of antithrombotics/antiplatelets; Z79.899 Other long term (current) drug therapy; Z79.890 Hormone replacement therapy; Z85.3 Personal history of malignant neoplasm of breast; Z88.5 Allergy status to narcotic agent; Z86.79 Personal history of other diseases of the circulatory system; Z97.4 Presence of external hearing-aid; Z90.49 Acquired absence of other specified parts of digestive tract; Z98.890 Other specified postprocedural states; Z68.35 Body mass index [BMI] 35.0-35.9, adult; Z80.6 Family history of leukemia; Z82.49 Family history of ischemic heart disease and other diseases of the circulatory system; W19.XXXA Unspecified fall, initial encounter
CPT/HCPCS: 93005 ×2; 96361 ×2; 12004; 90471; 96360; 99285; 36415; 93306; 80061; 80053; 84484; 85025; 85610; 85730; 81001; 71046; 72125; 70450; 90715; G0378 ×2

== ENCOUNTER → 2020-03-23 | Outpatient (CLI) | payer MEDICARE, BC ==
--- NOTE | 2020-03-23 11:59 | MM ---
Reason for exam: additional evaluation requested from prior study. Last mammogram was performed 1 year and 1 month ago. History: Patient is postmenopausal and has history of breast cancer at age 51. Benign excisional biopsy of the right breast, 2011. Reductions of both breasts, 2004. Lumpectomy of the left breast, 1990. Radiation therapy of the left breast, 1990. 2 benign excisional biopsies of the left breast. Physical Findings: Nurse Summary: 1.5cm nodule in the left breast at 1 o'clock (nurse shelbi). MG 3D Diag Mammo W/Cad LIZ Bilateral CC and MLO view(s) were taken. Prior study comparison: February 11, 2019, bilateral MG 3d diag mammo w/cad LIZ. February 03, 2018, bilateral MG 3d diag mammo w/cad LIZ. Finding: There are stable coarse heterogeneous, grouped/clustered calcifications in the right breast. Right distortion present previously. Left BB barber calcification. These results were verbally communicated with the patient and result sheet given to the patient on 03/23/20. ASSESSMENT: Probably benign, BI-RAD 3 RECOMMENDATION: Follow-up diagnostic mammogram of the right breast in 3 months.
== END | disposition home or self-care (01) ==
LOC: RADMAMWWP 10:40
PROVIDERS: ATTEND Family Medicine
DX: R92.8 Other abnormal and inconclusive findings on diagnostic imaging of breast (principal); Z85.3 Personal history of malignant neoplasm of breast
CPT/HCPCS: 77066; G0279; 77062

== ENCOUNTER → 2020-06-22 | Outpatient (CLI) | payer MEDICARE, BC ==
--- NOTE | 2020-06-25 13:54 | MM ---
Reason for exam: additional evaluation requested from abnormal screening. Last mammogram was performed 3 months ago. History: Patient is postmenopausal and has history of breast cancer at age 51. Benign excisional biopsy of the right breast, 2011. Reductions of both breasts, 2004. Lumpectomy of the left breast, 1990. Radiation therapy of the left breast, 1990. 2 benign excisional biopsies of the left breast. Physical Findings: Nurse Summary: 0.5cm nodule in the right breast at 9 o'clock (nurse ms). MG 3D Diag Mammo W/Cad RT CC and MLO view(s) were taken of the right breast. Prior study comparison: March 23, 2020, bilateral MG 3d diag mammo w/cad LIZ. February 11, 2019, bilateral MG 3d diag mammo w/cad LIZ. Finding #1: Stable architectural distortion in the upper outer quadrant of the right breast at area of concern presumed scar. Finding #2: There are typically benign dystrophic, round calcifications in the right breast. There is a chronic nodularity in the right breast. There is no new dominant lesion. Asymmetric breast tissue right inferior breast, stable. These results were verbally communicated with the patient and result sheet given to the patient on 06/22/20. ASSESSMENT: Benign, BI-RAD 2 RECOMMENDATION: Follow-up diagnostic mammogram of both breasts in 9 months. Back on schedule for March 2021.
== END | disposition home or self-care (01) ==
LOC: RADMAMWWP 10:32
PROVIDERS: ATTEND Family Medicine
DX: R92.1 Mammographic calcification found on diagnostic imaging of breast (principal); Z85.3 Personal history of malignant neoplasm of breast; Z78.0 Asymptomatic menopausal state
CPT/HCPCS: 77065; G0279; 77061

== ENCOUNTER → 2020-08-07 | Outpatient (CLI) | payer MEDICARE, BC ==
--- NOTE | 2020-08-08 06:19 | CT ---
EXAMINATION TYPE: CT brain wo/w con DATE OF EXAM: 08/07/2020 COMPARISON: CT brain February 27, 2020 HISTORY: confusion, dizziness, falls, headaches CT DLP: 2054 mGycm Automated exposure control for dose reduction was used. CONTRAST: CT scan of the head is performed without and with IV Contrast, patient injected with 80cc mL of Isovu e 300. FINDINGS: Noncontrast images show no acute intracranial hemorrhage or midline shift. Mild to moderate diffuse v entricular and sulcal prominence redemonstrated. Moderate to advanced low attenuation in the deep and periventricular white matter again seen. The globes are intact and the visualized sinuses are clear. Postcontrast images show no suspicious enhancing mass. No suspicious opacification mastoid air cells . IMPRESSION: Mild to moderate diffuse cerebral atrophy and moderate to advanced chronic small vessel i schemic change redemonstrated. No suspicious enhancing masses noted.
== END | disposition home or self-care (01) ==
LOC: RADCTMAIN 15:46
PROVIDERS: ATTEND Family Medicine
DX: G31.9 Degenerative disease of nervous system, unspecified (principal); I67.82 Cerebral ischemia
CPT/HCPCS: 82565; 84520; 70470; 36415; Q9967

== ENCOUNTER → 2021-01-04 | Outpatient (CLI) | payer MEDICARE, BC ==
--- NOTE | 2021-01-04 13:29 | XR ---
Bilateral knees HISTORY: Pain 2 views of each knee submitted No comparisons There is joint space loss and spurring in the medial compartments, patellofemoral joints. Alignment i s maintained. Bone mineralization is reduced. There is chondrocalcinosis present. Probable vascular c alcifications noted incidentally in the left thigh. 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
== END | disposition home or self-care (01) ==
LOC: RADXRMAIN 11:42
PROVIDERS: ATTEND Physician Assistant Medical
DX: M17.0 Bilateral primary osteoarthritis of knee (principal)

== ENCOUNTER → 2021-03-25 | Outpatient (CLI) | payer MEDICARE, BC ==
--- NOTE | 2021-03-26 09:30 | MM ---
Reason for exam: additional evaluation requested from prior study. Last mammogram was performed 9 months ago. History: Patient is postmenopausal and has history of breast cancer at age 51. Benign excisional biopsy of the right breast, 2011. Reductions of both breasts, 2004. Lumpectomy of the left breast, 1990. Radiation therapy of the left breast, 1990. 2 benign excisional biopsies of the left breast. Physical Findings: Nurse Summary: 1.5cm nodule in the left breast at 1 o'clock (nurse hector). MG 3D Diag Mammo W/Cad LIZ Bilateral CC and MLO view(s) were taken. Prior study comparison: June 22, 2020, right breast MG 3d diag mammo w/cad RT. March 23, 2020, bilateral MG 3d diag mammo w/cad LIZ. There are scattered fibroglandular densities. Decreased size left breast decreased. There are benign appearing round, vascular, dystrophic calcifications bilaterally. There is chronic nodularity bilaterally. Asymmetric breast tissue in the right upper outer quadrant, stable. There is no discrete abnormality. These results were verbally communicated with the patient and result sheet given to the patient on 03/25/21. ASSESSMENT: Benign, BI-RAD 2 RECOMMENDATION: Follow-up diagnostic mammogram of both breasts in 1 year.
== END | disposition home or self-care (01) ==
LOC: RADMAMWWP 14:07
PROVIDERS: ATTEND Family Medicine
DX: R92.8 Other abnormal and inconclusive findings on diagnostic imaging of breast (principal); R92.1 Mammographic calcification found on diagnostic imaging of breast; Z85.3 Personal history of malignant neoplasm of breast; Z78.0 Asymptomatic menopausal state
CPT/HCPCS: 77066; G0279; 77062

== ENCOUNTER 2021-05-07 20:08 | Inpatient (IN) | payer MEDICARE, BC ==
[2021-05-07 21:17] LABS: Basophils % (A) 0 %; Eosinophils # (A) 0.1 k/uL (0-0.7); Eosinophils % (A) 1 %; HGB 12.9 gm/dL (11.4-16.0); Lymphocytes # (A) 2.2 k/uL (1.0-4.8); Lymphocytes % (A) 28 %; MCH 30.2 pg (25.0-35.0); MCHC 32.3 g/dL (31.0-37.0); MCV 93.5 fL (80.0-100.0); Mean Platelet Volume 8.8; Monocytes # (A) 0.5 k/uL (0-1.0); Monocytes % (A) 7 %; Neutrophils # (A) 5.1 k/uL (1.3-7.7); Neutrophils % (A) 63 %; Platelet Count 196 k/uL (150-450); RBC 4.28 m/uL (3.80-5.40); RDW 13.1 % (11.5-15.5)
--- NOTE | 2021-05-07 21:24 | XR ---
EXAMINATION TYPE: XR chest 2V DATE OF EXAM: 05/07/2021 COMPARISON: 02/27/2020 HISTORY: Dysrhythmia TECHNIQUE: 2 view FINDINGS: There is no heart failure nor confluent pneumonic infiltrate. Costophrenic angles are clear . There are chest leads. There are clips at the left axilla. Bony thorax is intact. IMPRESSION: No active cardiopulmonary disease. No change.
--- NOTE | 2021-05-07 21:25 | XR ---
EXAMINATION TYPE: XR elbow complete LT DATE OF EXAM: 05/07/2021 COMPARISON: NONE HISTORY: Elbow pain TECHNIQUE: 3 views FINDINGS: There is no evidence of fracture nor dislocation. Joint spaces appear normal. There is no s ign of elbow joint effusion. IMPRESSION: Negative left elbow exam.
[2021-05-07 21:30] LABS: ALT 20 U/L (4-34); AST 33 U/L (14-36); African American GFR (CKD) 15 (>60 ml/min/1.73 sqM); Albumin 3.2 g/dL (3.5-5.0); Alkaline Phosphatase 74 U/L (38-126); Anion Gap 8 mmol/L; Blood Urea Nitrogen 50 mg/dL (7-17); Calcium 9.1 mg/dL (8.4-10.2); Carbon Dioxide 26 mmol/L (22-30); Chloride 100 mmol/L (98-107); Glucose 100 mg/dL (74-99); Magnesium 1.8 mg/dL (1.6-2.3); Non-African American GFR(CKD) 13 (>60 ml/min/1.73 sqM); Potassium 3.1 mmol/L (3.5-5.1); Sodium 134 mmol/L (137-145); Total Bilirubin 0.6 mg/dL (0.2-1.3); Total Protein 6.2 g/dL (6.3-8.2)
[2021-05-07 21:32] LABS: Prothrombin Time 10.6 sec (9.0-12.0)
--- NOTE | 2021-05-07 21:46 | CT ---
EXAMINATION TYPE: CT brain pili bah con DATE OF EXAM: 05/07/2021 COMPARISON: 02/27/2020 HISTORY: Fall, head injury CT DLP: 1330.8 mGycm Automated exposure control for dose reduction was used. There is cerebral cortical atrophy. There is no mass effect or midline shift. There is no sign of int racranial hemorrhage. Calvarium is intact. Skull base is intact and there is normal aeration of the m astoid sinuses. There is mild enlargement of the ventricles. There is some hypodensity in the periven tricular white matter. Cervical vertebrae are fairly normal alignment. There is degenerative disc space narrowing from C3 to C7 with spurring of the endplates. Posterior elements are intact. Facet joints are intact. IMPRESSION: Cerebral atrophy. Chronic small vessel ischemia. Mild hydrocephalus. No change. Cervical multilevel spondylotic changes. No acute bony abnormality. No change.
[2021-05-07 22:09] LABS: Partial Thromboplastin Time 21.3 sec (22.0-30.0)
[2021-05-07 22:35] LABS: T4, Free (Free Thyroxine) 2.58 ng/dL (0.78-2.19)
[2021-05-07] MEDS ORDERED: POTASSIUM CHLORIDE ER 20 MEQ TAB.ER PO STA (23:24)
[2021-05-07] MEDS ORDERED: ASPIRIN 325 MG TAB PO STA (23:25)
--- NOTE | 2021-05-07 23:27 | ED ---
Arrhythmia/Palpitations HPI - General Chief Complaint: Arrhythmia/Palpitations Stated Complaint: Syncope Source: patient, EMS Mode of arrival: EMS Limitations: no limitations - History of Present Illness Initial Comments: Patient is an 81-year-old female past history of dementia, hypertension, breast cancer who presents to the emergency department after she had a syncopal episode at home. Son is at bedside and provides the history. States that the patient lives alone . Family had found out that the patient had sustained 2 falls this week. Fall several days ago was unwitnessed and patient sustained injury to her left elbow. Second fall happened yesterday and was also unwitnessed. Patient fell and hit the right side of her head and suffered an abrasion. Today the p renzo's son was over her house and made her dinner. He states that after she ate she slumped over and went unresponsive. He called EMS. Upon transport to the hospital they were able to capture that the patient was in a flutter with a rate of 150. She spontaneously converted prior to hospital arrival. She did not injure herself with today's syncope. Denies previous history of irregular heart rhythm for cardiac disease. The patient denies any chest pain or shortness of breath. No headache or visual changes. No recent illnesses. Remainder of HPI is limited due to the patient's advanced dementia - Related Data Home Medications Medication Instructions Recorded Confirmed Fexofenadine HCl [Anali Allergy] 180 mg PO DAILY PRN 08/23/16 05/07/21 Sertraline [Zoloft] 25 mg PO DAILY 03/13/17 05/07/21 risperiDONE [RisperDAL] 0.5 mg PO HS 03/10/18 05/07/21 Acetaminophen [Tylenol Extra 1,000 mg PO BID PRN 01/27/20 05/07/21 Strength] Atorvastatin [Lipitor] 80 mg PO HS 01/27/20 05/07/21 Clopidogrel [Plavix] 75 mg PO HS 01/27/20 05/07/21 Memantine [Namenda] 20 mg PO DAILY 01/27/20 05/07/21 Diclofenac Sodium Gel [Voltaren 1 applic TOPICAL QID PRN 05/07/21 05/07/21 Gel] Doxycycline Hyclate 100 mg PO HS 05/07/21 05/07/21 Levothyroxine Sodium [Synthroid] 150 mcg PO DAILY 05/07/21 05/07/21 Meclizine HCl [Bonine Chew Tab] 25 mg PO TID PRN 05/07/21 05/07/21 lisinopriL 20 mg PO HS 05/07/21 05/07/21 Allergies Allergy/AdvReac Type Severity Reaction Status Date / Time meperidine [From Demerol] AdvReac Nausea & Verified 05/07/21 21:29 Vomiting Review of Systems ROS Statement: Those systems with pertinent positive or pertinent negative responses have been documented in the HPI. ROS Other: All systems not noted in ROS Statement are negative. Past Medical History Past Medical History: Cancer, Dementia, Hearing Disorder / Deafness, Hyperlipidemia, Hypertension, Osteoarthritis (OA), Thyroid Disorder, Vascular Disorder Additional Past Medical History / Comment(s): History of bilateral breast cancer, dementia, hearing impairment and the patient wears hearing aids, carotid artery stenosis symptomatic on the right in the order of 90%, history of ve rtigo, hypertension, hyperlipidemia, hypothyroidism and osteoarthritis. History of Any Multi-Drug Resistant Organisms: None Reported Past Surgical History: Appendectomy, Breast Surgery, Section, Orthopedic Surgery Additional Past Surgical History / Comment(s): "breast reduction" - portion of left breast and right breast removed, C-S x4, "tailbone removed" Past Anesthesia/Blood Transfusion Reactions: No Reported Reaction Past Psychological History: Anxiety Smoking Status: Never smoker, Unknown if ever smoked - Past Family History Sister(s) Family Medical History: Cancer Additional Family Medical History / Comment(s): Patient's sister had leukemia Brother(s) Family Medical History: Coronary Artery Disease (CAD) General Exam Limitations: no limitations Course Vital Signs 05/07/21 20:15 Temperature 97.9 F Pulse Rate 92 Respiratory 16 Rate Blood Pressure 100/65 O2 Sat by Pulse 98 Oximetry EKG Findings - EKG Comments: EKG Findings:: Rhythm strip obtain from EKG demonstrates a narrow complex tachycardia concerning for a flutter. EKG done at 2021 demonstrates normal sinus rhythm with a ventricular rate of 89. OK 140. QRS 78. QTC of 467. No acute ST segment elevations or depressions. Repeat EKG done at 2354 demonstrates A. fib with a rate of 141. QRS 90. QTC of 505. Some ST depression in V3 through V6. No acute ST segment elevations Medical Decision Making - Medical Decision Making Upon arrival patient's placed into room 5. There are history of physical exam is performed. Patient placed on continuous pulse ox and cardiac monitoring. 12-lead EKG is obtained which demonstrates a normal sinus rhythm. Laboratory studies are conducted. Patient has a creatinine of 3.1. Patient's normal baseline is around 1.5. Son does report that the patient has had issues with diarrhea over the past week. Magnesium 1.8. Troponin is 0.3-1. Free T4 elevated at 2.58. Urinalysis does demonstrate bacteria. Dose of Rocephin ordered as well as an aspirin. The patient's magnesium and potassium is replaced. She is also started on normal saline at 100 mL/h. Spoke with Dr. Yoder in regards to the patient's. Recommend holding off on heparinization at this time as the patient is not in A. fib and has a history of multiple falls. Spoke with Dr. James in regards to the admission. Will place cardiology on consult. While awaiting a bed on the floor the patient does go into A. fib. I did order a Cardizem drip however the patient does convert without medication administration. She did remain in stable condition awaiting a bed - Lab Data Result diagrams: 05/07/21 21:08 05/07/21 21:08 Lab Results 05/07/21 05/07/21 05/07/21 Range/Units 21:08 21:08 21:08 WBC 8.0 (3.8-10.6) k/uL RBC 4.28 (3.80-5.40) m/uL Hgb 12.9 (11.4-16.0) gm/dL Hct 40.0 (34.0-46.0) % MCV 93.5 (80.0-100.0) fL MCH 30.2 (25.0-35.0) pg MCHC 32.3 (31.0-37.0) g/dL RDW 13.1 (11.5-15.5) % Plt Count 196 (150-450) k/uL MPV 8.8 Neutrophils % 63 % Lymphocytes % 28 % Monocytes % 7 % Eosinophils % 1 % Basophils % 0 % Neutrophils # 5.1 (1.3-7.7) k/uL Lymphocytes # 2.2 (1.0-4.8) k/uL Monocytes # 0.5 (0-1.0) k/uL Eosinophils # 0.1 (0-0.7) k/uL Basophils # 0.0 (0-0.2) k/uL PT 10.6 (9.0-12.0) sec INR 1.0 (<1.2) APTT 21.3 L (22.0-30.0) sec Sodium 134 L (137-145) mmol/L Potassium 3.1 L (3.5-5.1) mmol/L Chloride 100 (98-107) mmol/L Carbon Dioxide 26 (22-30) mmol/L Anion Gap 8 mmol/L BUN 50 H (7-17) mg/dL Creatinine 3.12 H (0.52-1.04) mg/dL Est GFR (CKD-EPI)AfAm 15 (>60 ml/min/1.73 sqM) Est GFR (CKD-EPI)NonAf 13 (>60 ml/min/1.73 sqM) Glucose 100 H (74-99) mg/dL Calcium 9.1 (8.4-10.2) mg/dL Magnesium 1.8 (1.6-2.3) mg/dL Total Bilirubin 0.6 (0.2-1.3) mg/dL AST 33 (14-36) U/L ALT 20 (4-34) U/L Alkaline Phosphatase 74 (38-126) U/L Troponin I (0.000-0.034) ng/mL NT-Pro-B Natriuret Pep pg/mL Total Protein 6.2 L (6.3-8.2) g/dL Albumin 3.2 L (3.5-5.0) g/dL TSH 0.028 L (0.465-4.680) mIU/L Free T4 2.58 H (0.78-2.19) ng/dL Urine Color Urine Appearance (Clear) Urine pH (5.0-8.0) Ur Specific [place] (1.001-1.035) Urine Protein (Negative) Urine Glucose (UA) (Negative) Urine Ketones (Negative) Urine Blood (Negative) Urine Nitrite (Negative) Urine Bilirubin (Negative) Urine Urobilinogen (<2.0) mg/dL Ur Leukocyte Esterase (Negative) Urine RBC (0-5) /hpf Urine WBC (0-5) /hpf Urine WBC Clumps (None) /hpf Ur Squamous Epith Cells (0-4) /hpf Urine Bacteria (None) /hpf Hyaline Casts (0-2) /lpf Urine Mucus (None) /hpf 05/07/21 05/07/21 05/07/21 Range/Units 21:08 21:08 23:29 WBC (3.8-10.6) k/uL RBC (3.80-5.40) m/uL Hgb (11.4-16.0) gm/dL Hct (34.0-46.0) % MCV (80.0-100.0) fL MCH (25.0-35.0) pg MCHC (31.0-37.0) g/dL RDW (11.5-15.5) % Plt Count (150-450) k/uL MPV Neutrophils % % Lymphocytes % % Monocytes % % Eosinophils % % Basophils % % Neutrophils # (1.3-7.7) k/uL Lymphocytes # (1.0-4.8) k/uL Monocytes # (0-1.0) k/uL Eosinophils # (0-0.7) k/uL Basophils # (0-0.2) k/uL PT (9.0-12.0) sec INR (<1.2) APTT (22.0-30.0) sec Sodium (137-145) mmol/L Potassium (3.5-5.1) mmol/L Chloride (98-107) mmol/L Carbon Dioxide (22-30) mmol/L Anion Gap mmol/L BUN (7-17) mg/dL Creatinine (0.52-1.04) mg/dL Est GFR (CKD-EPI)AfAm (>60 ml/min/1.73 sqM) Est GFR (CKD-EPI)NonAf (>60 ml/min/1.73 sqM) Glucose (74-99) mg/dL Calcium (8.4-10.2) mg/dL Magnesium (1.6-2.3) mg/dL Total Bilirubin (0.2-1.3) mg/dL AST (14-36) U/L ALT (4-34) U/L Alkaline Phosphatase (38-126) U/L Troponin I 0.321 H* (0.000-0.034) ng/mL NT-Pro-B Natriuret Pep 3790 pg/mL Total Protein (6.3-8.2) g/dL Albumin (3.5-5.0) g/dL TSH (0.465-4.680) mIU/L Free T4 (0.78-2.19) ng/dL Urine Color Yellow Urine Appearance Cloudy H (Clear) Urine pH 5.0 (5.0-8.0) Ur Specific [place] 1.021 (1.001-1.035) Urine Protein Trace H (Negative) Urine Glucose (UA) Negative (Negative) Urine Ketones Negative (Negative) Urine Blood Negative (Negative) Urine Nitrite Negative (Negative) Urine Bilirubin 1+ H (Negative) Urine Urobilinogen 2.0 (<2.0) mg/dL Ur Leukocyte Esterase Moderate H (Negative) Urine RBC 3 (0-5) /hpf Urine WBC 15 H (0-5) /hpf Urine WBC Clumps Rare H (None) /hpf Ur Squamous Epith Cells 5 H (0-4) /hpf Urine Bacteria Rare H (None) /hpf Hyaline Casts 58 H (0-2) /lpf Urine Mucus Rare H (None) /hpf Disposition Clinical Impression: Atrial flutter, NSTEMI (non-ST elevated myocardial infarction), Syncope and collapse, Multiple falls, MANN (acute kidney injury) Disposition: ADMITTED IP TO THIS [facility] Condition: Stable Is patient prescribed a controlled substance at d/c from ED?: No Decision to Admit Reason: Admit from EC Decision Date: 05/07/21 Decision Time: 23:27
[2021-05-07] MEDS ORDERED: NALOXONE 0.4 MG/ML 1 ML VIAL IV PRN (23:29)
[2021-05-07] MEDS ORDERED: POTASSIUM CHLORIDE 20 MEQ in WATER FOR INJECTION 1 100ML.BAG IVPB ONE (23:45)
[2021-05-07 23:51] LABS: Appearance,Urine Cloudy (Clear); Bacteria,Urine Rare /hpf; Bilirubin,Urine 1+ (Negative); Blood,Urine Negative (Negative); Color,Urine Yellow; Glucose,Urine (UA) Negative (Negative); Hyaline Casts,Urine 58 /lpf (0-2); Ketones,Urine Negative (Negative); Leukocyte Esterase,Urine Moderate (Negative); Mucus,Urine Rare /hpf; Nitrite,Urine Negative (Negative); Protein,Urine Trace (Negative); RBC,Urine 3 /hpf (0-5); Specific Gravity,Urine 1.021 (1.001-1.035); Squamous Epithelial Cell,Urine 5 /hpf (0-4); WBC,Urine 15 /hpf (0-5)
[2021-05-08] MEDS ORDERED: cefTRIAXone IN SWFI 1,000 MG/10 ML SYRINGE IVP STA
[2021-05-08] MEDS ORDERED: DILTIAZEM DRIP BOLUS FROM BAG 1 MG SOLN IV ONE (00:01)
[2021-05-08] MEDS ORDERED: MAGNESIUM SULFATE-D5W PMX 1 GM in DEXTROSE/WATER 1 100ML.BAG IVPB ONE (00:02)
[2021-05-08] MEDS: SODIUM CHLORIDE 0.9% 1,000 ML IV SCH ×3 (00:09→21:47)
[2021-05-08] MEDS ORDERED: DILTIAZEM 125 MG in SODIUM CHLORIDE 0.9% 100 ML IV SCH (00:15)
[2021-05-08] MEDS ORDERED: ACETAMINOPHEN TAB 500 MG TAB PO PRN (01:26)
[2021-05-08 02:57] LABS: Basophils % (A) 1 %; Eosinophils # (A) 0.1 k/uL (0-0.7); Eosinophils % (A) 1 %; HCT 38.4 % (34.0-46.0); HGB 12.3 gm/dL (11.4-16.0); Lymphocytes # (A) 1.8 k/uL (1.0-4.8); Lymphocytes % (A) 30 %; MCH 30.5 pg (25.0-35.0); MCV 95.3 fL (80.0-100.0); Mean Platelet Volume 8.8; Monocytes # (A) 0.3 k/uL (0-1.0); Monocytes % (A) 6 %; Neutrophils # (A) 3.7 k/uL (1.3-7.7); Neutrophils % (A) 61 %; Platelet Count 191 k/uL (150-450); RBC 4.02 m/uL (3.80-5.40); RDW 13.5 % (11.5-15.5); WBC 6.1 k/uL (3.8-10.6)
[2021-05-08 03:28] LABS: Calcium 8.7 mg/dL (8.4-10.2); Potassium 3.6 mmol/L (3.5-5.1)
[2021-05-08] MEDS: SERTRALINE 25 MG TAB PO SCH (08:14)
[2021-05-08] MEDS ORDERED: MEMANTINE 10 MG TAB PO SCH (09:00)
[2021-05-08] MEDS ORDERED: LORATADINE 10 MG TAB PO PRN (09:00)
--- NOTE | 2021-05-08 10:43 | ECHOF ---
Referral Reason:Lv function, syncope MEASUREMENTS -------- HEIGHT: 157.5 cm WEIGHT: 76.7 kg BP: RVIDd: 3.2 cm (< 3.3) IVSd: 1.2 cm (0.6 - 1.1) LVIDd: 3.9 cm (3.9 - 5.3) LVPWd: 1.3 cm (0.6 - 1.1) IVSs: 1.6 cm LVIDs: 3.5 cm LVPWs: 1.4 cm LA Diam: 4.2 cm (2.7 - 3.8) Ao Diam: 2.6 cm (2.0 - 3.7) AV Cusp: 1.3 cm (1.5 - 2.6) MV EXCURSION: 14.577 mm (> 18.000) MV EF SLOPE: 49 mm/s (70 - 150) EPSS: 1.1 cm AV maxP.05 mmHg AV meanP.30 mmHg RAP: 5.00 mmHg RVSP: 21.00 mmHg FINDINGS -------- Sinus rhythm. Pt has Dementia. The left ventricular size is normal. There is mild concentric left ventricular hypertrophy. Overa ll left ventricular systolic function is low-normal with, an EF between 50 - 55 %. The right ventricle is normal in size. The left atrial size is normal. The right atrial size is normal. There is mild aortic stenosis present. Peak/mean gradient across the Aortic Valve is 15.05mmHg / 7. 30mmHg. Mild mitral regurgitation is present. Mild tricuspid regurgitation present. Right ventricular systolic pressure is normal at < 35 mmHg. The pulmonic valve was not well visualized. There is no pericardial effusion. CONCLUSIONS -------- 1. Pt has Dementia. 2. The left ventricular size is normal. 3. There is mild concentric left ventricular hypertrophy. 4. Overall left ventricular systolic function is low-normal with, an EF between 50 - 55 %. 5. The right ventricle is normal in size. 6. The left atrial size is normal. 7. The right atrial size is normal. 8. There is mild aortic stenosis present. 9. Peak/mean gradient across the Aortic Valve is 15.05mmHg / 7.30mmHg. 10. Mild mitral regurgitation is present. 11. Mild tricuspid regurgitation present. 12. The pulmonic valve was not well visualized. 13. There is no pericardial effusion. COMPLEX DIRECTOR: Kelly Cao RDCS
[2021-05-08] MEDS ORDERED: PANTOPRAZOLE 40 MG/10 ML VIAL IVP SCH (11:15)
--- NOTE | 2021-05-08 11:21 | P.CRDCN ---
History of Present Illness Consult date: 05/08/21 History of present illness: HISTORY OF PRESENT ILLNESS: This is a 81-year-old female with a past medical history significant for hypertension, hyperlipidemia, hypothyroidism, carotid stenosis with TCAR performed by vascular surgery in 2019, and dementia. 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 We have been asked to see the patient in consultation for syncope. Patient examined at the bedside in the emergency room. The patient has a history of dementia and is unable to provide any history. She is unsure of where she is at the time of my examination and is unsure of what happened yesterday leading to her coming to the hospital. There is no family at the bedside. According to the ER physician note, the patient has been having recur rent falls at home recently that have been unwitnessed. Yesterday the patient's son was at her house and they were having dinner when she slumped over in the chair and went unresponsive. The patient was brought to the hospital for further evaluation. The patient was found to be in A. fib with RVR. The patient does not have a documented history of atrial fibrillation. The patient converted spontaneously to sinus mechanism. She is maintaining sinus mechanism this morning with a heart rate in the 50s to 60s. The patient currently denies any dizziness or lightheadedness. She denies any chest pain or pressure. She denies any shortness of breath. The patient was also found to have an acute kidney injury with a creatinine around 3. According to the ER documentation, the patient has been having diarrhea for the past week per the patient's family. EKG reveals A. fib with RVR. Repeat EKG reveals sinus mechanism with a heart rate in the 80s with nonspecific ST-T wave changes Chest xray negative for acute process Laboratory data: WBC 6.1. Hemoglobin 12.3. Platelet count 191. Sodium 134. Potassium 3.1. BUN 50. Creatinine 3.12. Troponin 0.321. 0.282. 0.269. ProBNP 3790. TSH 0.028. Free T4 2 0.58. Current home cardiac medications include lisinopril 20 mg at night, Plavix 75 mg at night, Lipitor 80 mg at night Echocardiogram completed revealing ejection fraction 50-55%, mild aortic stenosis, mild mitral regurgitation, mild tricuspid regurgitation REVIEW OF SYSTEMS: At the time of my exam: Unable to obtain thorough review of systems secondary to altered mental status PHYSICAL EXAM: VITAL SIGNS: Reviewed. GENERAL: Well-developed in no acute distress. HEENT: Head is normocephalic. Pupils are equal, round. Sclerae anicteric. Mucous membranes of the mouth are moist. Neck supple. No JVD or thyromegaly LUNGS: Respirations even and unlabored. Lungs essentially clear to auscultation bilaterally. HEART: Regular rate and rhythm. S1 and S2 heard. Systolic murmur noted. ABDOMEN: Soft. Nondistended. Nontender. EXTREMITIES: Normal range of motion. No clubbing or cyanosis. Peripheral pulses intact. No lower extremity edema NEUROLOGIC: Awake and alert. Oriented x 1. ASSESSMENT: Syncope Recent recurrent falls at home New onset paroxysmal atrial fibrillation with RVR, currently maintaining sinus mechanism Acute on chronic kidney disease Hypokalemia Abnormal troponins, flat, not suggestive of acute coronary syndrome History of right carotid stenosis status post TCAR 2019 Hypertension Hyperlipidemia Dementia History of hypothyroidism with abnormal TSH and free T4 PLAN: 2D echo obtained and reviewed TSH and Free T4 abnormal. Patient prescribed Synthroid on an outpatient basis. We'll defer management of this to internal medicine Continue telemetry monitoring to see if patient is having conversion pauses that may account for patients syncope Will hold off on anticoagulation at this time due to reported frequent falls at home Monitor kidney function. Nephrology consulted. Continue IV fluids Monitor electrolytes Recommend event monitor at the time of discharge Further recommendations pending patient course Nurse practitioner note has been reviewed by physician. Signing provider agrees with the documented findings, assessment, and plan of care. Past Medical History Past Medical History: Cancer, Dementia, Hearing Disorder / Deafness, Hyperlipidemia, Hypertension, Osteoarthritis (OA), Thyroid Disorder, Vascular Disorder Additional Past Medical History / Comment(s): History of bilateral breast cancer, dementia, hearing impairment and the patient wears hearing aids, carotid artery stenosis symptomatic on the right in the order of 90%, history of verti go, hypertension, hyperlipidemia, hypothyroidism and osteoarthritis. History of Any Multi-Drug Resistant Organisms: None Reported Past Surgical History: Appendectomy, Breast Surgery, Section, Orthopedic Surgery Additional Past Surgical History / Comment(s): "breast reduction" - portion of left breast and right breast removed, C-S x4, "tailbone removed" Past Anesthesia/Blood Transfusion Reactions: No Reported Reaction Past Psychological History: Anxiety Smoking Status: Never smoker, Unknown if ever smoked - Past Family History Sister(s) Family Medical History: Cancer Additional Family Medical History / Comment(s): Patient's sister had leukemia Brother(s) Family Medical History: Coronary Artery Disease (CAD) Medications and Allergies Home Medications Medication Instructions Recorded Confirmed Type Fexofenadine HCl [Anali Allergy] 180 mg PO DAILY PRN 08/23/16 05/07/21 History Sertraline [Zoloft] 25 mg PO DAILY 03/13/17 05/07/21 History risperiDONE [RisperDAL] 0.5 mg PO HS 03/10/18 05/07/21 History Acetaminophen [Tylenol Extra 1,000 mg PO BID PRN 01/27/20 05/07/21 History Strength] Atorvastatin [Lipitor] 80 mg PO HS 01/27/20 05/07/21 History Clopidogrel [Plavix] 75 mg PO HS 01/27/20 05/07/21 History Memantine [Namenda] 20 mg PO DAILY 01/27/20 05/07/21 History Diclofenac Sodium Gel [Voltaren 1 applic TOPICAL QID PRN 05/07/21 05/07/21 History Gel] Doxycycline Hyclate 100 mg PO HS 05/07/21 05/07/21 History Levothyroxine Sodium [Synthroid] 150 mcg PO DAILY 05/07/21 05/07/21 History Meclizine HCl [Bonine Chew Tab] 25 mg PO TID PRN 05/07/21 05/07/21 History lisinopriL 20 mg PO HS 05/07/21 05/07/21 History Allergies Allergy/AdvReac Type Severity Reaction Status Date / Time meperidine [From Demerol] AdvReac Nausea & Verified 05/07/21 21:29 Vomiting Physical Exam Vitals: Vital Signs Temp Pulse Resp BP Pulse Ox 05/08/21 05:00 59 L 16 123/55 96 05/08/21 03:00 58 L 16 125/58 98 05/08/21 01:00 92 16 97/66 05/07/21 20:15 97.9 F 92 16 100/65 98 Intake and Output 05/07/21 05/07/21 05/08/21 14:59 22:59 06:59 Other: Weight 76.657 kg Results 05/08/21 02:19 05/08/21 02:19 Cardiac Enzymes 05/07/21 05/07/21 05/08/21 Range/Units 21:08 21:08 00:54 AST 33 (14-36) U/L Troponin I 0.321 H* 0.282 H* (0.000-0.034) ng/mL 05/08/21 Range/Units 02:19 AST (14-36) U/L Troponin I 0.269 H* (0.000-0.034) ng/mL Coagulation 05/07/21 Range/Units 21:08 PT 10.6 (9.0-12.0) sec APTT 21.3 L (22.0-30.0) sec CBC 05/07/21 05/08/21 Range/Units 21:08 02:19 WBC 8.0 6.1 (3.8-10.6) k/uL RBC 4.28 4.02 (3.80-5.40) m/uL Hgb 12.9 12.3 (11.4-16.0) gm/dL Hct 40.0 38.4 (34.0-46.0) % Plt Count 196 191 (150-450) k/uL Comprehensive Metabolic Panel 05/07/21 05/08/21 Range/Units 21:08 02:19 Sodium 134 L 133 L (137-145) mmol/L Potassium 3.1 L 3.6 (3.5-5.1) mmol/L Chloride 100 101 (98-107) mmol/L Carbon Dioxide 26 22 (22-30) mmol/L BUN 50 H 53 H (7-17) mg/dL Creatinine 3.12 H 2.70 H (0.52-1.04) mg/dL Glucose 100 H 102 H (74-99) mg/dL Calcium 9.1 8.7 (8.4-10.2) mg/dL AST 33 (14-36) U/L ALT 20 (4-34) U/L Alkaline Phosphatase 74 (38-126) U/L Total Protein 6.2 L (6.3-8.2) g/dL Albumin 3.2 L (3.5-5.0) g/dL Current Medications Generic Name Dose Route Start Last Admin Trade Name Freq PRN Reason Stop Dose Admin Acetaminophen 1,000 mg 05/08/21 01:26 Acetaminophen Tab 500 Mg Tab PO BID PRN Pain Atorvastatin Calcium 80 mg 05/08/21 21:00 Atorvastatin 80 Mg Tab PO HS NISSA Clopidogrel Bisulfate 75 mg 05/08/21 21:00 Clopidogrel 75 Mg Tab PO HS NISSA Sodium Chloride 1,000 mls @ 100 mls/hr 05/07/21 23:30 05/08/21 00:09 Saline 0.9% IV 100 mls/hr .Q10H NISSA Administration Diltiazem HCl 125 mg/ Sodium 125 mls @ 0 mls/hr 05/08/21 00:15 Chloride IV .Q0M NISSA Protocol Per Protocol Loratadine 10 mg 05/08/21 09:00 Loratadine 10 Mg Tab PO DAILY PRN Allergy Symptoms Memantine 20 mg 05/08/21 09:00 Memantine 10 Mg Tab PO DAILY NISSA Naloxone HCl 0.2 mg 05/07/21 23:29 Naloxone 0.4 Mg/Ml 1 Ml Vial IV Q2M PRN Opioid Reversal Risperidone 0.5 mg 05/08/21 21:00 Risperidone 0.25 Mg Tab PO HS NISSA Sertraline HCl 25 mg 05/08/21 09:00 Sertraline 25 Mg Tab PO DAILY [facility] Intake and Output 05/07/21 05/07/21 05/08/21 14:59 22:59 06:59 Other: Weight 76.657 kg Patient Weight 05/08/21 06:59 Weight 76.657 kg 05/08/21 02:19 05/08/21 02:19
[2021-05-08] MEDS ORDERED: POTASSIUM CHLORIDE ER 20 MEQ TAB.ER PO STA (11:29)
--- NOTE | 2021-05-08 11:31 | P.NPCON ---
History of Present Illness - Reason for Consult acute renal failure - History of Present Illness Reason for consultation: Acute kidney injury History of present illness: Patient is a 81-year-old female seen in renal consultation for acute kidney injury. Patient was seen and examined in the emergency room. Creatinine was 3.121 admission and is 2.7 today. Patient presented to the hospital due to multiple falls and syncopal episode. Patient has history of dementia and is not a reliable historian. Her son is present at bedside. Her son states that he found his mother passed out on the floor at her house when he went to go check on her. She was acutely brought to the hospital. Her oral intake the last few days has been poor. She's also been having diarrhea. Blood pressure was as low as 97/66 this admission and is 135/50 this morning. Has been voiding. No hematuria. Receiving IV fluids. Antihypertensives are held. No history of diabetes. Vital signs are stable. General: The patient appeared well nourished and normally developed. HEENT: Bruising or lacerations noted on her forehead. LUNGS: Breath sounds decreased. HEART: Rate and Rhythm are regular. ABDOMEN: Soft, no distention. EXTREMITITES: No edema. Past Medical History Past Medical History: Cancer, Dementia, Hearing Disorder / Deafness, Hyperlipidemia, Hypertension, Osteoarthritis (OA), Thyroid Disorder, Vascular Disorder Additional Past Medical History / Comment(s): History of bilateral breast cancer, dementia, hearing impairment and the patient wears hearing aids, carotid artery stenosis symptomatic on the right in the order of 90%, history of ve rtigo, hypertension, hyperlipidemia, hypothyroidism and osteoarthritis. History of Any Multi-Drug Resistant Organisms: None Reported Past Surgical History: Appendectomy, Breast Surgery, Section, Orthopedic Surgery Additional Past Surgical History / Comment(s): "breast reduction" - portion of left breast and right breast removed, C-S x4, "tailbone removed" Past Anesthesia/Blood Transfusion Reactions: No Reported Reaction Past Psychological History: Anxiety Smoking Status: Never smoker, Unknown if ever smoked - Past Family History Sister(s) Family Medical History: Cancer Additional Family Medical History / Comment(s): Patient's sister had leukemia Brother(s) Family Medical History: Coronary Artery Disease (CAD) Medications and Allergies Home Medications Medication Instructions Recorded Confirmed Type Fexofenadine HCl [Anali Allergy] 180 mg PO DAILY PRN 05/17 02/01/22 History Sertraline [Zoloft] 25 mg PO DAILY 03/13/17 05/07/21 History risperiDONE [RisperDAL] 0.5 mg PO HS 03/10/18 05/07/21 History Acetaminophen [Tylenol Extra 1,000 mg PO BID PRN 01/27/20 05/07/21 History Strength] Atorvastatin [Lipitor] 80 mg PO HS 01/27/20 05/07/21 History Clopidogrel [Plavix] 75 mg PO HS 01/27/20 05/07/21 History Memantine [Namenda] 20 mg PO DAILY 01/27/20 05/07/21 History Diclofenac Sodium Gel [Voltaren 1 applic TOPICAL QID PRN 05/07/21 05/07/21 His tory Gel] Doxycycline Hyclate 100 mg PO HS 05/07/21 05/07/21 History Levothyroxine Sodium [Synthroid] 150 mcg PO DAILY 05/07/21 05/07/21 History Meclizine HCl [Bonine Chew Tab] 25 mg PO TID PRN 05/07/21 05/07/21 History lisinopriL 20 mg PO HS 05/07/21 05/07/21 History Allergies Allergy/AdvReac Type Severity Reaction Status Date / Time meperidine [From Demerol] AdvReac Nausea & Verified 05/07/21 21:29 Vomiting Physical Exam Vitals: Vital Signs Temp Pulse Resp BP Pulse Ox 05/08/21 10:53 75 18 135/50 99 05/08/21 05:00 59 L 16 123/55 96 05/08/21 03:00 58 L 16 125/58 98 05/08/21 01:00 92 16 97/66 05/07/21 20:15 97.9 F 92 16 100/65 98 Intake and Output 05/07/21 05/08/21 05/08/21 22:59 06:59 14:59 Other: Weight 76.657 kg Results - Lab Results Most recent lab results Calcium 8.7 mg/dL (8.4-10.2) 05/08/21 02:19 Magnesium 1.8 mg/dL (1.6-2.3) 05/07/21 21:08 05/08/21 02:19 05/08/21 02:19 Assessment and Plan Plan: Assessment: 1. Acute kidney injury mostly prerenal from poor intake and diarrhea and further worsened with the use of PHAN inhibitor. Creatinine was 3.121 admission and is 2.7 today. Creatinine in January 2020 was 0.88. Trace protein on UA. 2. Status post falls. 3. Syncopal episode from hypotension and hypovolemia likely. 4. Hypokalemia from poor intake. Replaced. Better. 5. Dementia. Plan: Maintain IV fluids. Check renal ultrasound. Avoid nephrotoxins. Continue to monitor renal function and urine output. Ejection fraction preserved. Thank you for the consultation. I will continue to follow the patient with you during her hospital stay.
--- NOTE | 2021-05-08 12:27 | US ---
EXAMINATION TYPE: US kidneys/renal and bladder DATE OF EXAM: 05/08/2021 COMPARISON: NONE CLINICAL HISTORY: mann. MANN EXAM MEASUREMENTS: Right Kidney: 9.0 x 4.3 x 4.7 cm Left Kidney: 8.3 x 4.0 x 3.8 cm Difficult exam as patient has altered mental status Right Kidney: Cystic area seen inferior pole measuring 1.6 x 1.6 x 1.4 cm Left Kidney: No hydronephrosis or masses seen Bladder: Appears wnl Bilateral Jets seen: Yes There is no evidence for hydronephrosis at this point in time. No nephrolithiasis is seen. No eloina s are identified. The urinary bladder is anechoic. Bilateral ureteral jets are seen. IMPRESSION: Cyst right kidney.
[2021-05-08] MEDS: ATORVASTATIN 80 MG TAB PO SCH (21:57)
[2021-05-08] MEDS: CLOPIDOGREL 75 MG TAB PO SCH (21:58)
[2021-05-08] MEDS: risperiDONE 0.25 MG TAB PO SCH (22:33)
[2021-05-09] MEDS: SODIUM CHLORIDE 0.9% 1,000 ML IV SCH ×2 (06:41→19:25)
[2021-05-09] MEDS: PANTOPRAZOLE 40 MG TABLET PO SCH (06:55)
[2021-05-09 07:52] LABS: Calcium 8.8 mg/dL (8.4-10.2); Magnesium 1.9 mg/dL (1.6-2.3)
--- NOTE | 2021-05-09 08:01 | P.HPIM ---
History of Present Illness H&P Date: 05/08/21 Chief Complaint: syncope Cat Kaur is an 81 yo F with PMH of alzheimer dementia, HTN, HLD, hypothyroidism who was brought to the ED due to recurrent falls and weakness. History obtained via chart review as pt is unreliable historian. Her son had went to check on her and noticed her on the floor at home, he reported that pt has had multiple falls in the past week or so and her PO intake has been decreased over this timeframe. On her initial presentation BP 100/65, HR 92, EKG showing AF with RVR. WBC 8.0, Hgb 12.9, Cr 3.1, trop 0.3, TSH 0.02, FT4 2.58. CT head/C spine no acute process. Pt given IV fluids and EKG on recheck was NSR. Pt today denies any complains and is feeling at her usual self. She denies headache, shortness of breath, vision change, chest pain. Review of Systems ROS unobtainable: due to mental status Past Medical History Past Medical History: Cancer, Dementia, Hearing Disorder / Deafness, Hyperlipidemia, Hypertension, Osteoarthritis (OA), Syncope, Thyroid Disorder, Vascular Disorder Additional Past Medical History / Comment(s): Bilateral breast cancer with surgery/chemo/radiation, bilateral [place]/wears aides, arthritis mostly in hands/ knees, vertigo, caratid artery disease with R TCAR, CKD, hypothyroid. History of Any Multi-Drug Resistant Organisms: None Reported Past Surgical History: Appendectomy, Breast Surgery, Section, Orthopedic Surgery Additional Past Surgical History / Comment(s): 2020 R TCAR, bilateral breast "reduction" for breast cancer, tailbone removed Past Anesthesia/Blood Transfusion Reactions: No Reported Reaction Smoking Status: Never smoker - Past Family History Sister(s) Family Medical History: Cancer Additional Family Medical History / Comment(s): Patient's sister had leukemia Brother(s) Family Medical History: Coronary Artery Disease (CAD) Medications and Allergies Home Medications Medication Instructions Recorded Confirmed Type Fexofenadine HCl [Anali Allergy] 180 mg PO DAILY PRN 08/23/16 05/07/21 History Sertraline [Zoloft] 25 mg PO DAILY 03/13/17 05/07/21 History risperiDONE [RisperDAL] 0.5 mg PO HS 03/10/18 05/07/21 History Acetaminophen [Tylenol Extra 1,000 mg PO BID PRN 01/27/20 05/07/21 History Strength] Atorvastatin [Lipitor] 80 mg PO HS 01/27/20 05/07/21 History Clopidogrel [Plavix] 75 mg PO HS 01/27/20 05/07/21 History Memantine [Namenda] 20 mg PO DAILY 01/27/20 05/07/21 History Diclofenac Sodium Gel [Voltaren 1 applic TOPICAL QID PRN 05/07/21 05/07/21 History Gel] Doxycycline Hyclate 100 mg PO HS 05/07/21 05/07/21 History Levothyroxine Sodium [Synthroid] 150 mcg PO DAILY 05/07/21 05/07/21 History Meclizine HCl [Bonine Chew Tab] 25 mg PO TID PRN 05/07/21 05/07/21 History lisinopriL 20 mg PO HS 05/07/21 05/07/21 History Allergies Allergy/AdvReac Type Severity Reaction Status Date / Time meperidine [From Demerol] AdvReac Nausea & Verified 05/07/21 21:29 Vomiting Physical Exam Vitals: Vital Signs Temp Pulse Pulse Resp BP BP Pulse Ox 05/09/21 03:05 97.6 F 64 18 166/82 97 05/08/21 23:15 66 17 146/63 98 05/08/21 20:25 97.7 F 71 18 133/65 99 05/08/21 15:29 71 18 121/62 97 05/08/21 12:00 63 18 137/61 95 05/08/21 10:53 75 18 135/50 99 Intake and Output 05/08/21 05/09/21 05/09/21 22:59 06:59 14:59 Other: Voiding Method Toilet Toilet Diaper Diaper # Voids 2 1 General: well developed, well nourished elderly female in NAD HEENT: Normocephalic, atraumatic, mucus membranes moist Neck: supple, no JVD, no thyromegaly CV: RRR, no murmur. Pulses 2+ Lungs: normal effort, clear throughout Abd: soft, nontender, non distended Neuro: alert. Oriented to self Skin: warm and dry Results CBC & Chem 7: 05/08/21 02:19 05/09/21 07:14 Labs: Abnormal Lab Results - Last 24 Hours (Table) 05/09/21 Range/Units 07:14 Chloride 111 H (98-107) mmol/L BUN 39 H (7-17) mg/dL Creatinine 1.41 H (0.52-1.04) mg/dL Thrombosis Risk Factor Assmnt - Choose All That Apply Any of the Below Risk Factors Present?: Yes Each Factor Represents 1 point: Obesity (BMI >25) Other Risk Factors: Yes Each Risk Factor Represents 2 Points: Malignancy Each Risk Factor Represents 3 Points: Age 75 years or older Other congenital or acquired thrombophilia - If yes, enter type in comment: No Thrombosis Risk Factor Assessment Total Risk Factor Score: 6 Thrombosis Risk Factor Assessment Level: High Risk Assessment and Plan Plan: 1. Syncope, suspect secondary to dehydration vs AF RVR. Admit and cardiology consult. Start IV fluids, continue plavix and ASA. Anticoagulation discussed with cardiology and hold due to fall risk 2. MANN, prerenal secondary to dehydration. IV fluids, nephrology consulted 3. Hypothyroidism, currently hyperthyroid. Hold synthroid, will need lower dose and close follow up outpatient. Possible contribution to AF 4. Dementia. Continue Namenda, risperdal, zoloft
[2021-05-09] MEDS: SERTRALINE 25 MG TAB PO SCH (08:45)
[2021-05-09] MEDS: MEMANTINE 5 MG TAB PO SCH ×2 (08:45→21:10)
--- NOTE | 2021-05-09 09:02 | P.PN ---
Subjective Patient is seen in follow for acute kidney injury. Renal function improving. Resting in bed. Not a reliable historian. History of dementia. Vital signs are stable. HEENT: Head exam is unremarkable. LUNGS: Breath sounds decreased. HEART: Rate and Rhythm are regular. ABDOMEN: Soft, no distention. EXTREMITITES: No edema. Objective - Vital Signs Vital signs: Vital Signs Temp 98.1 F 05/09/21 08:35 Pulse 92 05/09/21 08:35 Resp 16 05/09/21 08:35 BP 143/106 05/09/21 08:35 Pulse Ox 96 05/09/21 08:35 Intake & Output 05/08/21 05/09/21 05/09/21 18:59 06:59 18:59 Weight 76.657 kg Other: Voiding Method Toilet Toilet Diaper Diaper # Voids 1 - Labs CBC & Chem 7: 05/08/21 02:19 05/09/21 07:14 Labs: Abnormal Lab Results - Last 24 Hours (Table) 05/09/21 Range/Units 07:14 Chloride 111 H (98-107) mmol/L BUN 39 H (7-17) mg/dL Creatinine 1.41 H (0.52-1.04) mg/dL Assessment and Plan Plan: Assessment: 1. Acute kidney injury mostly prerenal from poor intake and diarrhea and further worsened with the use of PHAN inhibitor. Creatinine was 3.12 on admission and is 1.41 today. Creatinine in January 2020 was 0.88. Trace protein on UA. No hydronephrosis noted on kidney ultrasound. Left kidney atrophic. 2. Status post falls. 3. Syncopal episode from hypotension and hypovolemia likely. 4. Hypokalemia from poor intake. Replaced. Better. 5. Dementia. Plan: Decrease rate of normal saline to 50 mL an hour. Encouraged oral intake. Avoid nephrotoxins. Continue to monitor renal function and urine output. Ejection fraction preserved.
--- NOTE | 2021-05-09 11:40 | P.PN ---
Subjective Progress Note Date: 05/09/21 HISTORY OF PRESENT ILLNESS: This is a 81-year-old female with a past medical history significant for hypertension, hyperlipidemia, hypothyroidism, carotid stenosis with TCAR performed by vascular surgery in 2019, and dementia. Patient does not follow with a solid state tester. We have been asked to see the patient in consultation for syncope. Patient examined at the bedside in the emergency room. The patient has a history of dementia and is unable to provide any history. She is unsure of where she is at the time of my examination and is unsure of what happened yesterday leading to her coming to the hospital. There is no family at the bedside. According to the ER physician note, the patient has been having recurrent falls at home recently that have been unwitnessed. Yesterday the patient's son was at her house and they were having dinner when she slumped over in the chair and went unresponsive. The patient was brought to the hospital for further evaluation. The patient was found to be in A. fib with RVR. The patient does not have a documented history of atrial fibrillation. The patient converted spontaneously to sinus mechanism. She is maintaining sinus mechanism this morning with a heart rate in the 50s to 60s. The patient currently denies any dizziness or lightheadedness. She denies any chest pain or pressure. She denies any shortness of breath. The patient was also found to have an acute kidney injury with a creatinine around 3. According to the ER documentation, the patient has been having diarrhea for the past week per the patient's family. EKG reveals A. fib with RVR. Repeat EKG reveals sinus mechanism with a heart rate in the 80s with nonspecific ST-T wave changes Chest xray negative for acute process Laboratory data: WBC 6.1. Hemoglobin 12.3. Platelet count 191. Sodium 134. Potassium 3.1. BUN 50. Creatinine 3.12. Troponin 0.321. 0.282. 0.269. ProBNP 3790. TSH 0.028. Free T4 2 0.58. Current home cardiac medications include lisinopril 20 mg at night, Plavix 75 mg at night, Lipitor 80 mg at night Echocardiogram completed revealing ejection fraction 50-55%, mild aortic stenosis, mild mitral regurgitation, mild tricuspid regurgitation 05/09/2021 Patient examined this morning at the bedside. Patient denies chest pain or pressure. Denies SOB. Denies dizziness or lightheadedness. Patient is flipping between afib with RVR and sinus bradycardia. Patient did have one 3.0 second pause however this was not a conversion pause as she was in afib before and after the pause. Kidney function has improved today with a creatinine of 1.41. BUN 39. PHYSICAL EXAM: VITAL SIGNS: Reviewed. GENERAL: Well-developed in no acute distress. HEENT: Head is normocephalic. Pupils are equal, round. Sclerae anicteric. Mucous membranes of the mouth are moist. Neck supple. No JVD or thyromegaly LUNGS: Respirations even and unlabored. Lungs essentially clear to auscultation bilaterally. HEART: Regular rate and rhythm. S1 and S2 heard. Systolic murmur noted. ABDOMEN: Soft. Nondistended. Nontender. EXTREMITIES: Normal range of motion. No clubbing or cyanosis. Peripheral pulses intact. No lower extremity edema NEUROLOGIC: Awake and alert. Oriented x 1. ASSESSMENT: Syncope Recent recurrent falls at home New onset paroxysmal atrial fibrillation with RVR, possible tachybrady syndrome Acute on chronic kidney disease, improving Hypokalemia Abnormal troponins, flat, not suggestive of acute coronary syndrome History of right carotid stenosis status post TCAR 2019 Hypertension Hyperlipidemia Dementia History of hypothyroidism with abnormal TSH and free T4 PLAN: Patients synthroid has been placed on hold per internal medicine Continue telemetry monitoring to see if patient is having conversion pauses that may account for patients syncope Will hold off on anticoagulation at this time due to reported frequent falls at home Recommend event monitor at the time of discharge No indication for PPM at this time Further recommendations pending patient course Nurse practitioner note has been reviewed by physician. Signing provider agrees with the documented findings, assessment, and plan of care. Objective - Vital Signs Vital signs: Vital Signs Temp 98.1 F 05/09/21 08:35 Pulse 92 05/09/21 08:35 Resp 16 05/09/21 08:35 BP 143/106 05/09/21 08:35 Pulse Ox 96 05/09/21 08:35 Intake & Output 05/08/21 05/09/21 05/09/21 18:59 06:59 18:59 Intake Total 100 Balance 100 Weight 76.657 kg Intake: Oral 100 Other: Voiding Method Toilet Toilet Diaper Diaper # Voids 1 - Labs CBC & Chem 7: 05/08/21 02:19 05/09/21 07:14 Labs: Abnormal Lab Results - Last 24 Hours (Table) 05/09/21 Range/Units 07:14 Chloride 111 H (98-107) mmol/L BUN 39 H (7-17) mg/dL Creatinine 1.41 H (0.52-1.04) mg/dL
[2021-05-09 13:22] VITALS: BMI 30.9
--- NOTE | 2021-05-09 15:49 | P.PN ---
Subjective Progress Note Date: 05/09/21 Cat Kaur is an 81 yo F with PMH of alzheimer dementia, HTN, HLD, hypothyroidism who was brought to the ED due to recurrent falls and weakness. History obtained via chart review as pt is unreliable historian. Her son had went to check on her and noticed her on the floor at home, he reported that pt has had multiple falls in the past week or so and her PO intake has been decreased over this timeframe. On her initial presentation BP 100/65, HR 92, EKG showing AF with RVR. WBC 8.0, Hgb 12.9, Cr 3.1, trop 0.3, TSH 0.02, FT4 2.58. CT head/C spine no acute process. Pt given IV fluids and EKG on recheck was NSR. Pt today denies any complains and is feeling at her usual self. She denies headache, shortness of breath, vision change, chest pain. 05/09/2021 maintained on gentle IV fluid hydration, creatinine significantly improved, 1.41. Denies lightheadedness or dizziness. Telemetry reporting A. fi b with RVR fluctuating with sinus bradycardia, as well as a 3 second pause. Denies any chest pain, palpitations. Maintaining O2 sats in the 90s on room air. Objective - Vital Signs Vital signs: Vital Signs Temp 98.1 F 05/09/21 08:35 Pulse 78 05/09/21 11:30 Resp 16 05/09/21 11:30 BP 153/83 05/09/21 11:30 Pulse Ox 95 05/09/21 11:30 Intake & Output 05/08/21 05/09/21 05/09/21 18:59 06:59 18:59 Intake Total 100 Balance 100 Weight 76.657 kg 76.657 kg Intake: Oral 100 Other: Voiding Method Toilet Toilet Diaper Diaper # Voids 1 - Exam General: well developed, well nourished elderly female in NAD, mild pleasant confusion HEENT: Normocephalic, atraumatic, mucus membranes moist Neck: supple, no JVD, no thyromegaly CV: RRR, no murmur. Pulses 2+ Lungs: normal effort, clear throughout Abd: soft, nontender, non distended Neuro: Alert and oriented to person and place Skin: warm and dry - Labs CBC & Chem 7: 05/08/21 02:19 05/09/21 07:14 Labs: Abnormal Lab Results - Last 24 Hours (Table) 05/09/21 Range/Units 07:14 Chloride 111 H (98-107) mmol/L BUN 39 H (7-17) mg/dL Creatinine 1.41 H (0.52-1.04) mg/dL Assessment and Plan Assessment: Syncope secondary to dehydration, hypotension, A. fib RVR Status post falls Acute renal failure, prerenal secondary to dehydration Left kidney atrophic Hypokalemia, improving Hypothyroidism, currently hyperthyroidism-possibly contributed to the atrial fibrillation Dementia Plan: Continue on current medication regime ,monitoring and symptomatic t reatment. No anticoagulation at this time as per cardiology secondary to recurrent falls. Gentle IV fluid hydration, close monitoring of renal function with repeat labs ordered for a.m.Discharge planning in progress for subacute rehab tomorrow. At discharge ,we'll decrease levothyroxine to 100 mcgs daily and will need levels checked outpatient. The impression and plan of care has been dictated as directed. : I performed a history and examination of this patient, discussed the same with the dictator. I agree with the dictator's note ,documented as a scribe. Any additional findings or plans will be noted.
[2021-05-09 16:57] LABS: Glucose,Whole Blood 93 mg/dL (75-99)
[2021-05-09] MEDS: ATORVASTATIN 80 MG TAB PO SCH (21:10)
[2021-05-09] MEDS: CLOPIDOGREL 75 MG TAB PO SCH (21:10)
[2021-05-09] MEDS: risperiDONE 0.25 MG TAB PO SCH (21:59)
[2021-05-10] MEDS ORDERED: DILTIAZEM DRIP BOLUS FROM BAG 1 MG SOLN IV ONE (05:47)
[2021-05-10] MEDS ORDERED: DILTIAZEM 125 MG in SODIUM CHLORIDE 0.9% 100 ML IV SCH (06:00)
[2021-05-10] MEDS: PANTOPRAZOLE 40 MG TABLET PO SCH (06:50)
--- NOTE | 2021-05-10 09:14 | P.PN ---
Subjective Patient is seen in follow for acute kidney injury. Renal function improving. Resting in bed. Not a reliable historian. History of dementia. No changes overnight. Vital signs are stable. HEENT: Head exam is unremarkable. LUNGS: Breath sounds decreased. HEART: Rate and Rhythm are regular. ABDOMEN: Soft, no distention. EXTREMITITES: No edema. Objective - Vital Signs Vital signs: Vital Signs Temp 98.7 F 05/10/21 03:40 Pulse 63 05/10/21 03:40 Resp 18 05/10/21 03:40 BP 130/77 05/10/21 05:30 Pulse Ox 94 L 05/10/21 03:40 Intake & Output 05/09/21 05/10/21 05/10/21 18:59 06:59 18:59 Intake Total 100 Balance 100 Weight 76.657 kg Intake: Oral 100 Other: Voiding Method Toilet Toilet Diaper Diaper # Voids 0 1 - Labs CBC & Chem 7: 05/08/21 02:19 05/09/21 07:14 Assessment and Plan Plan: Assessment: 1. Acute kidney injury mostly prerenal from poor intake and diarrhea and further worsened with the use of PHAN inhibitor. Creatinine was 3.12 on admission and is 1.41 yesterday. Creatinine in January 2020 was 0.88. Trace protein on UA. No hydronephrosis noted on kidney ultrasound. Left kidney atrophic. 2. Status post falls. 3. Syncopal episode from hypotension and hypovolemia likely. 4. Hypokalemia from poor intake. Replaced. Better. 5. Dementia. Plan: Maintain normal saline at 50 mL an hour. Encouraged oral intake. Avoid nephrotoxins. Continue to monitor renal function and urine output. Ejection fraction preserved. Follow-up morning labs.
[2021-05-10 09:31] LABS: Calcium 8.6 mg/dL (8.4-10.2); Magnesium 1.7 mg/dL (1.6-2.3); Potassium 4.6 mmol/L (3.5-5.1)
[2021-05-10] MEDS: MEMANTINE 5 MG TAB PO SCH ×2 (09:55→21:14)
[2021-05-10] MEDS: SERTRALINE 25 MG TAB PO SCH (09:55)
[2021-05-10] MEDS: METOPROLOL TARTRATE 25 MG TAB PO SCH ×2 (12:09→21:14)
--- NOTE | 2021-05-10 12:19 | P.PN ---
Subjective Progress Note Date: 05/10/21 HISTORY OF PRESENT ILLNESS: This is a 81-year-old female with a past medical history significant for hypertension, hyperlipidemia, hypothyroidism, carotid stenosis with TCAR performed by vascular surgery in 2019, and dementia. Patient does not follow with a health science instructor. We have been asked to see the patient in consultation for syncope. Patient examined at the bedside in the emergency room. The patient has a history of dementia and is unable to provide any history. She is unsure of where she is at the time of my examination and is unsure of what happened yesterday leading to her coming to the hospital. There is no family at the bedside. According to the ER physician note, the patient has been having recurrent falls at home recently that have been unwitnessed. Yesterday the patient's son was at her house and they were having dinner when she slumped over in the chair and went unresponsive. The patient was brought to the hospital for further evaluation. The patient was found to be in A. fib with RVR. The patient does not have a documented history of atrial fibrillation. The patient converted spontaneously to sinus mechanism. She is maintaining sinus mechanism this morning with a heart rate in the 50s to 60s. The patient currently denies any dizziness or lightheadedness. She denies any chest pain or pressure. She denies any shortness of breath. The patient was also found to have an acute kidney injury with a creatinine around 3. According to the ER documentation, the patient has been having diarrhea for the past week per the patient's family. EKG reveals A. fib with RVR. Repeat EKG reveals sinus mechanism with a heart rate in the 80s with nonspecific ST-T wave changes Chest xray negative for acute process Laboratory data: WBC 6.1. Hemoglobin 12.3. Platelet count 191. Sodium 134. Potassium 3.1. BUN 50. Creatinine 3.12. Troponin 0.321. 0.282. 0.269. ProBNP 3790. TSH 0.028. Free T4 2 0.58. Current home cardiac medications include lisinopril 20 mg at night, Plavix 75 mg at night, Lipitor 80 mg at night Echocardiogram completed revealing ejection fraction 50-55%, mild aortic stenosis, mild mitral regurgitation, mild tricuspid regurgitation 05/09/2021 Patient examined this morning at the bedside. Patient denies chest pain or pressure. Denies SOB. Denies dizziness or lightheadedness. Patient is flipping between afib with RVR and sinus bradycardia. Patient did have one 3.0 second pause however this was not a conversion pause as she was in afib before and after the pause. Kidney function has improved today with a creatinine of 1.41. BUN 39. 05/10/2021 Patient examined this morning at the bedside. Patient denies chest pain or pressure. Denies SOB. Patient continues to flip between afib with RVR and sinus mechanism. Kidney function continues to improve with a creatinine of 1.08 today. PHYSICAL EXAM: VITAL SIGNS: Reviewed. GENERAL: Well-developed in no acute distress. HEENT: Head is normocephalic. Pupils are equal, round. Sclerae anicteric. Mucous membranes of the mouth are moist. Neck supple. No JVD or thyromegaly LUNGS: Respirations even and unlabored. Lungs essentially clear to auscultation bilaterally. HEART: Tachycadic. Irregular rate and rhythm. S1 and S2 heard. Systolic murmur noted. ABDOMEN: Soft. Nondistended. Nontender. EXTREMITIES: Normal range of motion. No clubbing or cyanosis. Peripheral pulses intact. No lower extremity edema NEUROLOGIC: Awake and alert. Oriented x 1. ASSESSMENT: Syncope Recent recurrent falls at home New onset paroxysmal atrial fibrillation with RVR, possible tachybrady syndrome Acute on chronic kidney disease, improving Hypokalemia Abnormal troponins, flat, not suggestive of acute coronary syndrome History of right carotid stenosis status post TCAR 2019 Hypertension Hyperlipidemia Dementia History of hypothyroidism with abnormal TSH and free T4 PLAN: Patients synthroid has been placed on hold per internal medicine Continue telemetry monitoring to see if patient is having conversion pauses that may account for patients syncope Will hold off on anticoagulation at this time due to reported frequent falls at home Recommend event monitor at the time of discharge Begin metoprolol 25mg BID No indication for PPM at this time Further recommendations pending patient course Nurse practitioner note has been reviewed by physician. Signing provider agrees with the documented findings, assessment, and plan of care. Objective - Vital Signs Vital signs: Vital Signs Temp 98.7 F 05/10/21 08:00 Pulse 64 05/10/21 08:00 Resp 18 05/10/21 08:00 BP 167/77 05/10/21 08:00 Pulse Ox 97 05/10/21 08:00 Intake & Output 05/09/21 05/10/21 05/10/21 18:59 06:59 18:59 Intake Total 100 840 Balance 100 840 Weight 76.657 kg Intake: Oral 100 840 Other: Voiding Method Toilet Toilet Diaper Diaper # Voids 0 1 - Labs CBC & Chem 7: 05/08/21 02:19 05/10/21 08:15 Labs: Abnormal Lab Results - Last 24 Hours (Table) 05/10/21 Range/Units 08:15 Chloride 113 H (98-107) mmol/L BUN 26 H (7-17) mg/dL Creatinine 1.08 H (0.52-1.04) mg/dL
--- NOTE | 2021-05-10 17:20 | P.PN ---
Subjective Progress Note Date: 05/10/21 Cat Kaur is an 81 yo F with PMH of alzheimer dementia, HTN, HLD, hypothyroidism who was brought to the ED due to recurrent falls and weakness. History obtained via chart review as pt is unreliable historian. Her son had went to check on her and noticed her on the floor at home, he reported that pt has had multiple falls in the past week or so and her PO intake has been decreased over this timeframe. On her initial presentation BP 100/65, HR 92, EKG showing AF with RVR. WBC 8.0, Hgb 12.9, Cr 3.1, trop 0.3, TSH 0.02, FT4 2.58. CT head/C spine no acute process. Pt given IV fluids and EKG on recheck was NSR. Pt today denies any complains and is feeling at her usual self. She denies headache, shortness of breath, vision change, chest pain. 05/09/2021 maintained on gentle IV fluid hydration, creatinine significantly improved, 1.41. Denies lightheadedness or dizziness. Telemetry reporting A. fi b with RVR fluctuating with sinus bradycardia, as well as a 3 second pause. Denies any chest pain, palpitations. Maintaining O2 sats in the 90s on room air. 05/10/2021 much more alert today .continues to fluctuate between atrial fibrillation with RVR and sinus rhythm. Antiarrhythmics further adjusted this morning. Renal function continues to improve. Denies chest pain, palpitations. Denies lightheadedness dizziness or focal deficits. Denies blurred vision. Objective - Vital Signs Vital signs: Vital Signs Temp 98.1 F 05/10/21 16:00 Pulse 66 05/10/21 16:00 Resp 18 05/10/21 16:00 BP 120/58 05/10/21 16:00 Pulse Ox 95 05/10/21 16:00 Intake & Output 05/09/21 05/10/21 05/10/21 18:59 06:59 18:59 Intake Total 100 1240 Output Total 200 Balance 100 1040 Weight 76.657 kg Intake: Intake, IV Titration 300 Amount Sodium Chloride 0.9% 1, 300 000 ml @ 50 mls/hr IV . Q20H [facility] Rx#:[id number] Oral 100 940 Output: Urine 200 Other: Voiding Method Toilet Toilet Diaper Diaper # Voids 0 1 - Exam General: well developed, well nourished elderly female in NAD, HEENT: Normocephalic, atraumatic, mucus membranes moist Neck: supple, no JVD, no thyromegaly CV: RRR, no murmur. Pulses 2+ Lungs: normal effort, clear throughout Abd: soft, nontender, non distended Neuro: Alert and oriented to person and place Skin: warm and dry - Labs CBC & Chem 7: 05/08/21 02:19 05/10/21 08:15 Labs: Abnormal Lab Results - Last 24 Hours (Table) 05/10/21 Range/Units 08:15 Chloride 113 H (98-107) mmol/L BUN 26 H (7-17) mg/dL Creatinine 1.08 H (0.52-1.04) mg/dL Assessment and Plan Assessment: Syncope secondary to dehydration, hypotension, A. fib RVR Status post falls Acute renal failure, prerenal secondary to dehydration Left kidney atrophic Hypokalemia, improving Hypothyroidism, currently hyperthyroidism-possibly contributed to the atrial fibrillation Dementia Plan: Continue on current medication regime ,monitoring and symptomatic treatment. Continue monitoring overnight secondary to further adjustments in antiarrhythmic regimen. No anticoagulation at this time as per cardiology secondary to recurrent falls. Gentle IV fluid hydration, close monitoring of renal function with repeat labs ordered for a.m.Discharge planning in progress for [facility] subacute rehab tomorrow. Social work notified. OBRA screening completed. Discharge packet left for weekend CM per Liaison. At discharge ,decrease levothyroxine to 100 mcgs daily and will need levels checked outpatient. The impression and plan of care has been dictated as directed. : I performed a history and examination of this patient, discussed the same with the dictator. I agree with the dictator's note ,documented as a scribe. Any additional findings or plans will be noted.
[2021-05-10] MEDS: SODIUM CHLORIDE 0.9% 1,000 ML IV SCH (21:08)
[2021-05-10] MEDS: ATORVASTATIN 80 MG TAB PO SCH (21:14)
[2021-05-10] MEDS: CLOPIDOGREL 75 MG TAB PO SCH (21:14)
[2021-05-10] MEDS: risperiDONE 0.25 MG TAB PO SCH (21:14)
[2021-05-11] MEDS: PANTOPRAZOLE 40 MG TABLET PO SCH (06:48)
[2021-05-11] MEDS: METOPROLOL TARTRATE 25 MG TAB PO SCH (07:47)
[2021-05-11] MEDS: SERTRALINE 25 MG TAB PO SCH (07:47)
[2021-05-11] MEDS: MEMANTINE 5 MG TAB PO SCH (07:47)
[2021-05-11 08:08] LABS: Calcium 8.8 mg/dL (8.4-10.2); Magnesium 1.4 mg/dL (1.6-2.3); Potassium 4.4 mmol/L (3.5-5.1)
--- NOTE | 2021-05-11 08:26 | P.PN ---
Subjective Patient is seen in follow for acute kidney injury. Renal function improved. Resting in bed. Not a reliable historian. History of dementia. Oral intake is better. No changes overnight. Vital signs are stable. HEENT: Head exam is unremarkable. LUNGS: Breath sounds decreased. HEART: Rate and Rhythm are regular. ABDOMEN: Soft, no distention. EXTREMITITES: No edema. Objective - Vital Signs Vital signs: Vital Signs Temp 98.2 F 05/11/21 07:49 Pulse 59 L 05/11/21 07:49 Resp 17 05/11/21 07:49 BP 165/83 05/11/21 07:49 Pulse Ox 96 05/11/21 07:49 Intake & Output 05/10/21 05/11/21 05/11/21 18:59 06:59 18:59 Intake Total 1440 Output Total 200 Balance 1240 Intake: Intake, IV Titration 300 Amount Sodium Chloride 0.9% 1, 300 000 ml @ 50 mls/hr IV . Q20H [facility] Rx#:[id number] Oral 1140 Output: Urine 200 Other: Voiding Method Toilet Diaper # Voids 1 - Labs CBC & Chem 7: 05/08/21 02:19 05/11/21 07:22 Labs: Abnormal Lab Results - Last 24 Hours (Table) 05/10/21 05/11/21 Range/Units 08:15 07:22 Chloride 113 H 112 H (98-107) mmol/L BUN 26 H 27 H (7-17) mg/dL Creatinine 1.08 H 1.08 H (0.52-1.04) mg/dL Glucose 100 H (74-99) mg/dL Magnesium 1.4 L (1.6-2.3) mg/dL Assessment and Plan Plan: Assessment: 1. Acute kidney injury mostly prerenal from poor intake and diarrhea and further worsened with the use of PHAN inhibitor. Creatinine was 3.12 on admission and is 1.08 today. Creatinine in January 2020 was 0.88. Trace protein on UA. No hydronephrosis noted on kidney ultrasound. Left kidney atrophic. 2. Status post falls. 3. Syncopal episode from hypotension and hypovolemia likely. 4. Hypokalemia from poor intake. Replaced. Better. 5. Dementia. 6. Hypomagnesemia from poor intake. Plan: Maintain normal saline at 50 mL an hour. Encouraged oral intake. Avoid nephrotoxins. Continue to monitor renal function and urine output. Ejection fraction preserved. Replace magnesium.
[2021-05-11] MEDS: SODIUM CHLORIDE 0.9% 1,000 ML IV SCH (08:37)
[2021-05-11] MEDS: MAGNESIUM SULFATE-D5W PMX 1 GM in DEXTROSE/WATER 1 100ML.BAG IVPB SCH ×2 (10:05→11:09)
[2021-05-11] MEDS ORDERED: Magnesium Replacement Protocol 1 EACH MISC MISCELLANE PRN (11:02)
[2021-05-11] MEDS ORDERED: MAGNESIUM SULFATE-D5W PMX 1 GM in DEXTROSE/WATER 1 100ML.BAG IVPB SCH (11:15)
--- NOTE | 2021-05-11 12:36 | P.PN ---
Subjective Progress Note Date: 05/11/21 PROGRESS NOTE The patient is an 81-year-old female with history of dementia who presented to the fall. She had episodes of paroxysmal atrial fibrillation, she continues to be in sinus mechanism at this time. She has severe dementia and unaware of what going on. She continues to be on Lipitor 80 mg daily, Plavix and 5 mg daily, Lopressor 25 mg twice a day PHYSICAL EXAMINATION: Blood pressure [152/80] heart rate [60] LUNGS: [Clear to auscultation] HEART: [Regular rate and rhythm, S1, S2. No S3. systolic murmur at the base] ABDOMEN: [Soft, nontender, no organomegaly] EXTREMETIES: [No edema] LAB: BUN and creatinine 27 and 1.08, potassium 4.4 IMPRESSION: 1. [ Recurrent falls of unclear etiology] 2. [ Paroxysmal atrial fibrillation was high risk for anticoagulation because of the falls] 3. [ Advanced dementia] PLAN: 1. Probable discharge to [facility] today 2. Consider outpatient event monitor to see if she has significant pauses 3. I do not recommend any aggressive cardiac workup. Objective - Vital Signs Vital signs: Vital Signs Temp 98.2 F 05/11/21 07:49 Pulse 59 L 05/11/21 07:49 Resp 17 05/11/21 07:49 BP 165/83 05/11/21 07:49 Pulse Ox 97 05/11/21 08:29 Intake & Output 05/10/21 05/11/21 05/11/21 18:59 06:59 18:59 Intake Total 1440 Output Total 200 Balance 1240 Intake: Intake, IV Titration 300 Amount Sodium Chloride 0.9% 1, 300 000 ml @ 50 mls/hr IV . Q20H [facility] Rx#:[id number] Oral 1140 Output: Urine 200 Other: Voiding Method Toilet Diaper # Voids 1 2 - Labs CBC & Chem 7: 05/08/21 02:19 05/11/21 07:22 Labs: Abnormal Lab Results - Last 24 Hours (Table) 05/11/21 Range/Units 07:22 Chloride 112 H (98-107) mmol/L BUN 27 H (7-17) mg/dL Creatinine 1.08 H (0.52-1.04) mg/dL Glucose 100 H (74-99) mg/dL Magnesium 1.4 L (1.6-2.3) mg/dL
--- NOTE | 2021-05-11 15:34 | P.DS ---
Providers Date of admission: 05/08/21 00:00 Attending physician: Sedrick Burgess MD Consults: 05/07/21 23:35 Consult Physician Urgent Consulting Provider: [facility] Consult Reason/Comments: acute svt, nstemi Do you want consulting provider notified?: Yes 05/07/21 23:36 Consult Physician Urgent Consulting Provider: Renato Fraser Consult Reason/Comments: [place] Do you want consulting provider notified?: Yes Primary care physician: Marta Burgess Hospital Course: Final Diagnosis Acute kidney injury prerenal, from poor oral intake and diarrhea also an PHAN inhibitor which is now on hold there is also trace protein on UA. 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 Hospital course This is a pleasant 81-year-old female with significant history for Alzheimer dementia, hypertension, hyperlipidemia, hypothyroidism, carotid stenosis, also TCAR procedure performed by vascular surgery in 2019. She presents to the with recurrent falls at home that have been unwitnessed as she lives alone. She did fall the day before admission and had an abrasian to her right forehead which is now bruising. Patient was than at her sons house for dinner and went slumped over and unresponsive. EMS brought patient to the hospital and found the patient in atrial flutter with a heart rate 150. Patient was converted to sinus rhythm prior to arriving to hospital. Patient is a poor historian. Patient also poor oral intake recently, and diarrhea. She denied any chest pain, shortness of breath, vision change or chest pain. Patient was evaluated cardiology this admission who was questioning a tachybradycardia syndrome patient appears to be going in and out of paroxysmal atrial fibrillation however she is currently sinus rhythm. She is a high-risk for anticoagulation due to frequent falls and is not a candidate. Cardiology is recommending an outpatient event monitor to evaluate for further monitoring for any signs of pause conversions when she is going in and out of A. fib. She was started on metoprolol 25 mg po bid, lisinopril was stopped due to acute kidney injury and we did stop her synthroid for now. She can repeat a TSH and T4 outpatient. Patient received gentle hydration with IV fluids this admission. Labs on admission included a sodium 104, potassium 3.1, BUN 50, creatinine 3.12, glucose 100, elevated troponin at 0.321, 0.282, 0.269. TSH 0.028 and free T4 2 0.58. ProBNP 3790. Hematology panel unremarkable. Urinalysis shows cloudy urine with trace protein, 1+ bilirubin, moderate leukocyte esterase, rare bacteria, Covid PCR not detected. Diagnostisc Head/Cervical Spine CT: Cerebral atrophy, chronic small vessel ischemia, mild h ydrocephalus, no change. Cervical multilevel spondylitic changes. No acute bony abnormality. No change. Left Elbow x-ray: Negative. Chest x-ray: No active cardiopulmonary disease. Echocardiogram: EF 50-55% with mild aortic stenosis, mild mitral regurgitation, mild tricuspid regurgitation, no pericardial effusion. Abdomen bladder ultrasound: No evidence for hydronephrosis, no nephrolithiasis. 05/11/2021 Patient evaluated today resting in bed. She denies any chest pain cough or shortness of breath. There is no nausea vomiting or diarrhea. She is alert and oriented 3 however she is confused at times as a poor historian. There is a history of alzheimer dementia patient continues on Namenda daily. Lungs are clear, S1-S2 auscultated, patient continues in normal sinus rhythm. Labs are stable, magnesium was replaced today, recheck as outpatient. Vital signs are currently stable, she is on room air and afebrile. Cardiology has cleared patient for discharge. Please see medication reconciliation for a list of current medications. Thank you for allowing us to participate in the care of this patient. Patient Condition at Discharge: Stable Plan - Discharge Summary Discharge Rx Participant: No New Discharge Prescriptions: New Metoprolol Tartrate [Lopressor] 25 mg PO BID #0 tab Pantoprazole [Protonix] 40 mg PO AC-BRKFST tab Continue Fexofenadine HCl [Anali Allergy] 180 mg PO DAILY PRN PRN Reason: Allergy Symptoms Sertraline [Zoloft] 25 mg PO DAILY risperiDONE [RisperDAL] 0.5 mg PO HS Acetaminophen [Tylenol Extra Strength] 1,000 mg PO BID PRN PRN Reason: Pain Atorvastatin [Lipitor] 80 mg PO HS Clopidogrel [Plavix] 75 mg PO HS Memantine [Namenda] 20 mg PO DAILY Diclofenac Sodium Gel [Voltaren Gel] 1 applic TOPICAL QID PRN PRN Reason: Pain Meclizine HCl [Bonine Chew Tab] 25 mg PO TID PRN PRN Reason: Vertigo Discontinued Levothyroxine Sodium [Synthroid] 150 mcg PO DAILY Doxycycline Hyclate 100 mg PO HS lisinopriL 20 mg PO HS Discharge Medication List Fexofenadine HCl [Anali Allergy] 180 mg PO DAILY PRN 08/23/16 [History] Sertraline [Zoloft] 25 mg PO DAILY 03/13/17 [History] risperiDONE [RisperDAL] 0.5 mg PO HS 03/10/18 [History] Acetaminophen [Tylenol Extra Strength] 1,000 mg PO BID PRN 01/27/20 [History] Atorvastatin [Lipitor] 80 mg PO HS 01/27/20 [History] Clopidogrel [Plavix] 75 mg PO HS 01/27/20 [History] Memantine [Namenda] 20 mg PO DAILY 01/27/20 [History] Diclofenac Sodium Gel [Voltaren Gel] 1 applic TOPICAL QID PRN 05/07/21 [History] Meclizine HCl [Bonine Chew Tab] 25 mg PO TID PRN 05/07/21 [History] Metoprolol Tartrate [Lopressor] 25 mg PO BID #0 tab 05/11/21 [Rx] Pantoprazole [Protonix] 40 mg PO AC-BRKFST tab 05/11/21 [Rx] Follow up Appointment(s)/Referral(s): Marta Burgess DO [Primary Care Provider] - 1-2 days Lilliam Arndt MD [STAFF PHYSICIAN] - 1 Week Renato Fraser DO [STAFF PHYSICIAN] - 1 Week Ambulatory/Diagnostic Orders: Basic Metabolic Panel [LAB.AMB] Time Frame: 2 Days, Location: None Selected Magnesium [LAB.AMB] Time Frame: 2 Days, Location: None Selected Activity/Diet/Wound Care/Special Instructions: Patient will need outpatient event monitor High risk for falls is not a candidate for anticoagulation Discharge Disposition: TRANSFER TO SNF/ECF
[2021-05-11 16:22] VITALS: BP 164/80; PULSE 64; RESP 17; TEMP 98.4
== END 2021-05-11 17:46 | DRG 683 ==
LOC: EC 20:08 → 3SCARD 05-08
PROVIDERS: ADMIT Family Medicine; ATTEND Family Medicine
DX: N17.9 Acute kidney failure, unspecified (principal); G91.9 Hydrocephalus, unspecified; I47.1 Supraventricular tachycardia; I48.92 Unspecified atrial flutter; E86.0 Dehydration; R00.2 Palpitations; R55 Syncope and collapse; E03.9 Hypothyroidism, unspecified; E05.90 Thyrotoxicosis, unspecified without thyrotoxic crisis or storm; E78.5 Hyperlipidemia, unspecified; E83.42 Hypomagnesemia; E86.1 Hypovolemia; E87.6 Hypokalemia; F02.80 Dementia in other diseases classified elsewhere, unspecified severity, without behavioral disturbance, psychotic disturbance, mood disturbance, and anxiety; G30.9 Alzheimer's disease, unspecified; H91.90 Unspecified hearing loss, unspecified ear; N18.9 Chronic kidney disease, unspecified; Z20.822 Contact with and (suspected) exposure to COVID-19; I12.9 Hypertensive chronic kidney disease with stage 1 through stage 4 chronic kidney disease, or unspecified chronic kidney disease; I48.0 Paroxysmal atrial fibrillation; N26.1 Atrophy of kidney (terminal); R29.6 Repeated falls; Z79.02 Long term (current) use of antithrombotics/antiplatelets; Z79.890 Hormone replacement therapy; Z79.899 Other long term (current) drug therapy; Z80.6 Family history of leukemia; Z82.49 Family history of ischemic heart disease and other diseases of the circulatory system; Z85.3 Personal history of malignant neoplasm of breast; Z91.81 History of falling; Z97.4 Presence of external hearing-aid; I49.5 Sick sinus syndrome
CPT/HCPCS: 36415; 70450; 71046; 72125; 76770; 80048; 80053; 81001; 83735; 83880; 84439; 84443; 84484; 85025; 85610; 85730; 87635; 93005; 93306; 94760; 99285